=== PATIENT | female | born 1990 | race Caucasian/White ===

== ENCOUNTER 2017-06-08 18:15 | Emergency (ER) | payer MEDICAID ==
[~2017-06-08] VITALS: Ht 152.4 cm; Wt 106.3 kg
[~2017-06-08 18:15] MED LIST: AMOXICILLIN500 M2 PO; BACTRIM DS 8001 TA1 PO; HYDROCODONE-APA1 TA1 PO; KEFLEX 500MG.500 MG PO; LORTAB 10/3251 TAB PO; MOTRIN 400MG.400 MG PO; PERCOCET 5/3251 EACH PO; PRENATAL PLUS1 TA1 PO; TAMIFLU 75MG CA75 MG PO; ZOLOFT100 M1; ZYRTEC10 M2 PO
--- NOTE | 2017-06-08 18:31 | Emergency Room Report ---
History of Present Illness Time Seen by [id number] Presenting Problem in Triage Pt arrived:Walked Presenting Problem:PT C/O 4 INFECTED AREAS ON HER BODY FOR 3 DAYS ALONG WITH VOMITING FOR 3 DAYS. 4 AREAS INCLUDE RECTUM,RIGHT ARM PIT, RIGHT GROIN, MID STERNAL AREA. PT HAS HX OF THESE SORES R/T AUTOIMMUNE DISORDER SINCE SHE WAS 11. 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 N Clinical Suspician of Infection? N Mental Status: 1 - Regular (Normal Baseline) Sepsis Risk:Possible Sepsis Risk Have you (or family members/close friends) recently traveled outside the [place]? N If Yes, where/when: Have you had exposure to infectious disease within the past month? N TB? Other? Specify: Source patient, RN notes reviewed, RN/MD Exam Limitations no limitations Comment This is a 27-year-old feel patient presented emergency room with multiple sores on her skin for the past 3-4 days. Patient advised that she has been nauseated, running a fever, unable to hold anything down, recently. This appears to be in contrast with her composure and examination today. ALLERGIES Coded Allergies: propranolol (From INDERAL LA) (Mild, 04/07/16) latex (04/09/16) nickel (04/09/16) topiramate (I-HIVES 04/07/16) tramadol (04/07/16) Home Medications Reported Medications Gabapentin (Neurontin) 600 MG PO BID METFORMIN HCL (Metformin 500MG) 500 MG PO BID SERTRALINE HCL (Zoloft) History Medical History General CAD? No Angina: No [place]: No Hypertension? No Hyperlipidemia? No CHF? No DVT? No PE? No COPD? No Asthma? No Anemia? No GERD? No Gastric ulcers? No GI Bleed? No Hernia? No Thyroid Problems? No Hypothyroidism? No CVA? No Seizures? No Diabetes? No Insulin Dependent: No Insulin Pump: No Home FSBS? No Renal Insuffiency? No End Stage Renal Disease? No UTI? Yes Stones? No BPH? No GB Disease: No Nephritic Syndrome? No Asplenia? No Hepatitis? No Sickle Cell Disease? No Arthritis? No Migraines? No Cataracts? No Glaucoma? No MRSA? No HIV? No TB? No Anxiety? No Depression? No Cancer? No More? 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 Family History Family Hx Diabetes Yes CAD Yes Hypertension Yes Hyperlipidemia Yes Cancer Yes TB Yes Social History Smoking Hx Smoker: Current Every Day Smoker Tobacco: Yes Type Cigarettes Packs/day < 1 Pack Alcohol Alcohol: No Review of Systems All Other Systems Reviewed and Negative Skin rash Physical Exam Vital Signs Vital Signs Date Time Temp Pulse Resp B/P Pulse O2 O2 Flow FiO2 Ox Delivery Rate 06/08 2223 99.0 95 20 117/78 98 06/08 2106 20 06/08 210 99.8 95 16 117/78 98 06/08 1823 99.3 104 20 105/63 98 General Appearance normal appearance, WD/WN, no apparent distress Respiratory Status Yes: trachea midline, chest symmetrical, non tender chest. No: respiratory distress. Lung Sounds bilateral: normal breath sounds, lungs clear. 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 I do not evaluate any fluctuant area, requiring incision and drainage. Medical Decision Making LABS/Meds/Orders Pt receiving controlled substance in ED? No Comment [id number]-nurse advised the patient is refusing to complete her IV antibiotic ( vancomycin) course, and she decided to leave AGAINST MEDICAL ADVICE. Patient encouraged to return for reevaluation within 24 hours, and another course of IV antibiotics. Advised patient to follow up PCP if no better. Patient advised that she is aware of risks and complications associated with her premature departure, without completing her IV antibiotics. While in the emergency room the patient did not have a single episode of nausea or vomiting, also remained afebrile. Additionally the patient has made couple of attempts to obtain IV narcotics which were declined. Results/Orders Laboratory Tests 06/08/171915: Lactic Acid 0.8 06/08/171915: Sodium 139, Potassium 3.2 L, Chloride 101, Carbon Dioxide 27, BUN 11, Creatinine 0.9, Estimated Creat Clear 160, Estimated GFR (MDRD) 76, Glucose 85, Calcium 8.8, Total Bilirubin 0.6, AST 12 L, ALT 18, Alkaline Phosphatase 103, Total Protein 8.2, Albumin 3.5, Globulin 4.7 H, Albumin/Globulin Ratio 0.7 L, WBC 9.6, RBC 4.90, Hgb 14.7, Hct 44.4, MCV 90.5, RDW 14.2, Plt Count 319, MPV 8.2, Gran % 72.8, Gran # 7.0, Lymphocytes % 19.0, Monocytes % 6.6, Eosinophils % 1.1, Basophils % 0.4, Lymphocytes # 1.8, Monocytes # 0.6, Eosinophils # 0.1, Basophils # 0.0, PUBS MCHC 32.9, MCH 29.8 Current Medication Orders Sig/Rena Start time Last Medication Dose Route Stop Time Status Admin Sodium Chloride 1,000 ML .STK-MED ONE 06/08 2043 DC IV Sodium Chloride 250 ML .STK-MED ONE 06/08 2042 DC IV Vancomycin HCl 0 .STK-MED ONE 06/08 2042 DC .ROUTE Ketorolac 0 .STK-MED ONE 06/08 2041 DC Tromethamine .ROUTE Ondansetron HCl 0 .STK-MED ONE 06/08 2041 DC .ROUTE Potassium Chloride 0 .STK-MED ONE 06/08 2041 DC PO Vancomycin HCl 0 .STK-MED ONE 06/08 2040 DC .ROUTE Ketorolac 30 MG ONCE ONE 06/08 2030 DC 06/08 Tromethamine IV 06/08 Ondansetron HCl 4 MG ONCE ONE 06/08 2030 CAN IV 06/08 2031 Potassium Chloride 40 MEQ ONCE ONE 06/08 2015 DC 06/08 PO 06/08 Vancomycin HCl 2,000 MG ONCE ONE 06/08 2000 DCr 06/08 Sodium Chloride 250 ML IV 06/08 Hydromorphone HCl 1 MG ONCE ONE 06/08 1945 CANr IV 06/08 1946 Ondansetron HCl 4 MG ONCE ONE 06/08 1945 CAN IV 06/08 1946 Miscellaneous 1 EACH CONSULT PHARMACY 06/08 1915 DCD 06/08 Information * 06/09 0701 2106 Ondansetron HCl 4 MG ONCE ONE 06/08 1915 DC 06/08 IV 06/08 1916 210 Sodium Chloride 10 ML PRN PRN 06/08 1915 DCD IV 06/09 190 Sodium Chloride 1,000 ML .Q1H1M 06/08 1915 DC 06/08 IV 06/08 Sodium Chloride 10 ML PRN PRN 06/08 1915 DCD IV 06/09 1902 Orders Procedure Date/time Status CULTURE, BLOOD 06/08 1903 Active LACTIC ACID 06/08 1903 Complete IV SALINE LOCK 06/08 1901 Active CBC WITH AUTO DIFF 06/08 1901 Complete CHEM 12 PROFILE 06/08 1901 Complete Departure Departure Time of Disposition 2214 Disposition Against Medical Advice Clinical Impression Primary Impression: Cellulitis Qualifiers: Site of cellulitis: unspecified site Qualified Code: L03.90 - Cellulitis, unspecified Condition STABLE Referrals Vasquez ELLSWORTH,Conor: Tomorrow-Call Office Patient Instructions DI for Cellulitis -- Adult Additional Instructions Please take the medications prescribed per instructions, follow-up with the general surgeon (Dr Sevilla) as instructed. Discharge Counseling Counseled pt/family regarding diagnosis, test results, medications/RX, home care, follow up needs Comment Please take the medications prescribed per instructions, follow-up with the general surgeon as instructed. Prescriptions Current Visit Scripts SULFAMETHOXAZOLE W/TRIMETHOPRI (Bactrim Ds Tab) 1 TABLET PO BID #20 TAB Etodolac 200 MG PO QIDP PRN apin #28 [facility] Critical Care Critical Care No at [id number]
--- NOTE | 2017-06-08 18:31 | Emergency Room Report ---
History of Present Illness Time Seen by [id number] Presenting Problem in Triage Pt arrived:Walked Presenting Problem:PT C/O 4 INFECTED AREAS ON HER BODY FOR 3 DAYS ALONG WITH VOMITING FOR 3 DAYS. 4 AREAS INCLUDE RECTUM,RIGHT ARM PIT, RIGHT GROIN, MID STERNAL AREA. PT HAS HX OF THESE SORES R/T AUTOIMMUNE DISORDER SINCE SHE WAS 11. 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 N Clinical Suspician of Infection? N Mental Status: 1 - Regular (Normal Baseline) Sepsis Risk:Possible Sepsis Risk Have you (or family members/close friends) recently traveled outside the [place]? N If Yes, where/when: Have you had exposure to infectious disease within the past month? N TB? Other? Specify: Source patient, RN notes reviewed, RN/MD Exam Limitations no limitations Comment This is a 27-year-old feel patient presented emergency room with multiple sores on her skin for the past 3-4 days. Patient advised that she has been nauseated, running a fever, unable to hold anything down, recently. This appears to be in contrast with her composure and examination today. ALLERGIES Coded Allergies: propranolol (From INDERAL LA) (Mild, 04/07/16) latex (04/09/16) nickel (04/09/16) topiramate (I-HIVES 04/07/16) tramadol (04/07/16) Home Medications Reported Medications Gabapentin (Neurontin) 600 MG PO BID METFORMIN HCL (Metformin 500MG) 500 MG PO BID SERTRALINE HCL (Zoloft) History Medical History General CAD? No Angina: No [place]: No Hypertension? No Hyperlipidemia? No CHF? No DVT? No PE? No COPD? No Asthma? No Anemia? No GERD? No Gastric ulcers? No GI Bleed? No Hernia? No Thyroid Problems? No Hypothyroidism? No CVA? No Seizures? No Diabetes? No Insulin Dependent: No Insulin Pump: No Home FSBS? No Renal Insuffiency? No End Stage Renal Disease? No UTI? Yes Stones? No BPH? No GB Disease: No Nephritic Syndrome? No Asplenia? No Hepatitis? No Sickle Cell Disease? No Arthritis? No Migraines? No Cataracts? No Glaucoma? No MRSA? No HIV? No TB? No Anxiety? No Depression? No Cancer? No More? 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 Family History Family Hx Diabetes Yes CAD Yes Hypertension Yes Hyperlipidemia Yes Cancer Yes TB Yes Social History Smoking Hx Smoker: Current Every Day Smoker Tobacco: Yes Type Cigarettes Packs/day < 1 Pack Alcohol Alcohol: No Review of Systems All Other Systems Reviewed and Negative Skin rash Physical Exam Vital Signs Vital Signs Date Time Temp Pulse Resp B/P Pulse O2 O2 Flow FiO2 Ox Delivery Rate 06/08 2223 99.0 95 20 117/78 98 06/08 2106 20 06/08 210 99.8 95 16 117/78 98 06/08 1823 99.3 104 20 105/63 98 General Appearance normal appearance, WD/WN, no apparent distress Respiratory Status Yes: trachea midline, chest symmetrical, non tender chest. No: respiratory distress. Lung Sounds bilateral: normal breath sounds, lungs clear. 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 I do not evaluate any fluctuant area, requiring incision and drainage. Medical Decision Making LABS/Meds/Orders Pt receiving controlled substance in ED? No Comment [id number]-nurse advised the patient is refusing to complete her IV antibiotic ( vancomycin) course, and she decided to leave AGAINST MEDICAL ADVICE. Patient encouraged to return for reevaluation within 24 hours, and another course of IV antibiotics. Advised patient to follow up PCP if no better. Patient advised that she is aware of risks and complications associated with her premature departure, without completing her IV antibiotics. While in the emergency room the patient did not have a single episode of nausea or vomiting, also remained afebrile. Additionally the patient has made couple of attempts to obtain IV narcotics which were declined. Results/Orders Laboratory Tests 06/08/171915: Lactic Acid 0.8 06/08/171915: Sodium 139, Potassium 3.2 L, Chloride 101, Carbon Dioxide 27, BUN 11, Creatinine 0.9, Estimated Creat Clear 160, Estimated GFR (MDRD) 76, Glucose 85, Calcium 8.8, Total Bilirubin 0.6, AST 12 L, ALT 18, Alkaline Phosphatase 103, Total Protein 8.2, Albumin 3.5, Globulin 4.7 H, Albumin/Globulin Ratio 0.7 L, WBC 9.6, RBC 4.90, Hgb 14.7, Hct 44.4, MCV 90.5, RDW 14.2, Plt Count 319, MPV 8.2, Gran % 72.8, Gran # 7.0, Lymphocytes % 19.0, Monocytes % 6.6, Eosinophils % 1.1, Basophils % 0.4, Lymphocytes # 1.8, Monocytes # 0.6, Eosinophils # 0.1, Basophils # 0.0, PUBS MCHC 32.9, MCH 29.8 Current Medication Orders Sig/Rena Start time Last Medication Dose Route Stop Time Status Admin Sodium Chloride 1,000 ML .STK-MED ONE 06/08 2043 DC IV Sodium Chloride 250 ML .STK-MED ONE 06/08 2042 DC IV Vancomycin HCl 0 .STK-MED ONE 06/08 2042 DC .ROUTE Ketorolac 0 .STK-MED ONE 06/08 2041 DC Tromethamine .ROUTE Ondansetron HCl 0 .STK-MED ONE 06/08 2041 DC .ROUTE Potassium Chloride 0 .STK-MED ONE 06/08 2041 DC PO Vancomycin HCl 0 .STK-MED ONE 06/08 2040 DC .ROUTE Ketorolac 30 MG ONCE ONE 06/08 2030 DC 06/08 Tromethamine IV 06/08 Ondansetron HCl 4 MG ONCE ONE 06/08 2030 CAN IV 06/08 2031 Potassium Chloride 40 MEQ ONCE ONE 06/08 2015 DC 06/08 PO 06/08 Vancomycin HCl 2,000 MG ONCE ONE 06/08 2000 DCr 06/08 Sodium Chloride 250 ML IV 06/08 Hydromorphone HCl 1 MG ONCE ONE 06/08 1945 CANr IV 06/08 1946 Ondansetron HCl 4 MG ONCE ONE 06/08 1945 CAN IV 06/08 1946 Miscellaneous 1 EACH CONSULT PHARMACY 06/08 1915 DCD 06/08 Information * 06/09 0701 2106 Ondansetron HCl 4 MG ONCE ONE 06/08 1915 DC 06/08 IV 06/08 1916 210 Sodium Chloride 10 ML PRN PRN 06/08 1915 DCD IV 06/09 190 Sodium Chloride 1,000 ML .Q1H1M 06/08 1915 DC 06/08 IV 06/08 Sodium Chloride 10 ML PRN PRN 06/08 1915 DCD IV 06/09 1902 Orders Procedure Date/time Status CULTURE, BLOOD 06/08 1903 Active LACTIC ACID 06/08 1903 Complete IV SALINE LOCK 06/08 1901 Active CBC WITH AUTO DIFF 06/08 1901 Complete CHEM 12 PROFILE 06/08 1901 Complete Departure Departure Time of Disposition 2214 Disposition Against Medical Advice Clinical Impression Primary Impression: Cellulitis Qualifiers: Site of cellulitis: unspecified site Qualified Code: L03.90 - Cellulitis, unspecified Condition STABLE Referrals Vasquez ELLSWORTH,Conor: Tomorrow-Call Office Patient Instructions DI for Cellulitis -- Adult Additional Instructions Please take the medications prescribed per instructions, follow-up with the general surgeon (Dr Sevilla) as instructed. Discharge Counseling Counseled pt/family regarding diagnosis, test results, medications/RX, home care, follow up needs Comment Please take the medications prescribed per instructions, follow-up with the general surgeon as instructed. Prescriptions Current Visit Scripts SULFAMETHOXAZOLE W/TRIMETHOPRI (Bactrim Ds Tab) 1 TABLET PO BID #20 TAB Etodolac 200 MG PO QIDP PRN apin #28 [facility] ED Critical Care Critical Care No at 0053
[2017-06-08] MEDS ORDERED: METFORMIN 500M500 MG PO (18:33)
[2017-06-08] MEDS ORDERED: NEURONTIN600 MG PO (18:33)
--- OUTSIDE RECORDS SUMMARY | 2017-06-08 18:51 | External Medical Summary Rpt | CCD ---
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 04 04 2 56 28 SO 36 TA Ac IL 00 -0 -2 .0 PE 99 MA ti OS 00 1- 9- 00 RS 03 RE ve EC 45 20 20 N 50 11 11 FA JA OT 4 MN NE C LY T [address] UG MG TA BL ET UT 00 04 04 2 6. [address] Ac OV 08 -0 -2 70 PE 99 ON ti EN 51 1- 9- 0 RS 00 E ve TI 13 20 20 DI L 20 11 11 FA XI HF 1 MN E A LY D 90 DR VILLALOBOS UG G IN CLARK LE R UT 00 04 04 2 [address] Ac OP 24 -0 -2 .0 PE 99 ON ti RA 50 1- 9- 00 RS 01 E ve NO 08 20 20 DI LO 41 11 11 FA XI L 1 MN E ER LY D 60 DR UG MG CA PS UL E BUNN 00 04 04 2 [address] Ac CR 59 -0 -2 0. PE 99 ON ti AL 10 RS 04 E ve FA 78 20 20 0 DI TE 00 11 11 FA XI 1 5 MN E LY D GM DR AMAYA UG BL ET NA 68 03 04 1 60 30 SO 36 CL Ac UT 46 -0 -2 .0 PE 75 AR ti OX 20 8 6 RS 13 KE ve EN 19 20 20 00 11 11 FA DE 50 5 MN RE 0 LY K MG J DR TA UG BL ET 00 06 04 2 60 30 SO 34 TA Ac 17 -1 -0 .0 PE 48 MA ti 25 1- 1- 00 RS 85 RE ve 66 20 20 N 56 10 11 FA JA 0 MN NE LY T DR UG MA 00 04 04 2 9. 30 SO 36 TA Ac XA 00 -0 -0 00 PE 99 MA ti LT 60 1- 1- 0 RS 02 RE ve 26 20 20 N 10 71 11 11 FA JA 8 MN NE MG LY T TA DR BL UG ET UT 37 04 04 2 56 28 SO 36 TA Ac IL 00 -0 -0 .0 PE 99 MA ti OS 00 RS 03 RE ve EC 45 20 20 N 50 11 11 FA JA OT 4 MN NE C LY T [address] UG MG TA BL ET UT 00 04 04 2 [address] Ac OP 24 -0 -0 .0 PE 99 ON ti RA 50 RS 01 E ve NO 08 20 20 DI LO 41 11 11 FA XI L 1 MN E ER LY D 60 DR BRIGIDO MG CA PS UL E BUNN 00 04 04 2 [address] Ac CR 59 -0 -0 0. PE 99 ON ti AL 10 RS 04 E ve FA 78 20 20 0 DI TE 00 11 11 FA XI 1 5 MN E LY D GM DR TA UG BL ET VE 68 04 04 0 [address] Ac NL 38 -0 -0 0. PE 99 ON ti AF 20 RS 05 E ve AX 02 20 20 0 DI IN 10 11 11 FA XI E 1 MN E HC LY D L 75 DR UG MG TA BL ET UT 00 04 04 2 6. [address] Ac OV 08 -0 -0 70 PE 99 ON ti EN 51 1- 1- 0 RS 00 E ve TI 13 20 20 DI L 20 11 11 FA XI HF 1 MN E A LY D 90 DR VILLALOBOS UG G IN CLARK LE R NA 68 03 03 1 60 30 SO 36 CL Ac UT 46 -0 -0 .0 PE 75 AR ti OX 20 8- 8- 00 RS 13 KE ve EN 19 20 20 00 11 11 FA DE 50 5 MN RE 0 LY K MG J DR TA UG BL ET VE 68 01 02 2 60 30 SO 36 TA Ac NL 38 -0 -2 .0 PE 16 MA ti AF 20 4- 1- 00 RS 96 RE ve AX 02 20 20 N IN 10 11 11 FA JA E 1 MN NE HC LY T L 75 DR UG MG TA BL ET MA 00 12 02 2 9. 30 SO 35 TA Ac XA 00 -0 -2 00 PE 93 MA ti LT 60 3- 1- 0 RS 98 RE ve 26 20 20 N 10 71 10 11 FA JA 8 MN NE MG LY T TA DR BL UG ET UT 00 12 02 2 6. [address] Ac OV 08 -0 -2 70 PE 93 ON ti EN 51 3- 1- 0 RS 93 E ve TI 13 20 20 DI L 20 10 11 FA XI HF 1 MN E A LY D 90 DR MC UG G IN CLARK LE R TA 00 02 02 0 [address] Ac MN 00 -0 -0 .0 PE 46 ON ti FL 40 7- 7- 00 RS 24 E ve U 80 20 20 DI 75 08 11 11 FA XI 5 MN E MG LY D CA DR PS UG UL E ME 00 02 02 0 [address] Ac TH 60 -0 -0 .0 PE 46 ON ti YL 34 7- 7- 00 RS 25 E ve UT 59 20 20 DI ED 31 11 11 FA XI NI 5 MN E SO LY D LO NE DR 4 UG MG DO SE PK 54 02 02 0 [address] Ac 83 -0 -0 0. PE 46 ON ti 80 7- 7- 00 RS 26 E ve 54 20 20 0 DI 48 11 11 FA XI 0 MN E LY D DR UG AZ 00 02 02 0 6. [address] Ac IT 78 -0 -0 00 PE 46 ON ti HR 11 7- 7- 0 RS 27 E ve OM 49 20 20 DI YC 66 11 11 FA XI IN 8 MN E LY D [address] MG UG TA BL ET UT 00 12 01 2 6. [address] Ac OV 08 -0 -2 70 PE 93 ON ti EN 51 3- 4- 0 RS 93 E ve TI 13 20 20 DI L 20 10 11 FA XI HF 1 MN E A LY D 90 DR UG G IN CLARK LE R 49 10 01 2 30 30 SO 35 TA Ac 88 -2 -2 .0 PE 57 MA ti 40 7- 4- 00 RS 77 RE ve 28 20 20 N 20 10 11 FA JA 1 MN NE LY T DR UG 00 10 01 2 60 5 SO 35 TA Ac 09 -2 -2 .0 PE 51 MA ti 50 0- 4- 00 RS 66 RE ve 24 20 20 N 00 10 11 FA JA 1 MN NE LY T DR UG UT 37 10 01 2 28 28 SO 35 TA Ac IL 00 -2 -2 .0 PE 51 MA ti OS 00 0- 4- 00 RS 68 RE ve EC 45 20 20 N 50 10 11 FA JA OT 4 MN NE C LY T [address] UG MG TA BL ET 00 12 01 2 9. 30 SO 35 TA Ac 00 -0 -2 00 PE 93 MA ti 60 3- 4- 0 RS 98 RE ve 26 20 20 N 71 10 11 FA JA 2 MN NE LY T DR UG 59 07 01 5 1. 90 SO 34 TA Ac 76 -2 -1 00 PE 80 MA ti 24 8- 9- 0 RS 67 RE ve 53 20 20 N 80 10 11 FA JA 1 MN NE LY T DR UG FL 00 01 01 0 3. 3 SO 36 TA Ac UC 17 -0 -0 00 PE 16 MA ti ON 25 4- 4- 0 RS 95 RE ve AZ 41 20 20 N OL 21 11 11 FA JA E 1 MN NE 15 LY T [address] UG TA BL ET VE 68 01 01 2 60 30 SO 36 TA Ac NL 38 -0 -0 .0 PE 16 MA ti AF 20 4- 4- 00 RS 96 RE ve AX 02 20 20 N IN 10 11 11 FA JA E 1 MN NE HC LY T L 75 DR UG MG TA BL ET PA 68 10 12 2 30 30 SO 35 TA Ac RO 38 -2 -0 .0 PE 51 MA ti XE 20 0- 3- 00 RS 67 RE ve TI 09 20 20 N NE 80 10 10 FA JA 6 MN NE HC LY T L 20 DR UG MG TA BL ET UT 37 10 12 2 28 28 SO 35 TA Ac IL 00 -2 -0 .0 PE 51 MA ti OS 00 0- 3- 00 RS 68 RE ve EC 45 20 20 N 50 10 10 FA JA OT 4 MN NE C LY T [address] UG MG TA BL ET 49 10 12 2 30 30 SO 35 TA Ac 88 -2 -0 .0 PE 57 MA ti 40 7- 3- 00 RS 77 RE ve 28 20 20 N 20 10 10 FA JA 1 MN NE LY T DR UG 00 12 12 2 9. 30 SO 35 TA Ac 00 -0 -0 00 PE 93 MA ti 60 3- 3- 0 RS 98 RE ve 26 20 20 N 71 10 10 FA JA 2 MN NE LY T DR UG 00 01 12 5 30 30 SO 33 TA Ac 00 -2 -0 .0 PE 35 MA ti 60 0- 3- 00 RS 44 RE ve 11 20 20 N 73 10 10 FA JA 1 MN NE LY T DR UG 00 10 12 2 60 5 SO 35 TA Ac 09 -2 -0 .0 PE 51 MA ti 50 0- 3- 00 RS 66 RE ve 24 20 20 N 00 10 10 FA JA 1 MN NE LY T DR UG UT 00 12 12 2 6. [address] Ac OV 08 -0 -0 70 PE 93 ON ti EN 51 3- 3- 0 RS 93 E ve TI 13 20 20 DI L 20 10 10 FA XI HF 1 MN E A LY D 90 DR MC UG G IN CLARK LE R BUNN 00 12 12 2 [address] Ac CR 59 -0 -0 0. PE 94 ON ti AL 10 3- 3- 00 RS 00 E ve FA 78 20 20 0 DI TE 00 10 10 FA XI 1 5 MN E LY D GM DR TA UG BL ET UT 00 10 11 0 6. 15 SO 35 TA Ac OV 08 -2 -1 70 PE 57 MA ti EN 51 7- 0- 0 RS 79 RE ve TI 13 20 20 N L 20 10 10 FA JA HF 1 MN NE A LY T 90 DR MC UG G IN CLARK LE R UT 00 10 10 0 20 8 SO 35 TA Ac ED 59 -2 -2 .0 PE 57 MA ti NI 15 7- 7- 00 RS 76 RE ve SO 44 20 20 N NE 20 10 10 FA JA 5 MN NE [address] UG TA BL ET 49 10 10 2 30 30 SO 35 TA Ac 88 -2 -2 .0 PE 57 MA ti 40 7- 7- 00 RS 77 RE ve 28 20 20 N 20 10 10 FA JA 1 MN NE LY T DR UG 00 10 10 0 12 30 SO 35 TA Ac 00 -2 -2 .0 PE 57 MA ti 60 7- 7- 00 RS 78 RE ve 26 20 20 N 71 10 10 FA JA 2 MN NE LY T DR UG CL 00 10 10 0 20 10 SO 35 TA Ac AR 78 -2 -2 .0 PE 57 MA ti IT 11 7- 7- 00 RS 75 RE ve HR 96 20 20 N OM 26 10 10 FA JA YC 0 MN NE IN LY T 50 DR 0 UG MG TA BL ET AM 00 10 10 0 30 10 SO 35 TA Ac OX 78 -2 -2 .0 PE 55 MA ti IC 12 5- 5- 00 RS 57 RE ve IL 61 20 20 N LI 30 10 10 FA JA N 5 MN NE [address] L[address] UG CA PS UL E 60 10 10 0 24 6 SO 35 TA Ac 25 -2 -2 0. PE 55 MA ti 80 5- 5- 00 RS 58 RE ve 23 20 20 0 N 91 10 10 FA JA 6 MN NE LY T DR UG 00 10 10 2 60 5 SO 35 TA Ac 09 -2 -2 .0 PE 51 MA ti 50 0- 0- 00 RS 66 RE ve 24 20 20 N 00 10 10 FA JA 1 MN NE LY T DR UG PA 68 10 10 2 30 30 SO 35 TA Ac RO 38 -2 -2 .0 PE 51 MA ti XE 20 0- 0- 00 RS 67 RE ve TI 09 20 20 N NE 80 10 10 FA JA 6 MN NE HC LY T L 20 DR UG MG TA BL ET UT 37 10 10 2 28 28 SO 35 TA Ac IL 00 -2 -2 .0 PE 51 MA ti OS 00 0- 0- 00 RS 68 RE ve EC 45 20 20 N 50 10 10 FA JA OT 4 MN NE C LY T [address] UG MG TA BL ET 59 07 10 5 1. 90 SO 34 TA Ac 76 -2 -1 00 PE 80 MA ti 24 8- 9- 0 RS 67 RE ve 53 20 20 N 80 10 10 FA JA 1 MN NE LY T DR UG VE 00 01 10 5 18 30 SO 33 TA Ac NT 17 -2 -1 .0 PE 35 MA ti OL 30 0- 1- 00 RS 42 RE ve IN 68 20 20 N 22 10 10 FA JA HF 0 MN NE A LY T 90 DR MC UG G IN CLARK LE R 00 09 09 0 24 4 SO 35 WO Ac 59 -2 -2 .0 PE 25 NG ti 10 1- 1- 00 RS 65 , ve 34 20 20 MD 90 10 10 FA 5 MN LE LY SL EY DR BRIGIDO VE 00 01 09 5 18 30 SO 33 TA Ac NT 17 -2 -1 .0 PE 35 MA ti OL 30 0- 0- 00 RS 42 RE ve IN 68 20 20 N 22 10 10 FA JA HF 0 MN NE A LY T 90 DR SMILEY G IN CLARK LE R OX 00 09 09 0 20 3 SO 35 WO Ac YC 40 -0 -0 .0 PE 15 NG ti OD 60 9- 9- 00 RS 33 , ve ON 51 20 20 MD E- 20 10 10 FA AC 5 MN LE ET LY SL AM EY IN DR OP UG HE N 5- 32 5 CE 68 09 09 0 20 10 SO 35 WO Ac FA 18 -0 -0 .0 PE [address] 00 00 RS 34 , ve OX 18 20 20 MD IL 00 10 10 FA 1 MN LE 50 LY SL [address] UG CA PS UL E OX 00 08 08 0 21 5 WA 22 BU Ac YC 40 -2 -2 .0 L- 18 SE ti OD 60 5- 5- 00 MA 21 MA ve ON 51 20 20 RT 9 N E- 20 10 10 JA AC 1 PH SO ET AR N AM MA L IN CY OP # HE N 10 5- 04 32 93 5 CE 68 08 08 0 28 7 WA 70 BU Ac PH 18 -2 -2 .0 L- 44 SE ti AL 00 5- 5- 00 MA 93 MA ve EX 12 20 20 RT 3 N IN 20 10 10 JA 1 PH SO 50 AR N 0 MA L MG CY # CA PS 10 UL 04 E 93 BUNN 62 04 08 2 9. 30 SO 34 TA Ac MA 75 -2 -0 00 PE 12 MA ti TR 60 6- 6- 0 RS 27 RE ve IP 52 20 20 N TA 26 10 10 FA JA N 9 MN NE BUNN LY T CC DR 10 UG 0 MG TA BL ET 00 06 08 2 60 30 SO 34 TA Ac 17 -1 -0 .0 PE 48 MA ti 25 1- 6- 00 RS 85 RE ve 66 20 20 N 56 10 10 FA JA 0 MN NE LY T DR BRIGIDO VE 00 01 08 5 18 30 SO 33 TA Ac NT 17 -2 -0 .0 PE 35 MA ti OL 30 0- 4- 00 RS 42 RE ve IN 68 20 20 N 22 10 10 FA JA HF 0 MN NE A LY T 90 DR SMILEY G IN CLARK LE R 59 07 07 5 1. 90 SO 34 TA Ac 76 -2 -2 00 PE 80 MA ti 24 8- 8- 0 RS 67 RE ve 53 20 20 N 80 10 10 FA JA 1 MN NE LY T DR UG VE 00 01 07 5 18 30 SO 33 TA Ac NT 17 -2 -0 .0 PE 35 MA ti OL 30 0- 7- 00 RS 42 RE ve IN 68 20 20 N 22 10 10 FA JA HF 0 MN NE A LY T 90 DR SMILEY G IN CLARK LE R CL 00 01 07 5 60 30 SO 33 TA Ac ON 37 -2 -0 .0 PE 35 MA ti ID 80 0- 6- 00 RS 40 RE ve IN 15 20 20 N E 21 10 10 FA JA HC 0 MN NE L LY T 0. 1 DR MG UG TA BL ET 00 06 06 2 60 30 SO 34 TA Ac 17 -1 -1 .0 PE 48 MA ti 25 1- 1- 00 RS 85 RE ve 66 20 20 N 56 10 10 FA JA 0 MN NE LY T DR UG VE 00 01 06 5 18 30 SO 33 TA Ac NT 17 -2 -0 .0 PE 35 MA ti OL 30 0- 8- 00 RS 42 RE ve IN 68 20 20 N 22 10 10 FA JA HF 0 MN NE A LY T 90 DR SMILEY G IN CLARK LE R 00 01 06 5 30 30 SO 33 TA Ac 00 -2 -0 .0 PE 35 MA ti 60 0- 8- 00 RS 44 RE ve 11 20 20 N 73 10 10 FA JA 1 MN NE LY T DR UG TO 68 03 06 2 90 30 SO 33 TA Ac PI 46 -2 -0 .0 PE 90 MA ti RA 20 9- 8- 00 RS 64 RE ve MA 15 20 20 N TE 36 10 10 FA JA 0 MN NE [address] UG TA BL ET 00 04 06 2 60 30 SO 34 TA Ac 11 -2 -0 .0 PE 08 MA ti 57 0- 8- 00 RS 13 RE ve 01 20 20 N 81 10 10 FA JA 3 MN NE LY T DR UG CL 00 01 05 5 60 30 SO 33 TA Ac ON 37 -2 -2 .0 PE 35 MA ti ID 80 0- 6- 00 RS 40 RE ve IN 15 20 20 N E 21 10 10 FA JA HC 0 MN NE L LY T 0. 1 DR MG UG TA BL ET CL 00 05 05 0 60 30 SO 34 TA Ac AR 55 -2 -2 .0 PE 33 MA ti AV 51 0- 0- 00 RS 40 RE ve IS 05 20 20 N 78 10 10 FA JA 40 6 MN NE LY T MG DR CA UG PS UL E CL 00 05 05 0 45 30 SO 34 TA Ac ON 18 -1 -1 .0 PE 32 MA ti AZ 50 9- 9- 00 RS 33 RE ve EP 06 20 20 N AM 31 10 10 FA JA 0 MN NE 0. LY T [address] UG TA BL ET 59 05 05 0 1. 90 SO 34 TA Ac 76 -1 -1 00 PE 25 MA ti 24 1- 1- 0 RS 11 RE ve 53 20 20 N 80 10 10 FA JA 1 MN NE LY T DR UG AL 24 05 05 0 24 8 SO 34 Ac LE 38 -0 -0 .0 PE 22 LL ti RG 50 7- 7- 00 RS 85 AF ve Y 46 20 20 LO 25 26 10 10 FA R 2 MN OS MG LY IA S CA DR M PS UG UL E TO 68 03 05 2 90 30 SO 33 TA Ac PI 46 -2 -0 .0 PE 90 MA ti RA 20 9- 6- 00 RS 64 RE ve MA 15 20 20 N TE 36 10 10 FA JA 0 MN NE [address] UG TA BL ET TR 60 05 05 0 60 5 SO 34 TA Ac IA 43 -0 -0 .0 PE 21 MA ti MC 20 6- 6- 00 RS 44 RE ve IN 56 20 20 N OL 16 10 10 FA JA ON 0 MN NE E LY T 0. 1% DR UG LO TI ON 50 05 05 0 30 10 SO 34 TA Ac 11 -0 -0 .0 PE 20 MA ti 10 5- 5- 00 RS 65 RE ve 30 20 20 N 80 10 10 FA JA 2 MN NE LY T DR UG UT 00 05 05 0 12 6 SO 34 TA Ac ED 59 -0 -0 .0 PE 20 MA ti NI 15 5- 5- 00 RS 66 RE ve SO 44 20 20 N NE 20 10 10 FA JA 5 MN NE [address] UG TA BL ET VE 00 01 04 5 18 30 SO 33 TA Ac NT 17 -2 -2 .0 PE 35 MA ti OL 30 0- 8- 00 RS 42 RE ve IN 68 20 20 N 22 10 10 FA JA HF 0 MN NE A LY T 90 DR MC UG G IN CLARK LE R BUNN 62 04 04 2 9. 30 SO 34 TA Ac MA 75 -2 -2 00 PE 12 MA ti TR 60 6- 6- 0 RS 27 RE ve IP 52 20 20 N TA 26 10 10 FA JA N 9 MN NE BUNN LY T CC DR 10 UG 0 MG TA BL ET 00 04 04 2 60 30 SO 34 TA Ac 11 -2 -2 .0 PE 08 MA ti 57 0- 0- 00 RS 13 RE ve 01 20 20 N 81 10 10 FA JA 3 MN NE LY T DR UG IB 55 04 04 0 60 15 SO 34 TA Ac UP 11 -2 -2 .0 PE 08 MA ti RO 10 0- 0- 00 RS 14 RE ve FE 68 20 20 N N 40 10 10 FA JA 80 5 MN NE [address] TA UG BL ET CL 00 04 04 0 60 30 SO 34 TA Ac AR 55 -2 -2 .0 PE 08 MA ti AV 51 0- 0- 00 RS 16 RE ve IS 05 20 20 N 78 10 10 FA JA 40 6 MN NE LY T MG DR CA UG PS UL E TO 68 03 03 2 90 30 SO 33 TA Ac PI 46 -2 -2 .0 PE 90 MA ti RA 20 9 9- 00 RS 64 RE ve MA 15 20 20 N TE 36 10 10 FA JA 0 MN NE [address] UG TA BL ET DO 00 03 03 0 28 14 SO 33 TA Ac XY 14 -2 -2 .0 PE 90 MA ti CY 33 9- 9- 00 RS 65 RE ve CL 14 20 20 N IN 20 10 10 FA JA E 5 MN NE HY LY T CL AT DR E UG 10 0 MG CA P UT 10 03 03 0 40 7 SO 33 TA Ac OM 70 -2 -2 .0 PE 90 MA ti ET 20 9 9 00 RS 66 RE ve CLARK 00 20 20 N ZI 31 10 10 FA JA NE 0 MN NE LY T 25 DR MG UG TA BL ET RA 53 01 03 5 60 30 SO 33 TA Ac NI 74 -2 -0 .0 PE 35 MA ti TI 60 0- 4- 00 RS 43 RE ve DI 25 20 20 N NE 30 10 10 FA JA 5 MN NE 15 LY T [address] UG TA BL ET 00 01 03 5 30 30 SO 33 TA Ac 00 -2 -0 .0 PE 35 MA ti 60 0- 4- 00 RS 44 RE ve 11 20 20 N 73 10 10 FA JA 1 MN NE LY T DR UG CL 00 01 03 5 60 30 SO 33 TA Ac ON 37 -2 -0 .0 PE 35 MA ti ID 80 0- 4- 00 RS 40 RE ve IN 15 20 20 N E 21 10 10 FA JA HC 0 MN NE L LY T 0. 1 DR MG UG TA BL ET VE 00 01 03 5 18 30 SO 33 TA Ac NT 17 -2 -0 .0 PE 35 MA ti OL 30 0- 4- 00 RS 42 RE ve IN 68 20 20 N 22 10 10 FA JA HF 0 MN NE A LY T 90 DR MC UG G IN CLARK LE R DE 60 01 02 00 [address] Ac XA 43 -2 -1 .0 PE 43 ON ti ME 20 9- 1- 00 RS 17 E ve TH 46 20 20 DI 60 10 10 FA XI ON 8 MN E E LY D 0. 5 DR MG UG /5 ML EL X BA 00 02 00 [address] Ac NO 90 -2 -1 0. PE 43 ON ti PH 45 9- 1- 00 RS 17 E ve EN 17 20 20 0 DI 41 10 10 FA XI 12 6 MN E .[address] /5 UG ML SO CHAVEZ TI ON NY 00 02 00 [address] 60 -2 -1 .0 PE 43 ON ti AT 31 9- 1- 00 RS 17 E ve IN 48 20 20 DI 15 10 10 FA XI 10 8 MN E 0, LY D [address] UN UG IT /M L BUNN SP CH 00 02 00 [address] Ac ER 60 -2 -1 8. PE 43 ON ti AT 31 9- 1- 00 RS 16 E ve US 07 20 20 0 DI SI 55 10 10 FA XI N 4 MN E AC LY D SY DR RU UG P AZ 64 01 02 00 6. [address] Ac IT 67 -2 -1 00 PE 43 ON ti HR 90 9- 1- 0 RS 15 E ve OM 96 20 20 DI YC 10 10 10 FA XI IN 5 MN E LY D [address] MG UG TA BL ET TI 00 07 24 00 40 14 SO 33 TA Ac ZA 18 -1 -2 .0 PE 30 MA ti NI 50 4- 8- 00 RS 99 RE ve DI 03 20 20 N NE 45 10 10 FA JA 1 MN NE HC LY T L 2 DR MG UG TA BL ET NA 68 01 01 00 60 30 SO 33 TA Ac UT 46 -1 -2 .0 PE 30 MA ti OX 20 4- 8- 00 RS 98 RE ve EN 19 20 20 N 00 10 10 FA JA 50 5 MN NE [address] TA UG BL ET CL 00 01 00 60 30 SO 33 TA Ac ON 37 -2 -2 .0 PE 35 MA ti ID 80 0- 8- 00 RS 40 RE ve IN 15 20 20 N E 21 10 10 FA JA HC 0 MN NE L LY T 0. 1 DR MG UG TA BL ET RA 53 01 00 60 30 SO 33 TA Ac NI 74 -2 -2 .0 PE 35 MA ti TI 60 0- 8- 00 RS 43 RE ve DI 25 20 20 N NE 30 10 10 FA JA 5 MN NE 15 LY [address] UG TA BL ET CO 50 01 00 30 30 SO 33 TA Ac NC 45 -2 -2 .0 PE 35 MA ti ER 80 0- 8- 00 RS 41 RE ve TA 58 20 20 N 60 10 10 FA JA ER 1 MN NE LY T 36 DR MG UG TA BL ET TO 68 01 00 70 28 SO 33 TA Ac PI 46 -1 -2 .0 PE 30 MA ti RA 20 4- 8- 00 RS 97 RE ve MA 10 20 20 N TE 86 10 10 FA JA 0 MN NE [address] UG TA BL ET VE 00 07 24 00 8. 15 SO 33 TA Ac NT 17 -2 -2 00 PE 35 MA ti OL 30 0- 8- 0 RS 42 RE ve IN 68 20 20 N 22 10 10 FA JA HF 4 MN NE A LY T 90 DR MC UG G IN CLARK LE R 00 01 01 00 30 30 SO 33 TA Ac 00 -2 -2 .0 PE 35 MA ti 60 0- 8- 00 RS 44 RE ve 11 20 20 N 73 10 10 FA JA 1 MN NE LY T DR UG UT 00 10 01 00 6. 15 SO 32 TA Ac OV 08 -0 -1 70 PE 44 MA ti EN 51 5- 4- 0 RS 26 RE ve TI 13 20 20 N L 20 09 10 FA JA HF 1 MN NE A LY T 90 DR MC UG G IN CLARK LE R ME 00 08 12 01 1. 90 SO [address] 70 -2 -1 00 PE 06 MA ti OX 36 4- 7- 0 RS 97 RE ve YP 80 20 20 N RO 10 09 09 FA JA GE [address] LY T ER ON DR E UG 15 0 MG /M L BU 00 11 12 00 12 10 SO 32 TA Ac TA 14 -3 -1 0. PE 93 MA ti LB 31 0- 7- 00 RS 35 RE ve -A 78 20 20 0 N CE 70 09 09 FA JA TA 1 MN NE MN LY T N- CA DR FF UG 50 -3 25 -4 0 00 11 12 00 56 7 SO 32 TA Ac 07 -3 -1 .0 PE 93 MA ti 46 0- 7- 00 RS 36 RE ve 30 20 20 N 41 09 09 FA JA 3 MN NE LY T DR UG UT 00 11 12 00 12 6 SO 32 TA Ac ED 59 -3 -1 .0 PE 93 MA ti NI 15 0- 7- 00 RS 37 RE ve SO 44 20 20 N NE 20 09 09 FA JA 5 MN NE [address] UG TA BL ET AM 00 11 11 00 20 10 SO 32 TA Ac OX 14 -0 -1 .0 PE 73 MA ti IC 39 5- 9- 00 RS 25 RE ve IL 95 20 20 N LI 10 09 09 FA JA N 1 MN NE 87 LY T [address] UG TA BL ET UT 00 11 11 00 12 6 SO 32 TA Ac OM 60 -0 -1 0. PE 68 MA ti ET 31 2- 9- 00 RS 67 RE ve CLARK 58 20 20 0 N ZI 55 09 09 FA JA NE 8 MN NE -C LY T OD EI DR NE UG SY RU P CL 00 10 11 00 20 10 SO 32 TA Ac AR 78 -2 -0 .0 PE 67 MA ti IT 11 9- 5- 00 RS 04 RE ve HR 96 20 20 N OM 26 09 09 FA JA YC 0 MN NE IN LY T 50 DR 0 UG MG TA BL ET 66 10 11 00 11 12 SO 32 TA Ac 99 -2 -0 8. PE 67 MA ti 20 9- 5- 00 RS 05 RE ve 22 20 20 0 N 00 09 09 FA JA 4 MN NE LY T DR UG PO 51 10 10 00 52 30 SO 32 TA Ac LY 99 -0 -2 7. PE 44 MA ti ET 10 5- 2- 00 RS 29 RE ve HY 45 20 20 0 N LE 75 09 09 FA JA NE 7 MN NE LY T GL YC DR OL UG 33 50 PO WD CL 00 09 10 00 60 30 SO 32 TA Ac ON 37 -0 -2 .0 PE 21 MA ti ID 80 9- 2- 00 RS 90 RE ve IN 15 20 20 N E 21 09 09 FA JA HC 0 MN NE L LY T 0. 1 DR MG UG TA BL ET UT 00 09 10 01 6. 15 SO 32 TA Ac OV 08 -0 -2 70 PE 21 MA ti EN 51 9- 2- 0 RS 86 RE ve TI 13 20 20 N L 20 09 09 FA JA HF 1 MN NE A LY T 90 DR SMILEY G IN CLARK LE R AZ 64 10 10 00 6. 5 SO 32 TA Ac IT 67 -0 -2 00 PE 44 MA ti HR 90 5- 2- 0 RS 25 RE ve OM 96 20 20 N YC 10 09 09 FA JA IN 5 MN NE LY T [address] MG UG TA BL ET CO 50 10 10 00 30 30 SO 32 TA Ac NC 45 -0 -2 .0 PE 44 MA ti ER 80 5- 2- 00 RS 30 RE ve TA 58 20 20 N 60 09 09 FA JA ER 1 MN NE LY T 36 DR MG UG TA BL ET 49 10 10 00 30 10 SO 32 TA Ac 88 -0 -2 .0 PE 44 MA ti 40 5- 2- 00 RS 31 RE ve 77 20 20 N 90 09 09 FA JA 5 MN NE LY T DR UG 00 09 10 00 30 4 SO 32 SC Ac 59 -2 -0 .0 PE 31 HU ti 10 1- 8- 00 RS 61 LS ve 34 20 20 TA 90 09 09 FA D 5 MN CA LY MP BE DR LL UG K 00 09 09 00 20 20 SO 32 TA Ac 09 -0 -2 .0 PE 21 MA ti 51 9- 4- 00 RS 84 RE ve 29 20 20 N 00 09 09 FA JA 6 MN NE LY T DR UG UT 00 09 09 00 6. 15 SO 32 TA Ac OV 08 -0 -2 70 PE 21 MA ti EN 51 9- 4- 0 RS 86 RE ve TI 13 20 20 N L 20 09 09 FA JA HF 1 MN NE A LY T 90 DR VILLALOBOS UG G IN CLARK LE R AD 00 09 09 00 60 30 SO 32 TA Ac VA 17 -0 -2 .0 PE 21 MA ti IR 30 9- 4- 00 RS 85 RE ve 69 20 20 N 25 60 09 09 FA JA 0- 0 MN NE 50 LY T DI SK UG US SP 00 09 09 00 30 30 SO 32 TA Ac IR 60 -0 -2 .0 PE 21 MA ti ON 35 9- 4- 00 RS 87 RE ve OL 76 20 20 N AC 42 09 09 FA JA TO 1 MN NE NE LY T 50 DR UG MG TA BL ET AM 00 09 09 00 20 10 SO 32 TA Ac OX 14 -0 -2 .0 PE 21 MA ti IC 39 9- 4- 00 RS 82 RE ve IL 95 20 20 N LI 10 09 09 FA JA N 1 MN NE 87 LY T [address] UG TA BL ET KE 00 09 09 00 20 5 SO 32 TA Ac TO 37 -1 -2 .0 PE 25 MA ti RO 81 4- 4- 00 RS 93 RE ve LA 13 20 20 N C 40 09 09 FA JA 10 1 MN NE LY T MG DR TA UG BL ET 60 09 09 00 60 30 SO 32 TA Ac 50 -0 -2 .0 PE 21 MA ti 50 9- 4- 00 RS 89 RE ve 02 20 20 N 50 09 09 FA JA 8 MN NE LY T DR UG AC 00 09 09 00 20 2 SO 32 TA Ac ET 40 -1 -2 .0 PE 25 MA ti AM 60 3- 4- 00 RS 75 RE ve IN 48 20 20 N OP 41 09 09 FA JA HE 0 MN NE N- LY T CO D DR #3 UG TA BL ET AM 66 09 09 00 20 10 SO 32 TA Ac OX 68 -1 -2 .0 PE 27 MA ti -C 51 5- 4- 00 RS 14 RE ve LA 00 20 20 N V 10 09 09 FA JA 87 1 MN NE 5- LY T [address] MG UG TA BL ET ON 55 09 09 00 12 30 SO 32 TA Ac DA 11 -1 -2 .0 PE 25 MA ti NS 10 3- 4- 00 RS 92 RE ve ET 15 20 20 N RO 33 09 09 FA JA N 0 MN NE HC LY T L 4 DR MG UG TA BL ET 00 09 09 00 10 3 SO 32 TA Ac 11 -0 -2 .0 PE 21 MA ti 51 9- 4- 00 RS 83 RE ve 04 20 20 N 10 09 09 FA JA 3 MN NE LY T DR UG FL 60 09 09 00 16 30 SO 32 TA Ac UT 50 -0 -2 .0 PE 21 MA ti IC 50 9- 4- 00 RS 88 RE ve 82 20 20 N ON 90 09 09 FA JA E 1 MN NE UT LY T OP DR 50 UG MC G SP RA Y ME 00 08 09 00 5. 90 SO [address] 70 -2 -1 00 PE 06 MA ti OX 36 4- 0- 0 RS 97 RE ve YP 80 20 20 N RO 10 09 09 FA JA GE [address] LY T ER ON DR E UG 15 0 MG /M L CL 00 08 08 00 60 30 SO 32 TA Ac ON 37 -1 -2 .0 PE 01 MA ti ID 80 7- 7- 00 RS 17 RE ve IN 15 20 20 N E 21 09 09 FA JA HC 0 MN NE L LY T 0. 1 DR MG UG TA BL ET CO 50 08 08 00 30 30 SO 32 TA Ac NC 45 -1 -2 .0 PE 01 MA ti ER 80 7- 7- 00 RS 15 RE ve TA 58 20 20 N 60 09 09 FA JA ER 1 MN NE LY T 36 DR MG UG TA BL ET 63 08 08 00 20 10 SO 32 TA Ac 82 -1 -2 .0 PE 02 MA ti 40 8- 7- 00 RS 36 RE ve 05 20 20 N 64 09 09 FA JA 0 MN NE LY T DR UG 64 08 08 00 20 10 SO 32 TA Ac 37 -1 -2 .0 PE 01 MA ti 60 7- 7- 00 RS 20 RE ve 54 20 20 N 40 09 09 FA JA 1 MN NE LY T DR UG AM 00 08 08 00 20 10 SO 32 TA Ac OX 14 -1 -2 .0 PE 01 MA ti IC 39 7- 7- 00 RS 18 RE ve IL 95 20 20 N LI 10 09 09 FA JA N 1 MN NE 87 LY T [address] UG TA BL ET SP 00 08 08 00 [address] Ac IR 60 -1 -2 .0 PE 00 ON ti ON 35 4- 7- 00 RS 30 E ve OL 76 20 20 DI AC 42 09 09 FA XI TO 1 MN E NE LY D 50 DR UG MG TA BL ET 00 08 08 00 [address] Ac 17 -1 -2 .0 PE 00 ON ti 22 4- 7- 00 RS 29 E ve 98 20 20 DI 57 09 09 FA XI 0 MN E LY D DR UG 00 07 07 00 30 3 SO 31 SC Ac 59 -1 -3 .0 PE 79 HU ti 10 5- 0- 00 RS 39 LS ve 34 20 20 TA 90 09 09 FA D 5 MN CA LY MP BE DR LL UG K 00 07 00 20 5 SO 31 TA Ac 59 -0 -1 .0 PE 70 MA ti 10 1- 6- 00 RS 07 RE ve 34 20 20 N 90 09 09 FA JA 5 MN NE LY T DR UG UT 00 06 07 01 12 4 SO 31 TA Ac ED 59 -1 -1 .0 PE 60 MA ti NI 15 7- 6- 00 RS 18 RE ve SO 44 20 20 N NE 20 09 09 FA JA 5 MN NE [address] UG TA BL ET NU 00 06 07 00 1. 28 SO 31 TA Ac VA 05 -1 -1 00 PE 60 MA ti RI 20 7- 6- 0 RS 21 RE ve NG 27 20 20 N 30 09 09 FA JA VA 3 MN NE GI LY T NA L DR INO UG NG BUNN 00 07 07 00 [address] Ac LF 60 -0 -1 .0 PE 70 ON ti AM 35 1- 6- 00 RS 06 E ve ET 78 20 20 DI HO 12 09 09 FA XI XA 8 MN E ZO LY D LE -T DR MP UG DS TA BL ET 00 07 00 30 3 SO 31 SC Ac 59 -0 -1 .0 PE 72 HU ti 10 3- 6- 00 RS 29 LS ve 34 20 20 TA 90 09 09 FA D 5 MN CA LY MP BE DR UG K UT 00 06 07 00 12 4 SO 31 TA Ac ED 59 -1 -0 .0 PE 60 MA ti NI 15 7- 2- 00 RS 18 RE ve SO 44 20 20 N NE 20 09 09 FA JA 5 MN NE [address] UG TA BL ET ME 57 06 07 00 12 30 SO 31 TA Ac TF 66 -1 -0 0. PE 60 MA ti OR 40 7- 2- 00 RS 23 RE ve MN 39 20 20 0 N N 75 09 09 FA JA HC 8 MN NE L LY T [address] MG UG TA BL ET RA 53 06 07 00 60 30 SO 31 TA Ac NI 74 -1 -0 .0 PE 60 MA ti TI 60 7- 2- 00 RS 22 RE ve DI 25 20 20 N NE 30 09 09 FA JA 5 MN NE 15 LY T [address] UG TA BL ET UT 00 06 07 00 6. 15 SO 31 TA Ac OV 08 -1 -0 70 PE 60 MA ti EN 51 7- 2- 0 RS 27 RE ve TI 13 20 20 N L 20 09 09 FA JA HF 1 MN NE A LY T 90 DR VILLALOBOS UG G IN [place] LE R 00 06 07 00 80 10 SO 31 TA Ac 78 -1 -0 .0 PE 60 MA ti 12 7- 2- 00 RS 17 RE ve 11 20 20 N 20 09 09 FA JA 1 MN NE LY T DR UG SP 00 06 07 00 30 30 SO 31 TA Ac IR 60 -1 -0 .0 PE 60 MA ti ON 35 7- 2- 00 RS 20 RE ve OL 76 20 20 N AC 42 09 09 FA JA TO 1 MN NE NE LY T 50 DR UG MG TA BL ET AD 00 06 07 00 60 30 SO 31 TA Ac VA 17 -1 -0 .0 PE 60 MA ti IR 30 7- 2- 00 RS 25 RE ve 69 20 20 N 25 60 09 09 FA JA 0- 0 MN NE [address] SK UG US NA 68 06 07 00 60 30 SO 31 TA Ac UT 46 -1 -0 .0 PE 60 MA ti OX 20 7- 2- 00 RS 19 RE ve EN 19 20 20 N 00 09 09 FA JA 50 5 MN NE [address] TA UG BL ET 00 06 07 00 30 30 SO 31 TA Ac 00 -1 -0 .0 PE 60 MA ti 60 7- 2- 00 RS 26 RE ve 11 20 20 N 73 09 09 FA JA 1 MN NE LY T DR UG FL 60 06 07 00 16 30 SO 31 TA Ac UT 50 -1 -0 .0 PE 60 MA ti IC 50 7- 2- 00 RS 24 RE ve 82 20 20 N ON 90 09 09 FA JA E 1 MN NE UT LY T OP DR 50 UG MC G SP RA Y NU 00 05 06 00 1. 28 SO 31 ME Ac VA 05 -3 -1 00 PE 47 ES ti RI 20 0- 8- 0 RS 08 E ve NG [address] 30 09 09 FA EP VA 1 MN HE GI LY N NA P L DR RI UG NG CE 00 05 06 00 56 14 SO 31 ME Ac PH 14 -3 -1 .0 PE 47 ES ti AL 39 0- 8- 00 RS 09 E ve EX [address] IN 70 09 09 FA EP 5 MN HE 50 LY N [address] UG CA PS UL E 00 05 05 00 3. 28 SO 31 TA Ac 06 -0 -2 00 PE 27 MA ti 21 4- 1- 0 RS 72 RE ve 92 20 20 N 01 09 09 FA JA 5 MN NE LY T DR UG AM 66 05 05 00 20 10 SO 31 TA Ac OX 68 -0 -2 .0 PE 27 MA ti -C 51 4- 1- 00 RS 70 RE ve LA 00 20 20 N V 10 09 09 FA JA 87 1 MN NE 5- LY T [address] MG UG TA BL ET MU 45 05 05 00 22 10 SO 31 TA Ac PI 80 -0 -2 .0 PE 27 MA ti RO 20 4- 1- 00 RS 71 RE ve CI 11 20 20 N N 22 09 09 FA JA 2% 2 MN NE LY T OI NT DR ME UG NT HY 00 05 05 00 30 10 SO [address] 16 -0 -2 .0 PE 27 MA ti OC 80 4- 1- 00 RS 71 RE ve OR 14 20 20 N TI 63 09 09 FA JA SO 0 MN NE NE LY T 2. DR 5% UG OI NT ME NT ZI 00 05 05 00 30 10 SO 31 TA Ac NC 16 -0 -2 .0 PE 27 MA ti 80 4- 1- 00 RS 71 RE ve OX 06 20 20 N ID 23 09 09 FA JA E 1 MN NE 20 LY T % OI DR NT UG ME NT NY 45 05 05 00 30 10 SO [address] 80 -0 -2 .0 PE 27 MA ti AT 20 4- 1- 00 RS 71 RE ve IN 04 20 20 N 81 09 09 FA JA 10 1 MN NE 0, LY T [address] UN UG IT S/ GM OI NT ME 57 05 05 00 12 30 SO 31 TA Ac TF 66 -0 -2 0. PE 27 MA ti OR 40 4- 1- 00 RS 73 RE ve MN 39 20 20 0 N N 75 09 09 FA JA HC 8 MN NE L LY T [address] MG UG TA BL ET UT 00 11 02 00 6. 15 SO 29 TA Ac OV 08 -1 -2 70 PE 80 MA ti EN 51 1- 6- 0 RS 32 RE ve TI 13 20 20 N L 20 08 09 FA JA HF 1 MN NE A LY T 90 DR MC UG G IN [place]ARK LE R 00 12 02 01 3. 28 SO 30 TA Ac 06 -3 -2 00 PE 22 MA ti 21 0- 6- 0 RS 50 RE ve 92 20 20 N 01 08 09 FA JA 5 MN NE LY T DR UG 00 12 01 00 3. 28 SO 30 TA Ac 06 -3 -1 00 PE 22 MA ti 21 0- 5- 0 RS 50 RE ve 92 20 20 N 01 08 09 FA JA 5 MN NE LY T DR UG FL 60 12 01 00 16 30 SO 30 TA Ac UT 50 -3 -1 .0 PE 22 MA ti IC 50 0- 5- 00 RS 48 RE ve 82 20 20 N ON 90 08 09 FA JA E 1 MN NE UT LY T OP DR 50 UG MC G SP RA Y 00 12 01 00 30 30 SO 30 TA Ac 17 -3 -1 .0 PE 22 MA ti 22 0- 5- 00 RS 49 RE ve 98 20 20 N 57 08 09 FA JA 0 MN NE LY T DR UG 66 01 01 00 30 15 SO 30 TA Ac 99 -0 -1 .0 PE 27 MA ti 20 6- 5- 00 RS 41 RE ve 23 20 20 N 56 09 09 FA JA 0 MN NE LY T DR UG AM 00 01 01 00 30 10 CA 65 Ac OX 78 -0 -1 .0 RL 16 LL ti IC 12 3- 5- 00 IS 25 AF ve IL 61 20 20 LE LO LI 30 [address] OS 50 UG IA 0 S MG IN M C CA PS UL E NE 24 01 01 00 10 7 CA 65 Ac OM 20 -0 -1 .0 RL 16 LL ti YC 80 3- 5- 00 IS 26 AF ve IN 63 20 20 LE LO -P 11 [address] OS YM UG IA YX S IN IN M -H C C EA R SO LN 00 11 11 00 12 30 SO 29 TA Ac 40 -1 -2 0. PE 80 MA ti 62 1- 0- 00 RS 41 RE ve 02 20 20 0 N 81 08 08 FA JA 0 MN NE LY T UG 00 08 11 01 3. 30 SO 29 TA Ac 06 -0 -2 00 PE 02 MA ti 21 7- 0- 0 RS 75 RE ve 92 20 20 N 01 08 08 FA JA 5 MN NE LY T DR UG 00 11 11 00 21 6 SO 29 TA Ac 55 -1 -2 .0 PE 80 MA ti 50 1- 0- 00 RS 37 RE ve 30 20 20 N 13 08 08 FA JA 8 MN NE LY T UG 64 08 11 01 60 30 SO 29 TA Ac 67 -0 -2 .0 PE 02 MA ti 90 7- 0- 00 RS 73 RE ve 90 20 20 N 60 08 08 FA JA 3 MN NE LY T DR UG CL 00 11 11 00 14 7 SO 29 TA Ac AR 78 -1 -2 .0 PE 80 MA ti IT 11 1- 0- 00 RS 39 RE ve HR 96 20 20 N OM 26 08 08 FA JA YC 0 MN NE IN LY T 50 DR 0 UG MG TA BL ET BE 68 11 11 00 40 13 SO 29 TA Ac NZ 38 -1 -2 .0 PE 80 MA ti ON 20 1- 0- 00 RS 35 RE ve AT 24 20 20 N AT 80 08 08 FA JA E 1 MN NE 20 LY T [address] UG CA PS UL E 00 08 11 01 30 30 SO 29 TA Ac 00 -0 -2 .0 PE 02 MA ti 60 7- 0- 00 RS 71 RE ve 11 20 20 N 73 08 08 FA JA 1 MN NE LY T DR UG UT 00 08 11 01 6. 30 SO 29 TA Ac OV 08 -0 -2 70 PE 02 MA ti EN 51 7- 0- 0 RS 74 RE ve TI 13 20 20 N L 20 08 08 FA JA HF 1 MN NE A LY T 90 DR MC UG G IN [place]ARK LE R AD 00 08 11 01 60 30 SO 29 TA Ac VA 17 -0 -2 .0 PE 02 MA ti IR 30 7- 0- 00 RS 72 RE ve 69 20 20 N 25 60 08 08 FA JA 0- 0 MN NE [address] SK UG US ET 60 11 11 00 16 4 SO 29 AL Ac OD 50 -0 -2 .0 PE 74 LE ti OL 50 5- 0- 00 RS 41 N ve AC 04 20 20 BR 10 08 08 FA AN 40 1 MN DO 0 LY N MG I DR TA UG BL ET PE 00 11 11 00 28 7 SO 29 AL Ac NI 78 -0 -2 .0 PE 74 LE ti CI 11 5- 0- 00 RS 40 N ve LL 65 20 20 BR IN 51 08 08 FA AN 0 MN DO VK LY N I 50 DR 0 UG MG TA BL ET AM 00 09 09 00 24 8 SO 29 No Ac OX 09 -0 -1 .0 PE 25 t ti -C 32 5- 1- 00 RS 87 Av ve LA 27 20 20 ai V 43 08 08 FA la 50 4 MN bl 0- LY e [address] MG UG TA BL ET 00 09 09 00 10 3 SO 29 No Ac 60 -0 -1 .0 PE 25 t ti 35 5- 1- 00 RS 88 Av ve 14 20 20 ai 23 08 08 FA la 2 MN bl LY e DR UG AD 00 08 08 00 60 30 SO 29 No Ac VA 17 -0 -1 .0 PE 02 t ti IR 30 7- 4- 00 RS 72 Av ve 69 20 20 ai 25 60 08 08 FA la 0- 0 MN bl [address] SK UG US 49 08 08 00 60 30 SO 29 No Ac 88 -0 -1 .0 PE 02 t ti 40 7- 4- 00 RS 73 Av ve 54 20 20 ai 40 08 08 FA la 5 MN bl LY e DR UG 63 08 08 00 60 30 SO 29 No Ac 30 -0 -1 .0 PE 02 t ti 40 7- 4- 00 RS 77 Av ve 65 20 20 ai 70 08 08 FA la 5 MN bl LY e DR UG ME 68 08 08 00 60 30 SO 29 No Ac TF 38 -0 -1 .0 PE 02 t ti OR 20 7- 4- 00 RS 76 Av ve MN 02 20 20 ai N 81 08 08 FA la HC 0 MN bl L LY e [address] MG UG TA BL ET 00 08 08 00 3. 30 SO 29 No Ac 06 -0 -1 00 PE 02 t ti 21 7- 4- 0 RS 75 Av ve 92 20 20 ai 01 08 08 FA la 5 MN bl LY e DR UG UT 00 08 08 00 6. 30 SO 29 No Ac OV 08 -0 -1 70 PE 02 t ti EN 51 7- 4- 0 RS 74 Av ve TI 13 20 20 ai L 20 08 08 FA la HF 1 MN bl A LY e 90 DR SMILEY G IN [place] LE R 00 08 08 00 30 30 SO 29 No Ac 00 -0 -1 .0 PE 02 t ti 60 7- 4- 00 RS 71 Av ve 11 20 20 ai 73 08 08 FA la 1 MN bl LY e DR BRIGIDO LO 00 06 07 00 20 6 SO 28 No Ac PE 37 -1 -0 .0 PE 65 t ti RA 82 7- 3- 00 RS 97 Av ve MN 10 20 20 ai DE 00 08 08 FA la 2 1 MN bl LY e MG DR CA UG PS UL E BA 00 06 07 00 30 15 SO [address] 02 -1 -0 .0 PE 61 t ti RO 91 0- 3- 00 RS 58 Av ve BA 52 20 20 ai N 72 08 08 FA la 2% 5 MN bl LY e CR EA DR [place] UG UT 00 06 07 00 15 5 SO 28 No Ac ED 59 -1 -0 .0 PE 61 t ti NI 15 0- 3- 00 RS 59 Av ve SO 44 20 20 ai NE 20 08 08 FA la 5 MN bl [address] UG TA BL ET UT 68 06 07 00 20 5 SO 28 No Ac OM 38 -1 -0 .0 PE 65 t ti ET 20 7- 3- 00 RS 96 Av ve CLARK 04 20 20 ai ZI 11 08 08 FA la NE 0 MN bl LY e 25 DR MG UG TA BL ET AM 00 05 06 00 30 10 SO 28 No Ac OX 09 -1 -0 .0 PE 44 t ti -C 32 9- 5- 00 RS 92 Av ve LA 27 20 20 ai V 43 08 08 FA la 50 4 MN bl 0- LY e [address] MG UG TA BL ET AC 00 05 06 00 12 3 SO 28 No Ac ET 40 -3 -0 .0 PE 53 t ti AM 60 0- 5- 00 RS 61 Av ve IN 48 20 20 ai OP 41 08 08 FA la HE 0 MN bl N- LY e CO D DR #3 UG TA BL ET 60 05 06 00 24 6 SO 28 No Ac 25 -1 -0 0. PE 44 t ti 80 9- 5- 00 RS 93 Av ve 23 20 20 0 ai 91 08 08 FA la 6 MN bl LY e DR UG ME 68 04 04 00 30 30 SO 28 No Ac TF 38 -1 -2 .0 PE 18 t ti OR 20 7- 4- 00 RS 97 Av ve MN 02 20 20 ai N 81 08 08 FA la HC 0 MN bl L LY e [address] MG UG TA BL ET UT 00 02 04 02 13 30 SO 27 No Ac OV 08 -0 -2 .4 PE 49 t ti EN 51 5- 4- 00 RS 85 Av ve TI 13 20 20 ai L 20 08 08 FA la HF 1 MN bl A LY e 90 DR MC UG G IN [place]ARK LE R CY 59 04 04 00 30 10 SO 28 No Ac CL 74 -1 -2 .0 PE 18 t ti OB 60 7- 4- 00 RS 98 Av ve EN 17 20 20 ai ZA 71 08 08 FA la UT 0 MN bl IN LY e E 10 DR UG MG TA BL ET 49 04 04 00 30 10 SO 28 No Ac 88 -1 -2 .0 PE 18 t ti 40 7- 4- 00 RS 99 Av ve 77 20 20 ai 90 08 08 FA la 5 MN bl LY e DR UG 53 03 04 00 80 8 SO 27 No Ac 01 -1 -1 .0 PE 84 t ti 40 0- 7- 00 RS 45 Av ve 54 20 20 ai 86 08 08 FA la 7 MN bl LY e DR FOFANA 00 03 04 00 21 6 SO 27 No Ac 55 -1 -1 .0 PE 84 t ti 50 0- 7- 00 RS 46 Av ve 30 20 20 ai 13 08 08 FA la 8 MN bl LY e DR FOFANA AD 00 02 04 01 60 30 SO 27 No Ac VA 17 -0 -1 .0 PE 49 t ti IR 30 5- 7- 00 RS 87 Av ve 69 20 20 ai 25 60 08 08 FA la 0- 0 MN bl [address] MCKENZIE FOFANA US 00 03 04 00 1. 1 SO 27 No Ac 59 -1 -1 00 PE 88 t ti 10 3- 7- 0 RS 49 Av ve 36 20 20 ai 50 08 08 FA la 1 MN bl LY e DR FOFANA 49 03 04 00 30 7 SO 27 No Ac 88 -1 -1 .0 PE 89 t ti 40 4- 7- 00 RS 55 Av ve 77 20 20 ai 90 08 08 FA la 5 MN bl LY e DR FOFANA 00 02 04 01 30 30 SO 27 No Ac 00 -0 -1 .0 PE 49 t ti 60 5- 7- 00 RS 86 Av ve 11 20 20 ai 73 08 08 FA la 1 MN bl LY e DR FOFANA UT 00 02 04 01 13 30 SO 27 No Ac OV 08 -0 -1 .4 PE 49 t ti EN 51 5- 7- 00 RS 85 Av ve TI 13 20 20 ai L 20 08 08 FA la HF 1 MN bl A LY e 90 DR SMILEY G IN [place] LE R 00 03 04 00 24 6 SO 27 No Ac 59 -1 -1 .0 PE 89 t ti 10 4- 7- 00 RS 54 Av ve 54 20 20 ai 00 08 08 FA la 5 MN bl LY e DR FOFANA 63 03 04 00 21 7 SO 27 No Ac 30 -1 -1 .0 PE 89 t ti 40 4- 7- 00 RS 56 Av ve 65 20 20 ai 50 08 08 FA la 5 MN bl LY e DR FOFANA 00 01 04 01 3. 28 SO 27 No Ac 06 -2 -1 00 PE 41 t ti 21 8- 7- 0 RS 25 Av ve 92 20 20 ai 01 08 08 FA la 5 MN bl LY e DR FOFANA 63 03 04 00 40 10 SO 27 No Ac 30 -1 -1 .0 PE 84 t ti 40 0- 7- 00 RS 47 Av ve 72 20 20 ai 56 08 08 FA la 0 MN bl LY e DR FOFANA 53 02 03 00 12 12 SO 27 No Ac 01 -0 -2 0. PE 49 t ti 40 5- 6- 00 RS 84 Av ve 54 20 20 0 ai 86 08 08 FA la 7 MN bl LY e DR FOFANA UT 00 02 03 00 13 30 SO 27 No Ac OV 08 -0 -2 .4 PE 49 t ti EN 51 5- 6- 00 RS 85 Av ve TI 13 20 20 ai L 20 08 08 FA la HF 1 MN bl A LY e 90 DR SMILEY G IN [place] LE R 00 01 03 00 3. 28 SO 27 No Ac 06 -2 -2 00 PE 41 t ti 21 8- 6- 0 RS 25 Av ve 92 20 20 ai 01 08 08 FA la 5 MN bl LY e DR FOFANA AD 00 02 03 00 60 30 SO 27 No Ac VA 17 -0 -2 .0 PE 49 t ti IR 30 5- 6- 00 RS 87 Av ve 69 20 20 ai 25 60 08 08 FA la 0- 0 MN bl [address] MCKENZIE FOFANA US 00 02 03 00 30 30 SO 27 No Ac 00 -0 -2 .0 PE 49 t ti 60 5- 6- 00 RS 86 Av ve 11 20 20 ai 73 08 08 FA la 1 MN bl LY e DR FOFANA Results Labs Lab Lab Date Result Refere Interp Status Commen Order Detail nces retati t Range on CHLAMYDIA AND GONORRHEA TESTING (12-23-2014 13:45) Chlamyd NEGATIV complet ia 015 E ed trachom 13:45 atis rRNA [Presen ce] in Unspeci fied specime n by Probe & target amplifi cation method Neisser NEGATIV complet ia 015 E ed gonorrh 13:45 oeae rRNA [Presen ce] in Unspeci fied specime n by Probe & target amplifi cation method CHLAMYDIA AND GONORRHEA TESTING (12-23-2014 13:45) COLLECT PT/M F complet OR 015 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 WHITE, complet TY 015 NON-HIS ed 13:45 PANIC KIT complet EXPIRAT 015 5 ed ION 13:45 DATE SYMPTOM NO complet S 015 ed 13:45 REASON REVISIT complet FOR 015 /ANNUAL ed REQUEST 13:45 FAMILY PLANNIN G VISIT SPECIME URINE complet N 015 ed SOURCE 13:45 PREGNAN NO complet T 015 ed 13:45 CHART NA complet NUMBER 015 ed 13:45 Chlamyd Pending complet ia 015 ed trachom 13:45 atis rRNA [Presen ce] in Unspeci fied specime n by Probe & target amplifi cation method Neisser Pending complet ia 015 ed gonorrh 13:45 oeae rRNA [Presen ce] in Unspeci fied specime n by Probe & target amplifi cation method CHLAMYDIA AND GONORRHEA TESTING (11-27-2012 10:00) [place] NEGATIV complet ia 013 E ed trachom 10:00 atis rRNA [Presen ce] in Unspeci fied specime n by Probe & target amplifi cation method Neisser NEGATIV complet ia 013 E ed gonorrh 10:00 oeae rRNA [Presen ce] in Unspeci fied specime n by Probe & target amplifi cation method CHLAMYDIA AND GONORRHEA TESTING (11-27-2012 10:00) COLLECT RN complet OR 013 ed 10:00 ETHNICI WHITE, complet TY 013 NON-HIS ed 10:00 PANIC KIT 2012-11 complet EXPIRAT 013 -31 ed ION 10:00 DATE SYMPTOM NO complet S 013 ed 10:00 REASON REVISIT complet FOR 013 /ANNUAL ed REQUEST 10:00 FAMILY PLANNIN G VISIT SPECIME URINE complet N 013 ed SOURCE 10:00 PREGNAN NO complet T 013 ed 10:00 CHART 400-45- complet NUMBER 013 1411 ed 10:00 Chlamyd Pending complet ia 013 ed trachom 10:00 atis rRNA [Presen ce] in Unspeci fied specime n by Probe & target amplifi cation method Neisser Pending complet ia 013 ed gonorrh 10:00 oeae rRNA [Presen ce] in Unspeci fied specime n by Probe & target amplifi cation method CHLAMYDIA AND GONORRHEA TESTING (08-15-2012 11:30) [place] NEGATIV complet ia 013 E ed trachom 11:30 atis rRNA [Presen ce] in Unspeci fied specime n by Probe & target amplifi cation method Neisser NEGATIV complet ia 013 E ed gonorrh 11:30 oeae rRNA [Presen ce] in Unspeci fied specime n by Probe & target amplifi cation method CHLAMYDIA AND GONORRHEA TESTING (08-15-2012 11:30) 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 complet OR 013 ed 11:30 ETHNICI WHITE, complet TY 013 NON-HIS ed 11:30 PANIC KIT 2012-11 complet EXPIRAT ed ION 11:30 DATE SYMPTOM NO complet S 013 ed 11:30 REASON REVISIT complet FOR 013 /ANNUAL ed REQUEST 11:30 FAMILY PLANNIN G VISIT SPECIME FEMALE complet N 013 ENDOCER ed SOURCE 11:30 VICAL PREGNAN NO complet T 013 ed 11:30 CHART 400-45- complet NUMBER 013 1411 ed 11:30 [place]lamyd Pending complet ia 013 ed trachom 11:30 atis rRNA [Presen ce] in Unspeci fied specime n by Probe & target amplifi cation method Neisser Pending complet ia 013 ed gonorrh 11:30 oeae rRNA [Presen ce] in Unspeci fied specime n by Probe & target amplifi cation method CHLAMYDIA AND GONORRHEA TESTING (07-29-2011 15:27) [place]yd NEGATIV complet ia 012 E ed trachom 15:27 atis rRNA [Presen ce] in Unspeci fied specime n by Probe & target amplifi cation method Neisser NEGATIV complet ia 012 E ed gonorrh 15:27 oeae rRNA [Presen ce] in Unspeci fied specime n by Probe & target amplifi cation method CHLAMYDIA AND GONORRHEA TESTING (07-29-2011 15:27) COLLECT GENPROB complet OR 012 E ed 15:27 ETHNICI WHITE, complet TY 012 NON-HIS ed 15:27 PANIC KIT 2012-01 complet EXPIRAT 012 -31 ed ION 15:27 DATE SYMPTOM NO complet S 012 ed 15:27 REASON INITIAL complet FOR 012 FAMILY ed REQUEST 15:27 PLANGALO G VISIT SPECIME FEMALE complet N 012 ENDOCER ed SOURCE 15:27 VICAL PREGNAN NO complet T 012 ed 15:27 CHART [id number] complet NUMBER 012 11 ed 15:27 Chlamyd Pending complet ia 012 ed trachom 15:27 atis rRNA [Presen ce] in Unspeci fied specime n by Probe & target amplifi cation method Neisser Pending complet ia 012 ed gonorrh 15:27 oeae rRNA [Presen ce] in Unspeci fied specime n by Probe & target amplifi cation method Procedures Procedure DOS Code Location Performer Comment LOW 741 MARYANN WOLF CERVICAL 4 [facility] SECTION LAPAROSCO 5123 MARYANN WOLF PIC 9 [facility]LE[facility]ST [facility] ECTOMY EXCISION 8621 MARYANN WOLF OF 9 [facility] PILONIDAL [facility] CYST OR SINUS Encounters Encounter Start End Date Code Location Performer Type [facility] KATERINE - 7 7 [facility] MARYANN - 6 6 [facility] JONNY - 6 6 [facility] JONNY - 6 6 [facility] MEAWVIE - 6 6 [facility] MARYANN - 5 5 [facility] KATERINE - 5 5 [facility] KATERINE - 5 5 [facility] KATERINE [facility] 5 5 [facility] MARYANN - 4 4 [facility] CAIT - [address] [facility] CAIT - [address] [facility] MARYANN - 0 0 [facility] MARYANN - 0 0 [facility] UNIVERSIT - [address] [facility] CAIT - [address] [facility] CAIT - 0 0 [facility] UNIVERSIT - 0 0 [facility] CAIT - 0 0 [facility] CAIT - 0 0 [facility] CAIT - 0 0 [facility] CAIT - 0 0 [facility] CAIT [facility] 0 0 [facility] CAIT - 0 0 [facility] MARYANN - 9 9 [facility] MARYANN [facility] 9 9 [facility] [place] - 9 9 [facility] CAIT - [address] [facility] [place] - 9 9 [facility] CAIT [facility] 9 9 [facility] MARYANN - 9 9 [facility] MARYANN - 9 9 [facility] CAIT - 9 9 [facility] CAIT - 8 8 [facility]
--- OUTSIDE RECORDS SUMMARY | 2017-06-08 18:51 | External Medical Summary Rpt | CCD ---
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 TE 00 11 11 FA XI 1 5 ND E LY D GM DR TA UG BL ET VE 68 04 04 0 [address] Ac NL 38 -0 -0 0. PE 99 ON ti AF 20 RS 05 E ve AX 02 20 20 0 DI IN 10 11 11 FA XI E 1 ND E HC LY D L 75 DR UG MG TA BL ET AZ 00 04 04 2 6. [address] Ac OV 08 -0 -0 70 PE 99 ON ti EN 51 1- 1- 0 RS 00 E ve TI 13 20 20 DI L 20 11 11 FA XI HF 1 ND E A LY D 90 DR VILLALOBOS UG G IN CLARK LE R NA 68 03 03 1 60 30 SO 36 CL Ac AZ 46 -0 -0 .0 PE 75 AR ti OX 20 8- 8- 00 RS 13 KE ve EN 19 20 20 00 11 11 FA DE 50 5 ND RE 0 LY K MG J DR TA UG BL ET VE 68 01 02 2 60 30 SO 36 TA Ac NL 38 -0 -2 .0 PE 16 MA ti AF 20 4- 1- 00 RS 96 RE ve AX 02 20 20 N IN 10 11 11 FA JA E 1 ND NE HC LY T L 75 DR UG MG TA BL ET MA 00 12 02 2 9. 30 SO 35 TA Ac XA 00 -0 -2 00 PE 93 MA ti LT 60 3- 1- 0 RS 98 RE ve 26 20 20 N 10 71 10 11 FA JA 8 ND NE MG LY T TA DR BL UG ET AZ 00 12 02 2 6. [address] Ac OV 08 -0 -2 70 PE 93 ON ti EN 51 3- 1- 0 RS 93 E ve TI 13 20 20 DI L 20 10 11 FA XI HF 1 ND E A LY D 90 DR MC UG G IN CLARK LE R TA 00 02 02 0 [address] Ac ND 00 -0 -0 .0 PE 46 ON ti FL 40 7- 7- 00 RS 24 E ve U 80 20 20 DI 75 08 11 11 FA XI 5 ND E MG LY D CA DR PS UG UL E ME 00 02 02 0 [address] Ac TH 60 -0 -0 .0 PE 46 ON ti YL 34 7- 7- 00 RS 25 E ve AZ 59 20 20 DI ED 31 11 11 FA XI NI 5 ND E SO LY D LO NE DR 4 UG MG DO SE PK 54 02 02 0 [address] Ac 83 -0 -0 0. PE 46 ON ti 80 7- 7- 00 RS 26 E ve 54 20 20 0 DI 48 11 11 FA XI 0 ND E LY D DR UG AZ 00 02 02 0 6. [address] Ac IT 78 -0 -0 00 PE 46 ON ti HR 11 7- 7- 0 RS 27 E ve OM 49 20 20 DI YC 66 11 11 FA XI IN 8 ND E LY D [address] MG UG TA BL ET AZ 00 12 01 2 6. [address] Ac OV 08 -0 -2 70 PE 93 ON ti EN 51 3- 4- 0 RS 93 E ve TI 13 20 20 DI L 20 10 11 FA XI HF 1 ND E A LY D 90 DR UG G IN CLARK LE R 49 10 01 2 30 30 SO 35 TA Ac 88 -2 -2 .0 PE 57 MA ti 40 7- 4- 00 RS 77 RE ve 28 20 20 N 20 10 11 FA JA 1 ND NE LY T DR UG 00 10 01 2 60 5 SO 35 TA Ac 09 -2 -2 .0 PE 51 MA ti 50 0- 4- 00 RS 66 RE ve 24 20 20 N 00 10 11 FA JA 1 ND NE LY T DR UG AZ 37 10 01 2 28 28 SO 35 TA Ac IL 00 -2 -2 .0 PE 51 MA ti OS 00 0- 4- 00 RS 68 RE ve EC 45 20 20 N 50 10 11 FA JA OT 4 ND NE C LY T [address] UG MG TA BL ET 00 12 01 2 9. 30 SO 35 TA Ac 00 -0 -2 00 PE 93 MA ti 60 3- 4- 0 RS 98 RE ve 26 20 20 N 71 10 11 FA JA 2 ND NE LY T DR UG 59 07 01 5 1. 90 SO 34 TA Ac 76 -2 -1 00 PE 80 MA ti 24 8- 9- 0 RS 67 RE ve 53 20 20 N 80 10 11 FA JA 1 ND NE LY T DR UG FL 00 01 01 0 3. 3 SO 36 TA Ac UC 17 -0 -0 00 PE 16 MA ti ON 25 4- 4- 0 RS 95 RE ve AZ 41 20 20 N OL 21 11 11 FA JA E 1 ND NE 15 LY [address] UG TA BL ET VE 68 01 01 2 60 30 SO 36 TA Ac NL 38 -0 -0 .0 PE 16 MA ti AF 20 4- 4- 00 RS 96 RE ve AX 02 20 20 N IN 10 11 11 FA JA E 1 ND NE HC LY T L 75 DR UG MG TA BL ET PA 68 10 12 2 30 30 SO 35 TA Ac RO 38 -2 -0 .0 PE 51 MA ti XE 20 0- 3- 00 RS 67 RE ve TI 09 20 20 N NE 80 10 10 FA JA 6 ND NE HC LY T L 20 DR UG MG TA BL ET AZ 37 10 12 2 28 28 SO 35 TA Ac IL 00 -2 -0 .0 PE 51 MA ti OS 00 0- 3- 00 RS 68 RE ve EC 45 20 20 N 50 10 10 FA JA OT 4 ND NE C LY T [address] UG MG TA BL ET 49 10 12 2 30 30 SO 35 TA Ac 88 -2 -0 .0 PE 57 MA ti 40 7- 3- 00 RS 77 RE ve 28 20 20 N 20 10 10 FA JA 1 ND NE LY T DR UG 00 12 12 2 9. 30 SO 35 TA Ac 00 -0 -0 00 PE 93 MA ti 60 3- 3- 0 RS 98 RE ve 26 20 20 N 71 10 10 FA JA 2 ND NE LY T DR UG 00 01 12 5 30 30 SO 33 TA Ac 00 -2 -0 .0 PE 35 MA ti 60 0- 3- 00 RS 44 RE ve 11 20 20 N 73 10 10 FA JA 1 ND NE LY T DR UG 00 10 12 2 60 5 SO 35 TA Ac 09 -2 -0 .0 PE 51 MA ti 50 0- 3- 00 RS 66 RE ve 24 20 20 N 00 10 10 FA JA 1 ND NE LY T DR UG AZ 00 12 12 2 6. [address] Ac OV 08 -0 -0 70 PE 93 ON ti EN 51 3- 3- 0 RS 93 E ve TI 13 20 20 DI L 20 10 10 FA XI HF 1 ND E A LY D 90 DR MC UG G IN CLARK LE R BUNN 00 12 12 2 [address] Ac CR 59 -0 -0 0. PE 94 ON ti AL 10 3- 3- 00 RS 00 E ve FA 78 20 20 0 DI TE 00 10 10 FA XI 1 5 ND E LY D GM DR TA UG BL ET AZ 00 10 11 0 6. 15 SO 35 TA Ac OV 08 -2 -1 70 PE 57 MA ti EN 51 7- 0- 0 RS 79 RE ve TI 13 20 20 N L 20 10 10 FA JA HF 1 ND NE A LY T 90 DR MC UG G IN CLARK LE R AZ 00 10 10 0 20 8 SO 35 TA Ac ED 59 -2 -2 .0 PE 57 MA ti NI 15 7- 7- 00 RS 76 RE ve SO 44 20 20 N NE 20 10 10 FA JA 5 ND NE [address] UG TA BL ET 49 10 10 2 30 30 SO 35 TA Ac 88 -2 -2 .0 PE 57 MA ti 40 7- 7- 00 RS 77 RE ve 28 20 20 N 20 10 10 FA JA 1 ND NE LY T DR UG 00 10 10 0 12 30 SO 35 TA Ac 00 -2 -2 .0 PE 57 MA ti 60 7- 7- 00 RS 78 RE ve 26 20 20 N 71 10 10 FA JA 2 ND NE LY T DR UG CL 00 10 10 0 20 10 SO 35 TA Ac AR 78 -2 -2 .0 PE 57 MA ti IT 11 7- 7- 00 RS 75 RE ve HR 96 20 20 N OM 26 10 10 FA JA YC 0 ND NE IN LY T 50 DR 0 UG MG TA BL ET AM 00 10 10 0 30 10 SO 35 TA Ac OX 78 -2 -2 .0 PE 55 MA ti IC 12 5- 5- 00 RS 57 RE ve IL 61 20 20 N LI 30 10 10 FA JA N 5 ND NE [address] L[address] UG CA PS UL E 60 10 10 0 24 6 SO 35 TA Ac 25 -2 -2 0. PE 55 MA ti 80 5- 5- 00 RS 58 RE ve 23 20 20 0 N 91 10 10 FA JA 6 ND NE LY T DR UG 00 10 10 2 60 5 SO 35 TA Ac 09 -2 -2 .0 PE 51 MA ti 50 0- 0- 00 RS 66 RE ve 24 20 20 N 00 10 10 FA JA 1 ND NE LY T DR UG PA 68 10 10 2 30 30 SO 35 TA Ac RO 38 -2 -2 .0 PE 51 MA ti XE 20 0- 0- 00 RS 67 RE ve TI 09 20 20 N NE 80 10 10 FA JA 6 ND NE HC LY T L 20 DR UG MG TA BL ET AZ 37 10 10 2 28 28 SO 35 TA Ac IL 00 -2 -2 .0 PE 51 MA ti OS 00 0- 0- 00 RS 68 RE ve EC 45 20 20 N 50 10 10 FA JA OT 4 ND NE C LY T [address] UG MG TA BL ET 59 07 10 5 1. 90 SO 34 TA Ac 76 -2 -1 00 PE 80 MA ti 24 8- 9- 0 RS 67 RE ve 53 20 20 N 80 10 10 FA JA 1 ND NE LY T DR UG VE 00 01 10 5 18 30 SO 33 TA Ac NT 17 -2 -1 .0 PE 35 MA ti OL 30 0- 1- 00 RS 42 RE ve IN 68 20 20 N 22 10 10 FA JA HF 0 ND NE A LY T 90 DR MC UG G IN CLARK LE R 00 09 09 0 24 4 SO 35 WO Ac 59 -2 -2 .0 PE 25 NG ti 10 1- 1- 00 RS 65 , ve 34 20 20 MD 90 10 10 FA 5 ND LE LY SL EY DR BRIGIDO VE 00 01 09 5 18 30 SO 33 TA Ac NT 17 -2 -1 .0 PE 35 MA ti OL 30 0- 0- 00 RS 42 RE ve IN 68 20 20 N 22 10 10 FA JA HF 0 ND NE A LY T 90 DR SMILEY G IN CLARK LE R OX 00 09 09 0 20 3 SO 35 WO Ac YC 40 -0 -0 .0 PE 15 NG ti OD 60 9- 9- 00 RS 33 , ve ON 51 20 20 MD E- 20 10 10 FA AC 5 ND LE ET LY SL AM EY IN DR OP UG HE N 5- 32 5 CE 68 09 09 0 20 10 SO 35 WO Ac FA 18 -0 -0 .0 PE [address] 00 00 RS 34 , ve OX 18 20 20 MD IL 00 10 10 FA 1 ND LE 50 LY SL 0 EY MG [...] 26 10 10 FA JA N 9 ND NE BUNN LY T CC DR 10 UG 0 MG TA BL ET 00 06 08 2 60 30 SO 34 TA Ac 17 -1 -0 .0 PE 48 MA ti 25 1- 6- 00 RS 85 RE ve 66 20 20 N 56 10 10 FA JA 0 ND NE LY T DR BRIGIDO VE 00 01 08 5 18 30 SO 33 TA Ac NT 17 -2 -0 .0 PE 35 MA ti OL 30 0- 4- 00 RS 42 RE ve IN 68 20 20 N 22 10 10 FA JA HF 0 ND NE A LY T 90 DR SMILEY G IN CLARK LE R 59 07 07 5 1. 90 SO 34 TA Ac 76 -2 -2 00 PE 80 MA ti 24 8- 8- 0 RS 67 RE ve 53 20 20 N 80 10 10 FA JA 1 ND NE LY T DR UG VE 00 01 07 5 18 30 SO 33 TA Ac NT 17 -2 -0 .0 PE 35 MA ti OL 30 0- 7- 00 RS 42 RE ve IN 68 20 20 N 22 10 10 FA JA HF 0 ND NE A LY T 90 DR SMILEY G IN CLARK LE R CL 00 01 07 5 60 30 SO 33 TA Ac ON 37 -2 -0 .0 PE 35 MA ti ID 80 0- 6- 00 RS 40 RE ve IN 15 20 20 N E 21 10 10 FA JA HC 0 ND NE L LY T 0. 1 DR MG UG TA BL ET 00 06 06 2 60 30 SO 34 TA Ac 17 -1 -1 .0 PE 48 MA ti 25 1- 1- 00 RS 85 RE ve 66 20 20 N 56 10 10 FA JA 0 ND NE LY T DR UG VE 00 01 06 5 18 30 SO 33 TA Ac NT 17 -2 -0 .0 PE 35 MA ti OL 30 0- 8- 00 RS 42 RE ve IN 68 20 20 N 22 10 10 FA JA HF 0 ND NE A LY T 90 DR SMILEY G IN CLARK LE R 00 01 06 5 30 30 SO 33 TA Ac 00 -2 -0 .0 PE 35 MA ti 60 0- 8- 00 RS 44 RE ve 11 20 20 N 73 10 10 FA JA 1 ND NE LY T DR UG TO 68 03 06 2 90 30 SO 33 TA Ac PI 46 -2 -0 .0 PE 90 MA ti RA 20 9- 8- 00 RS 64 RE ve MA 15 20 20 N TE 36 10 10 FA JA 0 ND NE [address] UG TA BL ET 00 04 06 2 60 30 SO 34 TA Ac 11 -2 -0 .0 PE 08 MA ti 57 0- 8- 00 RS 13 RE ve 01 20 20 N 81 10 10 FA JA 3 ND NE LY T DR UG CL 00 01 05 5 60 30 SO 33 TA Ac ON 37 -2 -2 .0 PE 35 MA ti ID 80 0- 6- 00 RS 40 RE ve IN 15 20 20 N E 21 10 10 FA JA HC 0 ND NE L LY T 0. 1 DR MG UG TA BL ET CL 00 05 05 0 60 30 SO 34 TA Ac AR 55 -2 -2 .0 PE 33 MA ti AV 51 0- 0- 00 RS 40 RE ve IS 05 20 20 N 78 10 10 FA JA 40 6 ND NE LY T MG DR CA UG PS UL E CL 00 05 05 0 45 30 SO 34 TA Ac ON 18 -1 -1 .0 PE 32 MA ti AZ 50 9- 9- 00 RS 33 RE ve EP 06 20 20 N AM 31 10 10 FA JA 0 ND NE 0. LY T [address] UG TA BL ET 59 05 05 0 1. 90 SO 34 TA Ac 76 -1 -1 00 PE 25 MA ti 24 1- 1- 0 RS 11 RE ve 53 20 20 N 80 10 10 FA JA 1 ND NE LY T DR UG AL 24 05 05 0 24 8 SO 34 Ac LE 38 -0 -0 .0 PE 22 LL ti RG 50 7- 7- 00 RS 85 AF ve Y 46 20 20 LO 25 26 10 10 FA R 2 ND OS MG LY IA S CA DR M PS UG UL E TO 68 03 05 2 90 30 SO 33 TA Ac PI 46 -2 -0 .0 PE 90 MA ti RA 20 9- 6- 00 RS 64 RE ve MA 15 20 20 N TE 36 10 10 FA JA 0 ND NE [address] UG TA BL ET TR 60 05 05 0 60 5 SO 34 TA Ac IA 43 -0 -0 .0 PE 21 MA ti MC 20 6- 6- 00 RS 44 RE ve IN 56 20 20 N OL 16 10 10 FA JA ON 0 ND NE E LY T 0. 1% DR UG LO TI ON 50 05 05 0 30 10 SO 34 TA Ac 11 -0 -0 .0 PE 20 MA ti 10 5- 5- 00 RS 65 RE ve 30 20 20 N 80 10 10 FA JA 2 ND NE LY T DR UG AZ 00 05 05 0 12 6 SO 34 TA Ac ED 59 -0 -0 .0 PE 20 MA ti NI 15 5- 5- 00 RS 66 RE ve SO 44 20 20 N NE 20 10 10 FA JA 5 ND NE [address] UG TA BL ET VE 00 01 04 5 18 30 SO 33 TA Ac NT 17 -2 -2 .0 PE 35 MA ti OL 30 0- 8- 00 RS 42 RE ve IN 68 20 20 N 22 10 10 FA JA HF 0 ND NE A LY T 90 DR MC UG G IN CLARK LE R BUNN 62 04 04 2 9. 30 SO 34 TA Ac MA 75 -2 -2 00 PE 12 MA ti TR 60 6- 6- 0 RS 27 RE ve IP 52 20 20 N TA 26 10 10 FA JA N 9 ND NE BUNN LY T CC DR 10 UG 0 MG TA BL ET 00 04 04 2 60 30 SO 34 TA Ac 11 -2 -2 .0 PE 08 MA ti 57 0- 0- 00 RS 13 RE ve 01 20 20 N 81 10 10 FA JA 3 ND NE LY T DR UG IB 55 04 04 0 60 15 SO 34 TA Ac UP 11 -2 -2 .0 PE 08 MA ti RO 10 0- 0- 00 RS 14 RE ve FE 68 20 20 N N 40 10 10 FA JA 80 5 ND NE [address] TA UG BL ET CL 00 04 04 0 60 30 SO 34 TA Ac AR 55 -2 -2 .0 PE 08 MA ti AV 51 0- 0- 00 RS 16 RE ve IS 05 20 20 N 78 10 10 FA JA 40 6 ND NE LY T MG DR CA UG PS UL E TO 68 03 03 2 90 30 SO 33 TA Ac PI 46 -2 -2 .0 PE 90 MA ti RA 20 9 9- 00 RS 64 RE ve MA 15 20 20 N TE 36 10 10 FA JA 0 ND NE [address] UG TA BL ET DO 00 03 03 0 28 14 SO 33 TA Ac XY 14 -2 -2 .0 PE 90 MA ti CY 33 9- 9- 00 RS 65 RE ve CL 14 20 20 N IN 20 10 10 FA JA E 5 ND NE HY LY T CL AT DR E UG 10 0 MG CA P AZ 10 03 03 0 40 7 SO 33 TA Ac OM 70 -2 -2 .0 PE 90 MA ti ET 20 9 9 00 RS 66 RE ve CLARK 00 20 20 N ZI 31 10 10 FA JA NE 0 ND NE LY T 25 DR MG UG TA BL ET RA 53 01 03 5 60 30 SO 33 TA Ac NI 74 -2 -0 .0 PE 35 MA ti TI 60 0- 4- 00 RS 43 RE ve DI 25 20 20 N NE 30 10 10 FA JA 5 ND NE 15 LY [address] UG TA BL ET 00 01 03 5 30 30 SO 33 TA Ac 00 -2 -0 .0 PE 35 MA ti 60 0- 4- 00 RS 44 RE ve 11 20 20 N 73 10 10 FA JA 1 ND NE LY T DR UG CL 00 01 03 5 60 30 SO 33 TA Ac ON 37 -2 -0 .0 PE 35 MA ti ID 80 0- 4- 00 RS 40 RE ve IN 15 20 20 N E 21 10 10 FA JA HC 0 ND NE L LY T 0. 1 DR MG UG TA BL ET VE 00 01 03 5 18 30 SO 33 TA Ac NT 17 -2 -0 .0 PE 35 MA ti OL 30 0- 4- 00 RS 42 RE ve IN 68 20 20 N 22 10 10 FA JA HF 0 ND NE A LY T 90 DR MC UG G IN CLARK LE R DE 60 01 02 00 [address] Ac XA 43 -2 -1 .0 PE 43 ON ti ME 20 9- 1- 00 RS 17 E ve TH 46 20 20 DI 60 10 10 FA XI ON 8 ND E E LY D 0. 5 DR MG UG /5 ML EL X BA 00 02 00 [address] Ac NO 90 -2 -1 0. PE 43 ON ti PH 45 9- 1- 00 RS 17 E ve EN 17 20 20 0 DI 41 10 10 FA XI 12 6 ND E .[address] /5 UG ML SO CHAVEZ TI ON NY 00 02 00 [address] 60 -2 -1 .0 PE 43 ON ti AT 31 9- 1- 00 RS 17 E ve IN 48 20 20 DI 15 10 10 FA XI 10 8 ND E 0, LY D [address] UN UG IT /M L BUNN SP CH 00 02 00 [address] Ac ER 60 -2 -1 8. PE 43 ON ti AT 31 9- 1- 00 RS 16 E ve US 07 20 20 0 DI SI 55 10 10 FA XI N 4 ND E AC LY D SY DR RU UG P AZ 64 01 02 00 6. [address] Ac IT 67 -2 -1 00 PE 43 ON ti HR 90 9- 1- 0 RS 15 E ve OM 96 20 20 DI YC 10 10 10 FA XI IN 5 ND E LY D [address] MG UG TA BL ET TI 00 07 24 00 40 14 SO 33 TA Ac ZA 18 -1 -2 .0 PE 30 MA ti NI 50 4- 8- 00 RS 99 RE ve DI 03 20 20 N NE 45 10 10 FA JA 1 ND NE HC LY T L 2 DR MG UG TA BL ET NA 68 01 01 00 60 30 SO 33 TA Ac AZ 46 -1 -2 .0 PE 30 MA ti OX 20 4- 8- 00 RS 98 RE ve EN 19 20 20 N 00 10 10 FA JA 50 5 ND NE [address] TA UG BL ET CL 00 01 00 60 30 SO 33 TA Ac ON 37 -2 -2 .0 PE 35 MA ti ID 80 0- 8- 00 RS 40 RE ve IN 15 20 20 N E 21 10 10 FA JA HC 0 ND NE L LY T 0. 1 DR MG UG TA BL ET RA 53 01 00 60 30 SO 33 TA Ac NI 74 -2 -2 .0 PE 35 MA ti TI 60 0- 8- 00 RS 43 RE ve DI 25 20 20 N NE 30 10 10 FA JA 5 ND NE 15 LY [address] UG TA BL ET CO 50 01 00 30 30 SO 33 TA Ac NC 45 -2 -2 .0 PE 35 MA ti ER 80 0- 8- 00 RS 41 RE ve TA 58 20 20 N 60 10 10 FA JA ER 1 ND NE LY T 36 DR MG UG TA BL ET TO 68 01 00 70 28 SO 33 TA Ac PI 46 -1 -2 .0 PE 30 MA ti RA 20 4- 8- 00 RS 97 RE ve MA 10 20 20 N TE 86 10 10 FA JA 0 ND NE [address] UG TA BL ET VE 00 07 24 00 8. 15 SO 33 TA Ac NT 17 -2 -2 00 PE 35 MA ti OL 30 0- 8- 0 RS 42 RE ve IN 68 20 20 N 22 10 10 FA JA HF 4 ND NE A LY T 90 DR MC UG G IN CLARK LE R 00 01 01 00 30 30 SO 33 TA Ac 00 -2 -2 .0 PE 35 MA ti 60 0- 8- 00 RS 44 RE ve 11 20 20 N 73 10 10 FA JA 1 ND NE LY T DR UG AZ 00 10 01 00 6. 15 SO 32 TA Ac OV 08 -0 -1 70 PE 44 MA ti EN 51 5- 4- 0 RS 26 RE ve TI 13 20 20 N L 20 09 10 FA JA HF 1 ND NE A LY T 90 DR MC UG G IN CLARK LE R ME 00 08 12 01 1. 90 SO [address] 70 -2 -1 00 PE 06 MA ti OX 36 4- 7- 0 RS 97 RE ve YP 80 20 20 N RO 10 09 09 FA JA GE [address] LY T ER ON DR E UG 15 0 MG /M L BU 00 11 12 00 12 10 SO 32 TA Ac TA 14 -3 -1 0. PE 93 MA ti LB 31 0- 7- 00 RS 35 RE ve -A 78 20 20 0 N CE 70 09 09 FA JA TA 1 ND NE ND LY T N- CA DR FF UG 50 -3 25 -4 0 00 11 12 00 56 7 SO 32 TA Ac 07 -3 -1 .0 PE 93 MA ti 46 0- 7- 00 RS 36 RE ve 30 20 20 N 41 09 09 FA JA 3 ND NE LY T DR UG AZ 00 11 12 00 12 6 SO 32 TA Ac ED 59 -3 -1 .0 PE 93 MA ti NI 15 0- 7- 00 RS 37 RE ve SO 44 20 20 N NE 20 09 09 FA JA 5 ND NE [address] UG TA BL ET AM 00 11 11 00 20 10 SO 32 TA Ac OX 14 -0 -1 .0 PE 73 MA ti IC 39 5- 9- 00 RS 25 RE ve IL 95 20 20 N LI 10 09 09 FA JA N 1 ND NE [address] L[address] UG TA BL ET AZ 00 11 11 00 12 6 SO 32 TA Ac OM 60 -0 -1 0. PE 68 MA ti ET 31 2- 9- 00 RS 67 RE ve CLARK 58 20 20 0 N ZI 55 09 09 FA JA NE 8 ND NE -C LY T OD EI DR NE UG SY RU P CL 00 10 11 00 20 10 SO 32 TA Ac AR 78 -2 -0 .0 PE 67 MA ti IT 11 9- 5- 00 RS 04 RE ve HR 96 20 20 N OM 26 09 09 FA JA YC 0 ND NE IN LY T 50 DR 0 UG MG TA BL ET 66 10 11 00 11 12 SO 32 TA Ac 99 -2 -0 8. PE 67 MA ti 20 9- 5- 00 RS 05 RE ve 22 20 20 0 N 00 09 09 FA JA 4 ND NE LY T DR UG PO 51 10 10 00 52 30 SO 32 TA Ac LY 99 -0 -2 7. PE 44 MA ti ET 10 5- 2- 00 RS 29 RE ve HY 45 20 20 0 N LE 75 09 09 FA JA NE 7 ND NE LY T GL YC DR OL UG 33 50 PO WD CL 00 09 10 00 60 30 SO 32 TA Ac ON 37 -0 -2 .0 PE 21 MA ti ID 80 9- 2- 00 RS 90 RE ve IN 15 20 20 N E 21 09 09 FA JA HC 0 ND NE L LY T 0. 1 DR MG UG TA BL ET AZ 00 09 10 01 6. 15 SO 32 TA Ac OV 08 -0 -2 70 PE 21 MA ti EN 51 9- 2- 0 RS 86 RE ve TI 13 20 20 N L 20 09 09 FA JA HF 1 ND NE A LY T 90 DR SMILEY G IN CLARK LE R AZ 64 10 10 00 6. 5 SO 32 TA Ac IT 67 -0 -2 00 PE 44 MA ti HR 90 5- 2- 0 RS 25 RE ve OM 96 20 20 N YC 10 09 09 FA JA IN 5 ND NE LY T [address] MG UG TA BL ET CO 50 10 10 00 30 30 SO 32 TA Ac NC 45 -0 -2 .0 PE 44 MA ti ER 80 5- 2- 00 RS 30 RE ve TA 58 20 20 N 60 09 09 FA JA ER 1 ND NE LY T 36 DR MG UG TA BL ET 49 10 10 00 30 10 SO 32 TA Ac 88 -0 -2 .0 PE 44 MA ti 40 5- 2- 00 RS 31 RE ve 77 20 20 N 90 09 09 FA JA 5 ND NE LY T DR UG 00 09 10 00 30 4 SO 32 SC Ac 59 -2 -0 .0 PE 31 HU ti 10 1- 8- 00 RS 61 LS ve 34 20 20 TA 90 09 09 FA D 5 ND CA LY MP BE DR LL UG K 00 09 09 00 20 20 SO 32 TA Ac 09 -0 -2 .0 PE 21 MA ti 51 9- 4- 00 RS 84 RE ve 29 20 20 N 00 09 09 FA JA 6 ND NE LY T DR UG AZ 00 09 09 00 6. 15 SO 32 TA Ac OV 08 -0 -2 70 PE 21 MA ti EN 51 9- 4- 0 RS 86 RE ve TI 13 20 20 N L 20 09 09 FA JA HF 1 ND NE A LY T 90 DR VILLALOBOS UG G IN CLARK LE R AD 00 09 09 00 60 30 SO 32 TA Ac VA 17 -0 -2 .0 PE 21 MA ti IR 30 9- 4- 00 RS 85 RE ve 69 20 20 N 25 60 09 09 FA JA 0- 0 ND NE 50 LY T DI SK UG US SP 00 09 09 00 30 30 SO 32 TA Ac IR 60 -0 -2 .0 PE 21 MA ti ON 35 9- 4- 00 RS 87 RE ve OL 76 20 20 N AC 42 09 09 FA JA TO 1 ND NE NE LY T 50 DR UG MG TA BL ET AM 00 09 09 00 20 10 SO 32 TA Ac OX 14 -0 -2 .0 PE 21 MA ti IC 39 9- 4- 00 RS 82 RE ve IL 95 20 20 N LI 10 09 09 FA JA N 1 ND NE 87 LY T [address] UG TA BL ET KE 00 09 09 00 20 5 SO 32 TA Ac TO 37 -1 -2 .0 PE 25 MA ti RO 81 4- 4- 00 RS 93 RE ve LA 13 20 20 N C 40 09 09 FA JA 10 1 ND NE LY T MG DR TA UG BL ET 60 09 09 00 60 30 SO 32 TA Ac 50 -0 -2 .0 PE 21 MA ti 50 9- 4- 00 RS 89 RE ve 02 20 20 N 50 09 09 FA JA 8 ND NE LY T DR UG AC 00 09 09 00 20 2 SO 32 TA Ac ET 40 -1 -2 .0 PE 25 MA ti AM 60 3- 4- 00 RS 75 RE ve IN 48 20 20 N OP 41 09 09 FA JA HE 0 ND NE N- LY T CO D DR #3 UG TA BL ET AM 66 09 09 00 20 10 SO 32 TA Ac OX 68 -1 -2 .0 PE 27 MA ti -C 51 5- 4- 00 RS 14 RE ve LA 00 20 20 N V 10 09 09 FA JA 87 1 ND NE 5- LY T [address] MG UG TA BL ET ON 55 09 09 00 12 30 SO 32 TA Ac DA 11 -1 -2 .0 PE 25 MA ti NS 10 3- 4- 00 RS 92 RE ve ET 15 20 20 N RO 33 09 09 FA JA N 0 ND NE HC LY T L 4 DR MG UG TA BL ET 00 09 09 00 10 3 SO 32 TA Ac 11 -0 -2 .0 PE 21 MA ti 51 9- 4- 00 RS 83 RE ve 04 20 20 N 10 09 09 FA JA 3 ND NE LY T DR UG FL 60 09 09 00 16 30 SO 32 TA Ac UT 50 -0 -2 .0 PE 21 MA ti IC 50 9- 4- 00 RS 88 RE ve 82 20 20 N ON 90 09 09 FA JA E 1 ND NE AZ LY T OP DR 50 UG MC G SP RA Y ME 00 08 09 00 5. 90 SO [address] 70 -2 -1 00 PE 06 MA ti OX 36 4- 0- 0 RS 97 RE ve YP 80 20 20 N RO 10 09 09 FA JA GE [address] LY T ER ON DR E UG 15 0 MG /M L CL 00 08 08 00 60 30 SO 32 TA Ac ON 37 -1 -2 .0 PE 01 MA ti ID 80 7- 7- 00 RS 17 RE ve IN 15 20 20 N E 21 09 09 FA JA HC 0 ND NE L LY T 0. 1 DR MG UG TA BL ET CO 50 08 08 00 30 30 SO 32 TA Ac NC 45 -1 -2 .0 PE 01 MA ti ER 80 7- 7- 00 RS 15 RE ve TA 58 20 20 N 60 09 09 FA JA ER 1 ND NE LY T 36 DR MG UG TA BL ET 63 08 08 00 20 10 SO 32 TA Ac 82 -1 -2 .0 PE 02 MA ti 40 8- 7- 00 RS 36 RE ve 05 20 20 N 64 09 09 FA JA 0 ND NE LY T DR UG 64 08 08 00 20 10 SO 32 TA Ac 37 -1 -2 .0 PE 01 MA ti 60 7- 7- 00 RS 20 RE ve 54 20 20 N 40 09 09 FA JA 1 ND NE LY T DR UG AM 00 08 08 00 20 10 SO 32 TA Ac OX 14 -1 -2 .0 PE 01 MA ti IC 39 7- 7- 00 RS 18 RE ve IL 95 20 20 N LI 10 09 09 FA JA N 1 ND NE 87 LY T [address] UG TA BL ET SP 00 08 08 00 [address] Ac IR 60 -1 -2 .0 PE 00 ON ti ON 35 4- 7- 00 RS 30 E ve OL 76 20 20 DI AC 42 09 09 FA XI TO 1 ND E NE LY D 50 DR UG MG TA BL ET 00 08 08 00 [address] Ac 17 -1 -2 .0 PE 00 ON ti 22 4- 7- 00 RS 29 E ve 98 20 20 DI 57 09 09 FA XI 0 ND E LY D DR UG 00 07 07 00 30 3 SO 31 SC Ac 59 -1 -3 .0 PE 79 HU ti 10 5- 0- 00 RS 39 LS ve 34 20 20 TA 90 09 09 FA D 5 ND CA LY MP BE DR LL UG K 00 07 00 20 5 SO 31 TA Ac 59 -0 -1 .0 PE 70 MA ti 10 1- 6- 00 RS 07 RE ve 34 20 20 N 90 09 09 FA JA 5 ND NE LY T DR UG AZ 00 06 07 01 12 4 SO 31 TA Ac ED 59 -1 -1 .0 PE 60 MA ti NI 15 7- 6- 00 RS 18 RE ve SO 44 20 20 N NE 20 09 09 FA JA 5 ND NE [address] UG TA BL ET NU 00 06 07 00 1. 28 SO 31 TA Ac VA 05 -1 -1 00 PE 60 MA ti RI 20 7- 6- 0 RS 21 RE ve NG 27 20 20 N 30 09 09 FA JA VA 3 ND NE GI LY T NA L DR INO UG NG BUNN 00 07 07 00 [address] Ac LF 60 -0 -1 .0 PE 70 ON ti AM 35 1- 6- 00 RS 06 E ve ET 78 20 20 DI HO 12 09 09 FA XI XA 8 ND E ZO LY D LE -T DR MP UG DS TA BL ET 00 07 00 30 3 SO 31 SC Ac 59 -0 -1 .0 PE 72 HU ti 10 3- 6- 00 RS 29 LS ve 34 20 20 TA 90 09 09 FA D 5 ND CA LY MP BE DR UG K AZ 00 06 07 00 12 4 SO 31 TA Ac ED 59 -1 -0 .0 PE 60 MA ti NI 15 7- 2- 00 RS 18 RE ve SO 44 20 20 N NE 20 09 09 FA JA 5 ND NE [address] UG TA BL ET ME 57 06 07 00 12 30 SO 31 TA Ac TF 66 -1 -0 0. PE 60 MA ti OR 40 7- 2- 00 RS 23 RE ve ND 39 20 20 0 N N 75 09 09 FA JA HC 8 ND NE L LY T [address] MG UG TA BL ET RA 53 06 07 00 60 30 SO 31 TA Ac NI 74 -1 -0 .0 PE 60 MA ti TI 60 7- 2- 00 RS 22 RE ve DI 25 20 20 N NE 30 09 09 FA JA 5 ND NE 15 LY T [address] UG TA BL ET AZ 00 06 07 00 6. 15 SO 31 TA Ac OV 08 -1 -0 70 PE 60 MA ti EN 51 7- 2- 0 RS 27 RE ve TI 13 20 20 N L 20 09 09 FA JA HF 1 ND NE A LY T 90 DR VILLALOBOS UG G IN [place] LE R 00 06 07 00 80 10 SO 31 TA Ac 78 -1 -0 .0 PE 60 MA ti 12 7- 2- 00 RS 17 RE ve 11 20 20 N 20 09 09 FA JA 1 ND NE LY T DR UG SP 00 06 07 00 30 30 SO 31 TA Ac IR 60 -1 -0 .0 PE 60 MA ti ON 35 7- 2- 00 RS 20 RE ve OL 76 20 20 N AC 42 09 09 FA JA TO 1 ND NE NE LY T 50 DR UG MG TA BL ET AD 00 06 07 00 60 30 SO 31 TA Ac VA 17 -1 -0 .0 PE 60 MA ti IR 30 7- 2- 00 RS 25 RE ve 69 20 20 N 25 60 09 09 FA JA 0- 0 ND NE [address] SK UG US NA 68 06 07 00 60 30 SO 31 TA Ac AZ 46 -1 -0 .0 PE 60 MA ti OX 20 7- 2- 00 RS 19 RE ve EN 19 20 20 N 00 09 09 FA JA 50 5 ND NE [address] TA UG BL ET 00 06 07 00 30 30 SO 31 TA Ac 00 -1 -0 .0 PE 60 MA ti 60 7- 2- 00 RS 26 RE ve 11 20 20 N 73 09 09 FA JA 1 ND NE LY T DR UG FL 60 06 07 00 16 30 SO 31 TA Ac UT 50 -1 -0 .0 PE 60 MA ti IC 50 7- 2- 00 RS 24 RE ve 82 20 20 N ON 90 09 09 FA JA E 1 ND NE AZ LY T OP DR 50 UG MC G SP RA Y NU 00 05 06 00 1. 28 SO 31 ME Ac VA 05 -3 -1 00 PE 47 ES ti RI 20 0- 8- 0 RS 08 E ve NG [address] 30 09 09 FA EP VA 1 ND HE GI LY N NA P L DR RI UG NG CE 00 05 06 00 56 14 SO 31 ME Ac PH 14 -3 -1 .0 PE 47 ES ti AL 39 0- 8- 00 RS 09 E ve EX [address] IN 70 09 09 FA EP 5 ND HE 50 LY N [address] UG CA PS UL E 00 05 05 00 3. 28 SO 31 TA Ac 06 -0 -2 00 PE 27 MA ti 21 4- 1- 0 RS 72 RE ve 92 20 20 N 01 09 09 FA JA 5 ND NE LY T DR UG AM 66 05 05 00 20 10 SO 31 TA Ac OX 68 -0 -2 .0 PE 27 MA ti -C 51 4- 1- 00 RS 70 RE ve LA 00 20 20 N V 10 09 09 FA JA 87 1 ND NE 5- LY T [address] MG UG TA BL ET MU 45 05 05 00 22 10 SO 31 TA Ac PI 80 -0 -2 .0 PE 27 MA ti RO 20 4- 1- 00 RS 71 RE ve CI 11 20 20 N N 22 09 09 FA JA 2% 2 ND NE LY T OI NT DR ME UG NT HY 00 05 05 00 30 10 SO [address] 16 -0 -2 .0 PE 27 MA ti OC 80 4- 1- 00 RS 71 RE ve OR 14 20 20 N TI 63 09 09 FA JA SO 0 ND NE NE LY T 2. DR 5% UG OI NT ME NT ZI 00 05 05 00 30 10 SO 31 TA Ac NC 16 -0 -2 .0 PE 27 MA ti 80 4- 1- 00 RS 71 RE ve OX 06 20 20 N ID 23 09 09 FA JA E 1 ND NE 20 LY T % OI DR NT UG ME NT NY 45 05 05 00 30 10 SO [address] 80 -0 -2 .0 PE 27 MA ti AT 20 4- 1- 00 RS 71 RE ve IN 04 20 20 N 81 09 09 FA JA 10 1 ND NE 0, LY T [address] UN UG IT S/ GM OI NT ME 57 05 05 00 12 30 SO 31 TA Ac TF 66 -0 -2 0. PE 27 MA ti OR 40 4- 1- 00 RS 73 RE ve ND 39 20 20 0 N N 75 09 09 FA JA HC 8 ND NE L LY T [address] MG UG TA BL ET AZ 00 11 02 00 6. 15 SO 29 TA Ac OV 08 -1 -2 70 PE 80 MA ti EN 51 1- 6- 0 RS 32 RE ve TI 13 20 20 N L 20 08 09 FA JA HF 1 ND NE A LY T 90 DR MC UG G IN [place] LE R 00 12 02 01 3. 28 SO 30 TA Ac 06 -3 -2 00 PE 22 MA ti 21 0- 6- 0 RS 50 RE ve 92 20 20 N 01 08 09 FA JA 5 ND NE LY T DR UG 00 12 01 00 3. 28 SO 30 TA Ac 06 -3 -1 00 PE 22 MA ti 21 0- 5- 0 RS 50 RE ve 92 20 20 N 01 08 09 FA JA 5 ND NE LY T DR UG FL 60 12 01 00 16 30 SO 30 TA Ac UT 50 -3 -1 .0 PE 22 MA ti IC 50 0- 5- 00 RS 48 RE ve 82 20 20 N ON 90 08 09 FA JA E 1 ND NE AZ LY T OP DR 50 UG MC G SP RA Y 00 12 01 00 30 30 SO 30 TA Ac 17 -3 -1 .0 PE 22 MA ti 22 0- 5- 00 RS 49 RE ve 98 20 20 N 57 08 09 FA JA 0 ND NE LY T DR UG 66 01 01 00 30 15 SO 30 TA Ac 99 -0 -1 .0 PE 27 MA ti 20 6- 5- 00 RS 41 RE ve 23 20 20 N 56 09 09 FA JA 0 ND NE LY T DR UG AM 00 [...] N 81 08 08 FA JA 0 ND NE LY T UG 00 08 11 01 3. 30 SO 29 TA Ac 06 -0 -2 00 PE 02 MA ti 21 7- 0- 0 RS 75 RE ve 92 20 20 N 01 08 08 FA JA 5 ND NE LY T DR UG 00 11 11 00 21 6 SO 29 TA Ac 55 -1 -2 .0 PE 80 MA ti 50 1- 0- 00 RS 37 RE ve 30 20 20 N 13 08 08 FA JA 8 ND NE LY T UG 64 08 11 01 60 30 SO 29 TA Ac 67 -0 -2 .0 PE 02 MA ti 90 7- 0- 00 RS 73 RE ve 90 20 20 N 60 08 08 FA JA 3 ND NE LY T DR UG CL 00 11 11 00 14 7 SO 29 TA Ac AR 78 -1 -2 .0 PE 80 MA ti IT 11 1- 0- 00 RS 39 RE ve HR 96 20 20 N OM 26 08 08 FA JA YC 0 ND NE IN LY T 50 DR 0 UG MG TA BL ET BE 68 11 11 00 40 13 SO 29 TA Ac NZ 38 -1 -2 .0 PE 80 MA ti ON 20 1- 0- 00 RS 35 RE ve AT 24 20 20 N AT 80 08 08 FA JA E 1 ND NE 20 LY T [address] UG CA PS UL E 00 08 11 01 30 30 SO 29 TA Ac 00 -0 -2 .0 PE 02 MA ti 60 7- 0- 00 RS 71 RE ve 11 20 20 N 73 08 08 FA JA 1 ND NE LY T DR UG AZ 00 08 11 01 6. 30 SO 29 TA Ac OV 08 -0 -2 70 PE 02 MA ti EN 51 7- 0- 0 RS 74 RE ve TI 13 20 20 N L 20 08 08 FA JA HF 1 ND NE A LY T 90 DR MC UG G IN [place] LE R AD 00 08 11 01 60 30 SO 29 TA Ac VA 17 -0 -2 .0 PE 02 MA ti IR 30 7- 0- 00 RS 72 RE ve 69 20 20 N 25 60 08 08 FA JA 0- 0 ND NE [address] SK UG US ET 60 11 11 00 16 4 SO 29 AL Ac OD 50 -0 -2 .0 PE 74 LE ti OL 50 5- 0- 00 RS 41 N ve AC 04 20 20 BR 10 08 08 FA AN 40 1 ND DO 0 LY N MG I DR TA UG BL ET PE 00 11 11 00 28 7 SO 29 AL Ac NI 78 -0 -2 .0 PE 74 LE ti CI 11 5- 0- 00 RS 40 N ve LL 65 20 20 BR IN 51 08 08 FA AN 0 ND DO VK LY N I 50 DR 0 UG MG TA BL ET AM 00 09 09 00 24 8 SO 29 No Ac OX 09 -0 -1 .0 PE 25 t ti -C 32 5- 1- 00 RS 87 Av ve LA 27 20 20 ai V 43 08 08 FA la 50 4 ND bl 0- LY e [address] MG UG TA BL ET 00 09 09 00 10 3 SO 29 No Ac 60 -0 -1 .0 PE 25 t ti 35 5- 1- 00 RS 88 Av ve 14 20 20 ai 23 08 08 FA la 2 ND bl LY e DR UG AD 00 08 08 00 60 30 SO 29 No Ac VA 17 -0 -1 .0 PE 02 t ti IR 30 7- 4- 00 RS 72 Av ve 69 20 20 ai 25 60 08 08 FA la 0- 0 ND bl [address] SK UG US 49 08 08 00 60 30 SO 29 No Ac 88 -0 -1 .0 PE 02 t ti 40 7- 4- 00 RS 73 Av ve 54 20 20 ai 40 08 08 FA la 5 ND bl LY e DR UG 63 08 08 00 60 30 SO 29 No Ac 30 -0 -1 .0 PE 02 t ti 40 7- 4- 00 RS 77 Av ve 65 20 20 ai 70 08 08 FA la 5 ND bl LY e DR UG ME 68 08 08 00 60 30 SO 29 No Ac TF 38 -0 -1 .0 PE 02 t ti OR 20 7- 4- 00 RS 76 Av ve ND 02 20 20 ai N 81 08 08 FA la HC 0 ND bl L LY e [address] MG UG TA BL ET 00 08 08 00 3. 30 SO 29 No Ac 06 -0 -1 00 PE 02 t ti 21 7- 4- 0 RS 75 Av ve 92 20 20 ai 01 08 08 FA la 5 ND bl LY e DR UG AZ 00 08 08 00 6. 30 SO 29 No Ac OV 08 -0 -1 70 PE 02 t ti EN 51 7- 4- 0 RS 74 Av ve TI 13 20 20 ai L 20 08 08 FA la HF 1 ND bl A LY e 90 DR SMILEY G IN [place] LE R 00 08 08 00 30 30 SO 29 No Ac 00 -0 -1 .0 PE 02 t ti 60 7- 4- 00 RS 71 Av ve 11 20 20 ai 73 08 08 FA la 1 ND bl LY e DR BRIGIDO LO 00 06 07 00 20 6 SO 28 No Ac PE 37 -1 -0 .0 PE 65 t ti RA 82 7- 3- 00 RS 97 Av ve ND 10 20 20 ai DE 00 08 08 FA la 2 1 ND bl LY e MG DR CA UG PS UL E BA 00 06 07 00 30 15 SO [address] 02 -1 -0 .0 PE 61 t ti RO 91 0- 3- 00 RS 58 Av ve BA 52 20 20 ai N 72 08 08 FA la 2% 5 ND bl LY e CR EA DR [place] UG AZ 00 06 07 00 15 5 SO 28 No Ac ED 59 -1 -0 .0 PE 61 t ti NI 15 0- 3- 00 RS 59 Av ve SO 44 20 20 ai NE 20 08 08 FA la 5 ND bl [address] UG TA BL ET AZ 68 06 07 00 20 5 SO 28 No Ac OM 38 -1 -0 .0 PE 65 t ti ET 20 7- 3- 00 RS 96 Av ve [place]ARK 04 20 20 ai ZI 11 08 08 FA la NE 0 ND bl LY e 25 DR MG UG TA BL ET AM 00 05 06 00 30 10 SO 28 No Ac OX 09 -1 -0 .0 PE 44 t ti -C 32 9- 5- 00 RS 92 Av ve LA 27 20 20 ai V 43 08 08 FA la 50 4 ND bl 0- LY e [address] MG UG TA BL ET AC 00 05 06 00 12 3 SO 28 No Ac ET 40 -3 -0 .0 PE 53 t ti AM 60 0- 5- 00 RS 61 Av ve IN 48 20 20 ai OP 41 08 08 FA la HE 0 ND bl N- LY e CO D DR #3 UG TA BL ET 60 05 06 00 24 6 SO 28 No Ac 25 -1 -0 0. PE 44 t ti 80 9- 5- 00 RS 93 Av ve 23 20 20 0 ai 91 08 08 FA la 6 ND bl LY e DR UG ME 68 04 04 00 30 30 SO 28 No Ac TF 38 -1 -2 .0 PE 18 t ti OR 20 7- 4- 00 RS 97 Av ve ND 02 20 20 ai N 81 08 08 FA la HC 0 ND bl L LY e [address] MG UG TA BL ET AZ 00 02 04 02 13 30 SO 27 No Ac OV 08 -0 -2 .4 PE 49 t ti EN 51 5- 4- 00 RS 85 Av ve TI 13 20 20 ai L 20 08 08 FA la HF 1 ND bl A LY e 90 DR MC UG G IN [place] LE R CY 59 04 04 00 30 10 SO 28 No Ac CL 74 -1 -2 .0 PE 18 t ti OB 60 7- 4- 00 RS 98 Av ve EN 17 20 20 ai ZA 71 08 08 FA la AZ 0 ND bl IN LY e E 10 DR UG MG TA BL ET 49 04 04 00 30 10 SO 28 No Ac 88 -1 -2 .0 PE 18 t ti 40 7- 4- 00 RS 99 Av ve 77 20 20 ai 90 08 08 FA la 5 ND bl LY e DR UG 53 03 04 00 80 8 SO 27 No Ac 01 -1 -1 .0 PE 84 t ti 40 0- 7- 00 RS 45 Av ve 54 20 20 ai 86 08 08 FA la 7 ND bl LY e DR FOFANA 00 03 04 00 21 6 SO 27 No Ac 55 -1 -1 .0 PE 84 t ti 50 0- 7- 00 RS 46 Av ve 30 20 20 ai 13 08 08 FA la 8 ND bl LY e DR FOFANA AD 00 02 04 01 60 30 SO 27 No Ac VA 17 -0 -1 .0 PE 49 t ti IR 30 5- 7- 00 RS 87 Av ve 69 20 20 ai 25 60 08 08 FA la 0- 0 ND bl [address] MCKENZIE FOFANA US 00 03 04 00 1. 1 SO 27 No Ac 59 -1 -1 00 PE 88 t ti 10 3- 7- 0 RS 49 Av ve 36 20 20 ai 50 08 08 FA la 1 ND bl LY e DR FOFANA 49 03 04 00 30 7 SO 27 No Ac 88 -1 -1 .0 PE 89 t ti 40 4- 7- 00 RS 55 Av ve 77 20 20 ai 90 08 08 FA la 5 ND bl LY e DR FOFANA 00 02 04 01 30 30 SO 27 No Ac 00 -0 -1 .0 PE 49 t ti 60 5- 7- 00 RS 86 Av ve 11 20 20 ai 73 08 08 FA la 1 ND bl LY e DR FOFANA AZ 00 02 04 01 13 30 SO 27 No Ac OV 08 -0 -1 .4 PE 49 t ti EN 51 5- 7- 00 RS 85 Av ve TI 13 20 20 ai L 20 08 08 FA la HF 1 ND bl A LY e 90 DR SMILEY G IN [place] LE R 00 03 04 00 24 6 SO 27 No Ac 59 -1 -1 .0 PE 89 t ti 10 4- 7- 00 RS 54 Av ve 54 20 20 ai 00 08 08 FA la 5 ND bl LY e DR FOFANA 63 03 04 00 21 7 SO 27 No Ac 30 -1 -1 .0 PE 89 t ti 40 4- 7- 00 RS 56 Av ve 65 20 20 ai 50 08 08 FA la 5 ND bl LY e DR FOFANA 00 01 04 01 3. 28 SO 27 No Ac 06 -2 -1 00 PE 41 t ti 21 8- 7- 0 RS 25 Av ve 92 20 20 ai 01 08 08 FA la 5 ND bl LY e DR FOFANA 63 03 04 00 40 10 SO 27 No Ac 30 -1 -1 .0 PE 84 t ti 40 0- 7- 00 RS 47 Av ve 72 20 20 ai 56 08 08 FA la 0 ND bl LY e DR FOFANA 53 02 03 00 12 12 SO 27 No Ac 01 -0 -2 0. PE 49 t ti 40 5- 6- 00 RS 84 Av ve 54 20 20 0 ai 86 08 08 FA la 7 ND bl LY e DR FOFANA AZ 00 02 03 00 13 30 SO 27 No Ac OV 08 -0 -2 .4 PE 49 t ti EN 51 5- 6- 00 RS 85 Av ve TI 13 20 20 ai L 20 08 08 FA la HF 1 ND bl A LY e 90 DR SMILEY G IN [place] LE R 00 01 03 00 3. 28 SO 27 No Ac 06 -2 -2 00 PE 41 t ti 21 8- 6- 0 RS 25 Av ve 92 20 20 ai 01 08 08 FA la 5 ND bl LY e DR FOFANA AD 00 02 03 00 60 30 SO 27 No Ac VA 17 -0 -2 .0 PE 49 t ti IR 30 5- 6- 00 RS 87 Av ve 69 20 20 ai 25 60 08 08 FA la 0- 0 ND bl [address] MCKENZIE FOFAAN US 00 02 03 00 30 30 SO 27 No Ac 00 -0 -2 .0 PE 49 t ti 60 5- 6- 00 RS 86 Av ve 11 20 20 ai 73 08 08 FA la 1 ND bl LY e DR FOFANA Results Labs [...] F complet OR 015 FORD ed 13:45 [employer]ISTRATOR ETHNICI WHITE, complet TY 015 NON-HIS ed [...] CHLAMYDIA AND GONORRHEA TESTING (08-15-2012 11:30) COLLECT [employer]CH[employer] ADMINISTRATOR complet OR 013 ed 11:30 ETHNICI WHITE, [...] NO complet T 012 ed 15:27 CHART [id number] complet NUMBER 012 11 ed 15:27 Chlamyd [...] Comment LOW 741 MARYANN WOLF CERVICAL 4 [facility] INC INC SECTION LAPAROSCO 5123 MARYANN WOLF PIC 9 [facility] CHOLECYST INC INC ECTOMY EXCISION [id number] MARYANN WOLF OF 9 [facility] PILONIDAL INC INC CYST OR SINUS Encounters Encounter Start End Date Code Location Performer Type [facility] KATERINE - 7 7 [facility] MARYANN - 6 6 [facility] JONNY - 6 6 [facility] JONNY [facility] 6 6 [facility] MEAWVIE - 6 6 [facility] MARYANN - 5 5 [facility] KATERINE - 5 5 [facility] KATERINE - 5 5 [facility] KATERINE - 5 5 [facility] MARYANN - 4 4 [facility] CAIT [facility] 1 1 [facility] CAIT - 1 1 [facility] MARYANN - 0 0 [facility] M[facility] - 0 0 [facility] UNIVERS[facility] - 0 0 [facility] CA[facility] 0 0 [facility] CAIT - 0 0 [facility] UNIVERSIT - 0 0 [facility] CAIT [facility] 0 0 [facility] CAIT - 0 0 [facility] CAIT - 0 0 [facility] CAIT - 0 0 [facility] CAIT [facility] 0 0 [facility] CAIT - 0 0 [facility] MARYANN - 9 9 [facility] - 9 9 [facility] [place] - 9 9 [facility] CAIT - 9 9 [facility] [place] - 9 9 [facility] CAIT [facility] 9 9 [facility] MARYANN - 9 9 [facility] MARYANN - 9 9 [facility] CAIT [facility] 9 9 [facility] CAIT - 8 8 [facility]
--- OUTSIDE RECORDS SUMMARY | 2017-06-08 19:02 | External Medical Summary Rpt | CCD ---
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 1- 0 RS 02 RE ve 26 20 20 N 10 71 11 11 FA JA 8 AR NE MG LY T TA DR BL UG ET ME 37 04 04 2 56 28 SO 36 TA Ac IL 00 -0 -0 .0 PE 99 MA ti OS 00 1 RS 03 RE ve EC 45 20 20 N 50 11 11 FA JA OT 4 AR NE C LY T [address] BRIGIDO MG TA BL ET 00 06 04 2 60 30 SO 34 TA Ac 17 -1 -0 .0 PE 48 MA ti 25 1- RS 85 RE ve 66 20 20 N 56 10 11 FA JA 0 AR NE LY T DR UG ME 00 04 04 2 6. [address] Ac OV 08 -0 -0 70 PE 99 ON ti EN 51 1- 1- 0 RS 00 E ve TI 13 20 20 DI L 20 11 11 FA XI HF 1 AR E A LY D 90 DR SMILEY G IN CLARK LE R ME 00 04 04 2 [address] Ac OP 24 -0 -0 .0 PE 99 ON ti RA 50 1 RS 01 E ve NO 08 20 20 DI LO 41 11 11 FA XI L 1 AR E ER LY D 60 DR BRIGIDO MG CA PS UL E BUNN 00 04 04 2 [address] Ac CR 59 -0 -0 0. PE 99 ON ti AL 10 RS 04 E ve FA 78 20 20 0 DI TE 00 11 11 FA XI 1 5 AR E LY D GM DR AMAYA UG BL ET VE 68 04 04 0 [address] Ac NL 38 -0 -0 0. PE 99 ON ti AF 20 1 RS 05 E ve AX 02 20 20 0 DI IN 10 11 11 FA XI E 1 AR E HC LY D L 75 DR BRIGIDO MG TA BL ET NA 68 03 03 1 60 30 SO 36 CL Ac ME 46 -0 -0 .0 PE 75 AR ti OX 20 8- 8- RS 13 KE ve EN 19 20 20 00 11 11 FA DE 50 5 AR RE 0 LY K MG J DR TA UG BL ET MA 00 12 02 2 9. 30 SO 35 TA Ac XA 00 -0 -2 00 PE 93 MA ti LT 60 3- 1- 0 RS 98 RE ve 26 20 20 N 10 71 10 11 FA JA 8 AR NE MG LY T TA DR BL UG ET VE 68 01 02 2 60 30 SO 36 TA Ac NL 38 -0 -2 .0 PE 16 MA ti AF 20 4- 1- 00 RS 96 RE ve AX 02 20 20 N IN 10 11 11 FA JA E 1 AR NE HC LY T L 75 DR UG MG TA BL ET ME 00 12 02 2 6. [address] Ac OV 08 -0 -2 70 PE 93 ON ti EN 51 3- 1- 0 RS 93 E ve TI 13 20 20 DI L 20 10 11 FA XI HF 1 AR E A LY D 90 DR MERCHANT IN CLARK LE R AZ 00 02 02 0 6. [address] Ac IT 78 -0 -0 00 PE 46 ON ti HR 11 7- 7- 0 RS 27 E ve OM 49 20 20 DI YC 66 11 11 FA XI IN 8 AR E LY D [address] MG UG TA BL ET TA 00 02 02 0 [address] Ac AR 00 -0 -0 .0 PE 46 ON ti FL 40 7- 7- 00 RS 24 E ve U 80 20 20 DI 75 08 11 11 FA XI 5 AR E MG LY D CA PS UG UL E ME 00 02 02 0 [address] Ac TH 60 -0 -0 .0 PE 46 ON ti YL 34 7- 7- 00 RS 25 E ve ME 59 20 20 DI ED 31 11 11 FA XI NI 5 AR E SO LY D LO NE DR 4 UG MG DO SE PK 54 02 02 0 [address] Ac 83 -0 -0 0. PE 46 ON ti 80 7- 7- 00 RS 26 E ve 54 20 20 0 DI 48 11 11 FA XI 0 AR E LY D DR UG ME 00 12 01 2 6. [address] Ac OV 08 -0 -2 70 PE 93 ON ti EN 51 3- 4- 0 RS 93 E ve TI 13 20 20 DI L 20 10 11 FA XI HF 1 AR E A LY D 90 DR MERCHANT IN CLARK LE R 00 10 01 2 60 5 SO 35 TA Ac 09 -2 -2 .0 PE 51 MA ti 50 0- 4- 00 RS 66 RE ve 24 20 20 N 00 10 11 FA JA 1 AR NE LY T DR UG ME 37 10 01 2 28 28 SO 35 TA Ac IL 00 -2 -2 .0 PE 51 MA ti OS 00 0- 4- 00 RS 68 RE ve EC 45 20 20 N 50 10 11 FA JA OT 4 AR NE C LY T [address] UG MG TA BL ET 00 12 01 2 9. 30 SO 35 TA Ac 00 -0 -2 00 PE 93 MA ti 60 3- 4- 0 RS 98 RE ve 26 20 20 N 71 10 11 FA JA 2 AR NE LY T DR UG 49 10 01 2 30 30 SO 35 TA Ac 88 -2 -2 .0 PE 57 MA ti 40 7- 4- 00 RS 77 RE ve 28 20 20 N 20 10 11 FA JA 1 AR NE LY T DR UG 59 07 01 5 1. 90 SO 34 TA Ac 76 -2 -1 00 PE 80 MA ti 24 8- 9- 0 RS 67 RE ve 53 20 20 N 80 10 11 FA JA 1 AR NE LY T DR UG FL 00 01 01 0 3. 3 SO 36 TA Ac UC 17 -0 -0 00 PE 16 MA ti ON 25 4- 4- 0 RS 95 RE ve AZ 41 20 20 N OL 21 11 11 FA JA E 1 AR NE 15 LY [address] UG TA BL ET VE 68 01 01 2 60 30 SO 36 TA Ac NL 38 -0 -0 .0 PE 16 MA ti AF 20 4- 4- 00 RS 96 RE ve AX 02 20 20 N IN 10 11 11 FA JA E 1 AR NE HC LY T L 75 DR UG MG TA BL ET 49 10 12 2 30 30 SO 35 TA Ac 88 -2 -0 .0 PE 57 MA ti 40 7- 3- 00 RS 77 RE ve 28 20 20 N 20 10 10 FA JA 1 AR NE LY T DR UG 00 12 12 2 9. 30 SO 35 TA Ac 00 -0 -0 00 PE 93 MA ti 60 3- 3- 0 RS 98 RE ve 26 20 20 N 71 10 10 FA JA 2 AR NE LY T DR UG 00 01 12 5 30 30 SO 33 TA Ac 00 -2 -0 .0 PE 35 MA ti 60 0- 3- 00 RS 44 RE ve 11 20 20 N 73 10 10 FA JA 1 AR NE LY T DR UG 00 10 12 2 60 5 SO 35 TA Ac 09 -2 -0 .0 PE 51 MA ti 50 0- 3- 00 RS 66 RE ve 24 20 20 N 00 10 10 FA JA 1 AR NE LY T DR UG PA 68 10 12 2 30 30 SO 35 TA Ac RO 38 -2 -0 .0 PE 51 MA ti XE 20 0- 3- 00 RS 67 RE ve TI 09 20 20 N NE 80 10 10 FA JA 6 AR NE HC LY T L 20 DR UG MG TA BL ET ME 37 10 12 2 28 28 SO 35 TA Ac IL 00 -2 -0 .0 PE 51 MA ti OS 00 0- 3- 00 RS 68 RE ve EC 45 20 20 N 50 10 10 FA JA OT 4 AR NE C LY T [address] UG MG TA BL ET ME 00 12 12 2 6. [address] Ac OV 08 -0 -0 70 PE 93 ON ti EN 51 3- 3- 0 RS 93 E ve TI 13 20 20 DI L 20 10 10 FA XI HF 1 AR E A LY D 90 DR MC UG G IN CLARK LE R BUNN 00 12 12 2 [address] Ac CR 59 -0 -0 0. PE 94 ON ti AL 10 3- 3- 00 RS 00 E ve FA 78 20 20 0 DI TE 00 10 10 FA XI 1 5 AR E LY D GM DR TA UG BL ET ME 00 10 11 0 6. 15 SO 35 TA Ac OV 08 -2 -1 70 PE 57 MA ti EN 51 7- 0- 0 RS 79 RE ve TI 13 20 20 N L 20 10 10 FA JA HF 1 AR NE A LY T 90 DR MC UG G IN CLARK LE R 00 10 10 0 12 30 SO 35 TA Ac 00 -2 -2 .0 PE 57 MA ti 60 7- 7- 00 RS 78 RE ve 26 20 20 N 71 10 10 FA JA 2 AR NE LY T DR UG CL 00 10 10 0 20 10 SO 35 TA Ac AR 78 -2 -2 .0 PE 57 MA ti IT 11 7- 7- 00 RS 75 RE ve HR 96 20 20 N OM 26 10 10 FA JA YC 0 AR NE IN LY T 50 DR 0 UG MG TA BL ET ME 00 10 10 0 20 8 SO 35 TA Ac ED 59 -2 -2 .0 PE 57 MA ti NI 15 7- 7- 00 RS 76 RE ve SO 44 20 20 N NE 20 10 10 FA JA 5 AR NE [address] UG TA BL ET 49 10 10 2 30 30 SO 35 TA Ac 88 -2 -2 .0 PE 57 MA ti 40 7- 7- 00 RS 77 RE ve 28 20 20 N 20 10 10 FA JA 1 AR NE LY T DR UG AM 00 10 10 0 30 10 SO 35 TA Ac OX 78 -2 -2 .0 PE 55 MA ti IC 12 5- 5- 00 RS 57 RE ve IL 61 20 20 N LI 30 10 10 FA JA N 5 AR NE [address] L[address] UG CA PS UL E 60 10 10 0 24 6 SO 35 TA Ac 25 -2 -2 0. PE 55 MA ti 80 5- 5- 00 RS 58 RE ve 23 20 20 0 N 91 10 10 FA JA 6 AR NE LY T DR UG ME 37 10 10 2 28 28 SO 35 TA Ac IL 00 -2 -2 .0 PE 51 MA ti OS 00 0- 0- 00 RS 68 RE ve EC 45 20 20 N 50 10 10 FA JA OT 4 AR NE C LY T [address] UG MG TA BL ET 00 10 10 2 60 5 SO 35 TA Ac 09 -2 -2 .0 PE 51 MA ti 50 0- 0- 00 RS 66 RE ve 24 20 20 N 00 10 10 FA JA 1 AR NE LY T DR UG PA 68 10 10 2 30 30 SO 35 TA Ac RO 38 -2 -2 .0 PE 51 MA ti XE 20 0- 0- 00 RS 67 RE ve TI 09 20 20 N NE 80 10 10 FA JA 6 AR NE HC LY T L 20 DR UG MG TA BL ET 59 07 10 5 1. 90 SO 34 TA Ac 76 -2 -1 00 PE 80 MA ti 24 8- 9- 0 RS 67 RE ve 53 20 20 N 80 10 10 FA JA 1 AR NE LY T DR UG VE 00 01 10 5 18 30 SO 33 TA Ac NT 17 -2 -1 .0 PE 35 MA ti OL 30 0- 1- 00 RS 42 RE ve IN 68 20 20 N 22 10 10 FA JA HF 0 AR NE A LY T 90 DR MC UG G IN CLARK LE R 00 09 09 0 24 4 SO 35 WO Ac 59 -2 -2 .0 PE 25 NG ti 10 1- 1- 00 RS 65 , ve 34 20 20 MD 90 10 10 FA 5 AR LE LY SL EY DR UG VE 00 01 09 5 18 30 SO 33 TA Ac NT 17 -2 -1 .0 PE 35 MA ti OL 30 0- 0- 00 RS 42 RE ve IN 68 20 20 N 22 10 10 FA JA HF 0 AR NE A LY T 90 DR SMILEY G IN CLARK LE R OX 00 09 09 0 20 3 SO 35 WO Ac YC 40 -0 -0 .0 PE 15 NG ti OD 60 9- 9- 00 RS 33 , ve ON 51 20 20 MD E- 20 10 10 FA AC 5 AR LE ET LY SL AM EY IN DR OP UG HE N 5- 32 5 CE 68 09 09 0 20 10 SO 35 WO Ac FA 18 -0 -0 .0 PE [address] 00 9- 9- 00 RS 34 , ve OX 18 20 20 MD IL 00 10 10 FA 1 AR LE 50 LY SL [address] BRIGIDO CA PS UL E OX 00 08 [...] CA PS 10 UL 04 E 93 00 06 08 2 60 30 SO 34 TA Ac 17 -1 -0 .0 PE 48 MA ti 25 1- 6- 00 RS 85 RE ve 66 20 20 N 56 10 10 FA JA 0 AR NE LY T DR UG BUNN 62 04 08 2 9. 30 SO 34 TA Ac MA 75 -2 -0 00 PE 12 MA ti TR 60 6- 6- 0 RS 27 RE ve IP 52 20 20 N TA 26 10 10 FA JA N 9 AR NE BUNN LY T CC DR 10 UG 0 MG TA BL ET VE 00 01 08 5 18 30 SO 33 TA Ac NT 17 -2 -0 .0 PE 35 MA ti OL 30 0- 4- 00 RS 42 RE ve IN 68 20 20 N 22 10 10 FA JA HF 0 AR NE A LY T 90 DR SMILEY G IN CLARK LE R 59 07 07 5 1. 90 SO 34 TA Ac 76 -2 -2 00 PE 80 MA ti 24 8- 8- 0 RS 67 RE ve 53 20 20 N 80 10 10 FA JA 1 AR NE LY T DR UG VE 00 01 07 5 18 30 SO 33 TA Ac NT 17 -2 -0 .0 PE 35 MA ti OL 30 0- 7- 00 RS 42 RE ve IN 68 20 20 N 22 10 10 FA JA HF 0 AR NE A LY T 90 DR MC UG G IN CLARK LE R CL 00 01 07 5 60 30 SO 33 TA Ac ON 37 -2 -0 .0 PE 35 MA ti ID 80 0- 6- 00 RS 40 RE ve IN 15 20 20 N E 21 10 10 FA JA HC 0 AR NE L LY T 0. 1 DR MG UG TA BL ET 00 06 06 2 60 30 SO 34 TA Ac 17 -1 -1 .0 PE 48 MA ti 25 1- 1- 00 RS 85 RE ve 66 20 20 N 56 10 10 FA JA 0 AR NE LY T DR UG VE 00 01 06 5 18 30 SO 33 TA Ac NT 17 -2 -0 .0 PE 35 MA ti OL 30 0- 8- 00 RS 42 RE ve IN 68 20 20 N 22 10 10 FA JA HF 0 AR NE A LY T 90 DR MC UG G IN CLARK LE R 00 01 06 5 30 30 SO 33 TA Ac 00 -2 -0 .0 PE 35 MA ti 60 0- 8- 00 RS 44 RE ve 11 20 20 N 73 10 10 FA JA 1 AR NE LY T DR UG TO 68 03 06 2 90 30 SO 33 TA Ac PI 46 -2 -0 .0 PE 90 MA ti RA 20 9- 8- 00 RS 64 RE ve MA 15 20 20 N TE 36 10 10 FA JA 0 AR NE [address] UG TA BL ET 00 04 06 2 60 30 SO 34 TA Ac 11 -2 -0 .0 PE 08 MA ti 57 0- 8- 00 RS 13 RE ve 01 20 20 N 81 10 10 FA JA 3 AR NE LY T DR UG CL 00 01 05 5 60 30 SO 33 TA Ac ON 37 -2 -2 .0 PE 35 MA ti ID 80 0- 6- 00 RS 40 RE ve IN 15 20 20 N E 21 10 10 FA JA HC 0 AR NE L LY T 0. 1 DR MG UG TA BL ET CL 00 05 05 0 60 30 SO 34 TA Ac AR 55 -2 -2 .0 PE 33 MA ti AV 51 0- 0- 00 RS 40 RE ve IS 05 20 20 N 78 10 10 FA JA 40 6 AR NE LY T MG DR CA UG PS UL E CL 00 05 05 0 45 30 SO 34 TA Ac ON 18 -1 -1 .0 PE 32 MA ti AZ 50 9- 9- 00 RS 33 RE ve EP 06 20 20 N AM 31 10 10 FA JA 0 AR NE 0. LY T [address] UG TA BL ET 59 05 05 0 1. 90 SO 34 TA Ac 76 -1 -1 00 PE 25 MA ti 24 1- 1- 0 RS 11 RE ve 53 20 20 N 80 10 10 FA JA 1 AR NE LY T DR UG AL 24 05 05 0 24 8 SO 34 Ac LE 38 -0 -0 .0 PE 22 LL ti RG 50 7- 7- 00 RS 85 AF ve Y 46 20 20 LO 25 26 10 10 FA R 2 AR OS MG LY IA S CA DR M PS UG UL E TO 68 03 05 2 90 30 SO 33 TA Ac PI 46 -2 -0 .0 PE 90 MA ti RA 20 9- 6- 00 RS 64 RE ve MA 15 20 20 N TE 36 10 10 FA JA 0 AR NE [address] UG TA BL ET TR 60 05 05 0 60 5 SO 34 TA Ac IA 43 -0 -0 .0 PE 21 MA ti MC 20 6- 6- 00 RS 44 RE ve IN 56 20 20 N OL 16 10 10 FA JA ON 0 AR NE E LY T 0. 1% DR UG LO TI ON 50 05 05 0 30 10 SO 34 TA Ac 11 -0 -0 .0 PE 20 MA ti 10 5- 5- 00 RS 65 RE ve 30 20 20 N 80 10 10 FA JA 2 AR NE LY T DR UG ME 00 05 05 0 12 6 SO 34 TA Ac ED 59 -0 -0 .0 PE 20 MA ti NI 15 5- 5- 00 RS 66 RE ve SO 44 20 20 N NE 20 10 10 FA JA 5 AR NE [address] UG TA BL ET VE 00 01 04 5 18 30 SO 33 TA Ac NT 17 -2 -2 .0 PE 35 MA ti OL 30 0- 8- 00 RS 42 RE ve IN 68 20 20 N 22 10 10 FA JA HF 0 AR NE A LY T 90 DR MC UG G IN CLARK LE R BUNN 62 04 04 2 9. 30 SO 34 TA Ac MA 75 -2 -2 00 PE 12 MA ti TR 60 6- 6- 0 RS 27 RE ve IP 52 20 20 N TA 26 10 10 FA JA N 9 AR NE BUNN LY T CC DR 10 UG 0 MG TA BL ET 00 04 04 2 60 30 SO 34 TA Ac 11 -2 -2 .0 PE 08 MA ti 57 0- 0- 00 RS 13 RE ve 01 20 20 N 81 10 10 FA JA 3 AR NE LY T DR UG IB 55 04 04 0 60 15 SO 34 TA Ac UP 11 -2 -2 .0 PE 08 MA ti RO 10 0- 0- 00 RS 14 RE ve FE 68 20 20 N N 40 10 10 FA JA 80 5 AR NE [address] TA UG BL ET CL 00 04 04 0 60 30 SO 34 TA Ac AR 55 -2 -2 .0 PE 08 MA ti AV 51 0- 0- 00 RS 16 RE ve IS 05 20 20 N 78 10 10 FA JA 40 6 AR NE LY T MG DR CA UG PS UL E ME 10 03 03 0 40 7 SO 33 TA Ac OM 70 -2 -2 .0 PE 90 MA ti ET 20 9- 9 00 RS 66 RE ve CLARK 00 20 20 N ZI 31 10 10 FA JA NE 0 AR NE LY T 25 DR MG UG TA BL ET TO 68 03 03 2 90 30 SO 33 TA Ac PI 46 -2 -2 .0 PE 90 MA ti RA 20 9 9- 00 RS 64 RE ve MA 15 20 20 N TE 36 10 10 FA JA 0 AR NE [address] UG TA BL ET DO 00 03 03 0 28 14 SO 33 TA Ac XY 14 -2 -2 .0 PE 90 MA ti CY 33 9- 9- 00 RS 65 RE ve CL 14 20 20 N IN 20 10 10 FA JA E 5 AR NE HY LY T CL AT DR E UG 10 0 MG CA P CL 00 01 03 5 60 30 SO 33 TA Ac ON 37 -2 -0 .0 PE 35 MA ti ID 80 0- 4- 00 RS 40 RE ve IN 15 20 20 N E 21 10 10 FA JA HC 0 AR NE L LY T 0. 1 DR MG UG TA BL ET VE 00 01 03 5 18 30 SO 33 TA Ac NT 17 -2 -0 .0 PE 35 MA ti OL 30 0- 4- 00 RS 42 RE ve IN 68 20 20 N 22 10 10 FA JA HF 0 AR NE A LY T 90 DR MC UG G IN CLARK LE R RA 53 01 03 5 60 30 SO 33 TA Ac NI 74 -2 -0 .0 PE 35 MA ti TI 60 0- 4- 00 RS 43 RE ve DI 25 20 20 N NE 30 10 10 FA JA 5 AR NE [address] LY [address] UG TA BL ET 00 01 03 5 30 30 SO 33 TA Ac 00 -2 -0 .0 PE 35 MA ti 60 0- 4- 00 RS 44 RE ve 11 20 20 N 73 10 10 FA JA 1 AR NE LY T DR UG AZ 64 01 02 00 6. [address] Ac IT 67 -2 -1 00 PE 43 ON ti HR 90 9- 1- 0 RS 15 E ve OM 96 20 20 DI YC 10 10 10 FA XI IN 5 AR E LY D [address] MG UG TA BL ET DE 60 01 02 00 [address] Ac XA 43 -2 -1 .0 PE 43 ON ti ME 20 9- 1- 00 RS 17 E ve TH 46 20 20 DI 60 10 10 FA XI ON 8 AR E E LY D 0. 5 DR MG UG /5 ML EL X BA 00 07 25 00 [address] Ac NO 90 -2 -1 0. PE 43 ON ti PH 45 9- - 00 RS 17 E ve EN 17 20 20 0 DI 41 10 10 FA XI 12 6 AR E .[address] /5 UG ML SO CHAVEZ TI ON [place] 00 07 25 00 [address] 60 -2 -1 .0 PE 43 ON ti AT 31 9- 1- 00 RS 17 E ve IN 48 20 20 DI 15 10 10 FA XI 10 8 AR E 0, LY D [address] UN UG IT /M L BUNN SP CH 00 07 25 00 [address] Ac ER 60 -2 -1 8. PE 43 ON ti AT 31 9- 1- 00 RS 16 E ve US 07 20 20 0 DI SI 55 10 10 FA XI N 4 AR E AC LY D SY DR RU UG P NA 68 01 00 60 30 SO 33 TA Ac ME 46 -1 -2 .0 PE 30 MA ti OX 20 4- 8- 00 RS 98 RE ve EN 19 20 20 N 00 10 10 FA JA 50 5 AR NE [address] TA UG BL ET TI 00 07 24 00 40 14 SO 33 TA Ac ZA 18 -1 -2 .0 PE 30 MA ti NI 50 4- 8- 00 RS 99 RE ve DI 03 20 20 N NE 45 10 10 FA JA 1 AR NE HC LY T L 2 DR MG UG TA BL ET CL 00 07 24 99 60 30 SO 33 TA Ac ON 37 -2 -2 .0 PE 35 MA ti ID 80 0- 8- 00 RS 40 RE ve IN 15 20 20 N E 21 10 10 FA JA HC 0 AR NE L LY T 0. 1 DR MG UG TA BL ET RA 53 01 01 00 60 30 SO 33 TA Ac NI 74 -2 -2 .0 PE 35 MA ti TI 60 0- 8- 00 RS 43 RE ve DI 25 20 20 N NE 30 10 10 FA JA 5 AR NE 15 LY T [address] UG TA BL ET CO 50 01 01 00 30 30 SO 33 TA Ac NC 45 -2 -2 .0 PE 35 MA ti ER 80 0- 8- 00 RS 41 RE ve TA 58 20 20 N 60 10 10 FA JA ER 1 AR NE LY T 36 DR MG UG TA BL ET TO 68 01 01 00 70 28 SO 33 TA Ac PI 46 -1 -2 .0 PE 30 MA ti RA 20 4- 8- 00 RS 97 RE ve MA 10 20 20 N TE 86 10 10 FA JA 0 AR NE [address] UG TA BL ET VE 00 01 00 8. 15 SO 33 TA Ac NT 17 -2 -2 00 PE 35 MA ti OL 30 0- 8- 0 RS 42 RE ve IN 68 20 20 N 22 10 10 FA JA HF 4 AR NE A LY T 90 DR MC UG G IN CLARK LE R 00 01 01 00 30 30 SO 33 TA Ac 00 -2 -2 .0 PE 35 MA ti 60 0- 8- 00 RS 44 RE ve 11 20 20 N 73 10 10 FA JA 1 AR NE LY T DR UG ME 00 10 01 00 6. 15 SO 32 TA Ac OV 08 -0 -1 70 PE 44 MA ti EN 51 5- 4- 0 RS 26 RE ve TI 13 20 20 N L 20 09 10 FA JA HF 1 AR NE A LY T 90 DR MC UG G IN CLARK LE R ME 00 11 12 00 12 6 SO 32 TA Ac ED 59 -3 -1 .0 PE 93 MA ti NI 15 0- 7- 00 RS 37 RE ve SO 44 20 20 N NE 20 09 09 FA JA 5 AR NE [address] UG TA BL ET 00 11 12 00 56 7 SO 32 TA Ac 07 -3 -1 .0 PE 93 MA ti 46 0- 7- 00 RS 36 RE ve 30 20 20 N 41 09 09 FA JA 3 AR NE LY T DR UG BU 00 11 12 00 12 10 SO 32 TA Ac TA 14 -3 -1 0. PE 93 MA ti LB 31 0- 7- 00 RS 35 RE ve -A 78 20 20 0 N CE 70 09 09 FA JA TA 1 AR NE AR LY T N- CA DR FF UG 50 -3 25 -4 0 ME 00 08 12 01 1. 90 SO [address] 70 -2 -1 00 PE 06 MA ti OX 36 4- 7- 0 RS 97 RE ve YP 80 20 20 N RO 10 09 09 FA JA GE [address] LY T ER ON DR E UG 15 0 MG /M L AM 00 11 11 00 20 10 SO 32 TA Ac OX 14 -0 -1 .0 PE 73 MA ti IC 39 5- 9- 00 RS 25 RE ve IL 95 20 20 N LI 10 09 09 FA JA N 1 AR NE 87 LY T [address] UG TA BL ET ME 00 11 11 00 12 6 SO 32 TA Ac OM 60 -0 -1 0. PE 68 MA ti ET 31 2- 9- 00 RS 67 RE ve CLARK 58 20 20 0 N ZI 55 09 09 FA JA NE 8 AR NE -C LY T OD EI DR NE UG SY RU P CL 00 10 11 00 20 10 SO 32 TA Ac AR 78 -2 -0 .0 PE 67 MA ti IT 11 9- 5- 00 RS 04 RE ve HR 96 20 20 N OM 26 09 09 FA JA YC 0 AR NE IN LY T 50 DR 0 UG MG TA BL ET 66 10 11 00 11 12 SO 32 TA Ac 99 -2 -0 8. PE 67 MA ti 20 9- 5- 00 RS 05 RE ve 22 20 20 0 N 00 09 09 FA JA 4 AR NE LY T DR UG PO 51 10 10 00 52 30 SO 32 TA Ac LY 99 -0 -2 7. PE 44 MA ti ET 10 5- 2- 00 RS 29 RE ve HY 45 20 20 0 N LE 75 09 09 FA JA NE 7 AR NE LY T GL YC DR OL UG 33 50 PO WD ME 00 09 10 01 6. 15 SO 32 TA Ac OV 08 -0 -2 70 PE 21 MA ti EN 51 9- 2- 0 RS 86 RE ve TI 13 20 20 N L 20 09 09 FA JA HF 1 AR NE A LY T 90 DR MC UG G IN CLARK LE R CL 00 09 10 00 60 30 SO 32 TA Ac ON 37 -0 -2 .0 PE 21 MA ti ID 80 9- 2- 00 RS 90 RE ve IN 15 20 20 N E 21 09 09 FA JA HC 0 AR NE L LY T 0. 1 DR MG UG TA BL ET CO 50 10 10 00 30 30 SO 32 TA Ac NC 45 -0 -2 .0 PE 44 MA ti ER 80 5- 2- 00 RS 30 RE ve TA 58 20 20 N 60 09 09 FA JA ER 1 AR NE LY T 36 DR MG UG TA BL ET 49 10 10 00 30 10 SO 32 TA Ac 88 -0 -2 .0 PE 44 MA ti 40 5- 2- 00 RS 31 RE ve 77 20 20 N 90 09 09 FA JA 5 AR NE LY T DR UG AZ 64 10 10 00 6. 5 SO 32 TA Ac IT 67 -0 -2 00 PE 44 MA ti HR 90 5- 2- 0 RS 25 RE ve OM 96 20 20 N YC 10 09 09 FA JA IN 5 AR NE LY T [address] MG UG TA BL ET 00 09 10 00 30 4 SO 32 SC Ac 59 -2 -0 .0 PE 31 HU ti 10 1- 8- 00 RS 61 LS ve 34 20 20 TA 90 09 09 FA D 5 AR CA LY MP BE DR LL UG K 60 09 09 00 60 30 SO 32 TA Ac 50 -0 -2 .0 PE 21 MA ti 50 9- 4- 00 RS 89 RE ve 02 20 20 N 50 09 09 FA JA 8 AR NE LY T DR UG SP 00 09 09 00 30 30 SO 32 TA Ac IR 60 -0 -2 .0 PE 21 MA ti ON 35 9- 4- 00 RS 87 RE ve OL 76 20 20 N AC 42 09 09 FA JA TO 1 AR NE NE LY T 50 DR UG MG TA BL ET AM 00 09 00 20 10 SO 32 TA Ac OX 14 -0 -2 .0 PE 21 MA ti IC 39 9- 4- 00 RS 82 RE ve IL 95 20 20 N LI 10 09 09 FA JA N 1 AR NE 87 LY T [address] UG TA BL ET 00 09 09 00 10 3 SO 32 TA Ac 11 -0 -2 .0 PE 21 MA ti 51 9- 4- 00 RS 83 RE ve 04 20 20 N 10 09 09 FA JA 3 AR NE LY T DR UG ON 55 09 09 00 12 30 SO 32 TA Ac DA 11 -1 -2 .0 PE 25 MA ti NS 10 3- 4- 00 RS 92 RE ve ET 15 20 20 N RO 33 09 09 FA JA N 0 AR NE HC LY T L 4 DR MG UG TA BL ET 00 09 09 00 20 20 SO 32 TA Ac 09 -0 -2 .0 PE 21 MA ti 51 9- 4- 00 RS 84 RE ve 29 20 20 N 00 09 09 FA JA 6 AR NE LY T DR UG ME 00 09 09 00 6. 15 SO 32 TA Ac OV 08 -0 -2 70 PE 21 MA ti EN 51 9- 4- 0 RS 86 RE ve TI 13 20 20 N L 20 09 09 FA JA HF 1 AR NE A LY T 90 MC UG G IN CLARK LE R AC 00 09 09 00 20 2 SO 32 TA Ac ET 40 -1 -2 .0 PE 25 MA ti AM 60 3- 4- 00 RS 75 RE ve IN 48 20 20 N OP 41 09 09 FA JA HE 0 AR NE N- LY T CO D DR #3 UG TA BL ET AM 66 09 09 00 20 10 SO 32 TA Ac OX 68 -1 -2 .0 PE 27 MA ti -C 51 5- 4- 00 RS 14 RE ve LA 00 20 20 N V 10 09 09 FA JA 87 1 AR NE 5- LY T [address] MG UG TA BL ET FL 60 09 09 00 16 30 SO 32 TA Ac UT 50 -0 -2 .0 PE 21 MA ti IC 50 9- 4- 00 RS 88 RE ve 82 20 20 N ON 90 09 09 FA JA E 1 AR NE ME LY T OP 50 UG MC G SP RA Y KE 00 09 09 00 20 5 SO 32 TA Ac TO 37 -1 -2 .0 PE 25 MA ti RO 81 4- 4- 00 RS 93 RE ve LA 13 20 20 N C 40 09 09 FA JA 10 1 AR NE LY T MG DR TA UG BL ET AD 00 09 09 00 60 30 SO 32 TA Ac VA 17 -0 -2 .0 PE 21 MA ti IR 30 9- 4- 00 RS 85 RE ve 69 20 20 N 25 60 09 09 FA JA 0- 0 AR NE 50 LY T DI SK UG US ME 00 08 09 00 5. 90 SO [address] 70 -2 -1 00 PE 06 MA ti OX 36 4- 0- 0 RS 97 RE ve YP 80 20 20 N RO 10 09 09 FA JA GE [address] LY T ER ON E UG 15 0 MG /M L CL 00 08 08 00 60 30 SO 32 TA Ac ON 37 -1 -2 .0 PE 01 MA ti ID 80 7- 7- 00 RS 17 RE ve IN 15 20 20 N E 21 09 09 FA JA HC 0 AR NE L LY T 0. 1 DR MG UG TA BL ET CO 50 08 08 00 30 30 SO 32 TA Ac NC 45 -1 -2 .0 PE 01 MA ti ER 80 7- 7- 00 RS 15 RE ve TA 58 20 20 N 60 09 09 FA JA ER 1 AR NE LY T 36 DR MG UG TA BL ET AM 00 08 08 00 20 10 SO 32 TA Ac OX 14 -1 -2 .0 PE 01 MA ti IC 39 7- 7- 00 RS 18 RE ve IL 95 20 20 N LI 10 09 09 FA JA N 1 AR NE 87 LY T [address] UG TA BL ET 63 08 08 00 20 10 SO 32 TA Ac 82 -1 -2 .0 PE 02 MA ti 40 8- 7- 00 RS 36 RE ve 05 20 20 N 64 09 09 FA JA 0 AR NE LY T DR UG 64 08 08 00 20 10 SO 32 TA Ac 37 -1 -2 .0 PE 01 MA ti 60 7- 7- 00 RS 20 RE ve 54 20 20 N 40 09 09 FA JA 1 AR NE LY T DR UG SP 00 08 08 00 [address] Ac IR 60 -1 -2 .0 PE 00 ON ti ON 35 4- 7- 00 RS 30 E ve OL 76 20 20 DI AC 42 09 09 FA XI TO 1 AR E NE LY D 50 DR UG MG TA BL ET 00 08 08 00 [address] Ac 17 -1 -2 .0 PE 00 ON ti 22 4- 7- 00 RS 29 E ve 98 20 20 DI 57 09 09 FA XI 0 AR E LY D DR UG 00 07 00 30 3 SO 31 SC Ac 59 -1 -3 .0 PE 79 HU ti 10 5- 0- 00 RS 39 LS ve 34 20 20 TA 90 09 09 FA D 5 AR CA LY MP BE DR JENNIFER UG K ME 00 06 07 01 12 4 SO 31 TA Ac ED 59 -1 -1 .0 PE 60 MA ti NI 15 7- 6- 00 RS 18 RE ve SO 44 20 20 N NE 20 09 09 FA JA 5 AR NE [address] UG TA BL ET 00 07 07 00 30 3 SO 31 SC Ac 59 -0 -1 .0 PE 72 HU ti 10 3- 6- 00 RS 29 LS ve 34 20 20 TA 90 09 09 FA D 5 AR CA LY MP BE DR LL UG K BUNN 00 07 07 00 [address] Ac LF 60 -0 -1 .0 PE 70 ON ti AM 35 1- 6- 00 RS 06 E ve ET 78 20 20 DI HO 12 09 09 FA XI XA 8 AR E ZO LY D LE -T DR MP UG DS TA BL ET NU 00 06 07 00 1. 28 SO 31 TA Ac VA 05 - - 00 PE 60 MA ti RI 20 7- 6- 0 RS 21 RE ve NG 27 20 20 N 30 09 09 FA JA VA 3 AR NE GI LY T NA L DR RI UG NG 00 07 07 00 20 5 SO 31 TA Ac 59 -0 -1 .0 PE 70 MA ti 10 1- 6- 00 RS 07 RE ve 34 20 20 N 90 09 09 FA JA 5 AR NE LY T DR UG NA 68 06 07 00 60 30 SO 31 TA Ac ME 46 -1 -0 .0 PE 60 MA ti OX 20 7- 2- 00 RS 19 RE ve EN 19 20 20 N 00 09 09 FA JA 50 5 AR NE [address] TA UG BL ET FL 60 06 07 00 16 30 SO 31 TA Ac UT 50 -1 -0 .0 PE 60 MA ti IC 50 7- 2- 00 RS 24 RE ve 82 20 20 N ON 90 09 09 FA JA E 1 AR NE ME LY T OP DR 50 UG MC G SP RA Y 00 07 00 80 10 SO 31 TA Ac 78 -1 -0 .0 PE 60 MA ti 12 7- 2- 00 RS 17 RE ve 11 20 20 N 20 09 09 FA JA 1 AR NE LY T DR UG ME 00 07 00 12 4 SO 31 TA Ac ED 59 -1 -0 .0 PE 60 MA ti NI 15 7- 2- 00 RS 18 RE ve SO 44 20 20 N NE 20 09 09 FA JA 5 AR NE [address] UG TA BL ET SP 00 06 07 00 30 30 SO 31 TA Ac IR 60 -1 -0 .0 PE 60 MA ti ON 35 7- 2- 00 RS 20 RE ve OL 76 20 20 N AC 42 09 09 FA JA TO 1 AR NE NE LY T 50 DR UG MG TA BL ET AD 00 06 07 00 60 30 SO 31 TA Ac VA 17 -1 -0 .0 PE 60 MA ti IR 30 7- 2- 00 RS 25 RE ve 69 20 20 N 25 60 09 09 FA JA 0- 0 AR NE [address] SK UG US ME 57 06 07 00 12 30 SO 31 TA Ac TF 66 -1 -0 0. PE 60 MA ti OR 40 7- 2- 00 RS 23 RE ve AR 39 20 20 0 N N 75 09 09 FA JA HC 8 AR NE L LY T [address] MG UG TA BL ET 00 06 07 00 30 30 SO 31 TA Ac 00 -1 -0 .0 PE 60 MA ti 60 7- 2- 00 RS 26 RE ve 11 20 20 N 73 09 09 FA JA 1 AR NE LY T DR UG RA 53 06 07 00 60 30 SO 31 TA Ac NI 74 -1 -0 .0 PE 60 MA ti TI 60 7- 2- 00 RS 22 RE ve DI 25 20 20 N NE 30 09 09 FA JA 5 AR NE 15 LY T [address] UG TA BL ET ME 00 06 07 00 6. 15 SO 31 TA Ac OV 08 -1 -0 70 PE 60 MA ti EN 51 7- 2- 0 RS 27 RE ve TI 13 20 20 N L 20 09 09 FA JA HF 1 AR NE A LY T 90 DR WILFREDO UG G IN [place] LE R NU 00 05 06 00 1. 28 SO 31 ME Ac VA 05 -3 -1 00 PE 47 ES ti RI 20 0- 8- 0 RS 08 E ve NG [address] 30 09 09 FA EP VA 1 AR HE GI LY N NA P L DR RI UG NG CE 00 05 06 00 56 14 SO 31 ME Ac PH 14 -3 -1 .0 PE 47 ES ti AL 39 0- 8- 00 RS 09 E ve EX [address] IN 70 09 09 FA EP 5 AR HE 50 LY N [address] UG CA PS UL E MU 45 05 05 00 22 10 SO 31 TA Ac PI 80 -0 -2 .0 PE 27 MA ti RO 20 4- 1- 00 RS 71 RE ve CI 11 20 20 N N 22 09 09 FA JA 2% 2 AR NE LY T OI NT DR ME UG NT HY 00 05 05 00 30 10 SO [address] 16 -0 -2 .0 PE 27 MA ti OC 80 4- 1- 00 RS 71 RE ve OR 14 20 20 N TI 63 09 09 FA JA SO 0 AR NE NE LY T 2. DR 5% UG OI NT ME NT ZI 00 05 05 00 30 10 SO 31 TA Ac NC 16 -0 -2 .0 PE 27 MA ti 80 4- 1- 00 RS 71 RE ve OX 06 20 20 N ID 23 09 09 FA JA E 1 AR NE 20 LY T % OI DR NT UG ME NT NY 45 05 05 00 30 10 SO [address] 80 -0 -2 .0 PE 27 MA ti AT 20 4- 1- 00 RS 71 RE ve IN 04 20 20 N 81 09 09 FA JA 10 1 AR NE 0, LY T [address] UN UG IT S/ GM OI NT ME 57 05 05 00 12 30 SO 31 TA Ac TF 66 -0 -2 0. PE 27 MA ti OR 40 4- 1- 00 RS 73 RE ve AR 39 20 20 0 N N 75 09 09 FA JA HC 8 AR NE L LY T [address] MG UG TA BL ET 00 05 05 00 3. 28 SO 31 TA Ac 06 -0 -2 00 PE 27 MA ti 21 4- 1- 0 RS 72 RE ve 92 20 20 N 01 09 09 FA JA 5 AR NE LY T DR UG AM 66 05 05 00 20 10 SO 31 TA Ac OX 68 -0 -2 .0 PE 27 MA ti -C 51 4- 1- 00 RS 70 RE ve LA 00 20 20 N V 10 09 09 FA JA 87 1 AR NE 5- LY T [address] MG UG TA BL ET 00 12 02 01 3. 28 SO 30 TA Ac 06 -3 -2 00 PE 22 MA ti 21 0- 6- 0 RS 50 RE ve 92 20 20 N 01 08 09 FA JA 5 AR NE LY T DR UG ME 00 11 02 00 6. 15 SO 29 TA Ac OV 08 -1 -2 70 PE 80 MA ti EN 51 1- 6- 0 RS 32 RE ve TI 13 20 20 N L 20 08 09 FA JA HF 1 AR NE A LY T 90 DR MC UG G IN CLARK LE R FL 60 12 01 00 16 30 SO 30 TA Ac UT 50 -3 -1 .0 PE 22 MA ti IC 50 0- 5- 00 RS 48 RE ve 82 20 20 N ON 90 08 09 FA JA E 1 AR NE ME LY T OP DR 50 UG MC G SP RA Y 66 01 01 00 30 15 SO 30 TA Ac 99 -0 -1 .0 PE 27 MA ti 20 6- 5- 00 RS 41 RE ve 23 20 20 N 56 09 09 FA JA 0 AR NE LY T DR UG AM 00 [...] C C EA R SO LN 00 12 01 00 3. 28 SO 30 TA Ac 06 -3 -1 00 PE 22 MA ti 21 0- 5- 0 RS 50 RE ve 92 20 20 N 01 08 09 FA JA 5 AR NE LY T DR UG 00 12 01 00 30 30 SO 30 TA Ac 17 -3 -1 .0 PE 22 MA ti 22 0- 5- 00 RS 49 RE ve 98 20 20 N 57 08 09 FA JA 0 AR NE LY T DR UG CL 00 11 11 00 14 7 SO 29 TA Ac AR 78 -1 -2 .0 PE 80 MA ti IT 11 1- 0- 00 RS 39 RE ve HR 96 20 20 N OM 26 08 08 FA JA YC 0 AR NE IN LY T 50 DR 0 UG MG TA BL ET 00 11 11 00 12 30 SO 29 TA Ac 40 -1 -2 0. PE 80 MA ti 62 1- 0- 00 RS 41 RE ve 02 20 20 0 N 81 08 08 FA JA 0 AR NE LY T DR UG ME 00 08 11 01 6. 30 SO 29 TA Ac OV 08 -0 -2 70 PE 02 MA ti EN 51 7- 0- 0 RS 74 RE ve TI 13 20 20 N L 20 08 08 FA JA HF 1 AR NE A LY T 90 DR MC UG G IN [place]ARK LE R AD 00 08 11 01 60 30 SO 29 TA Ac VA 17 -0 -2 .0 PE 02 MA ti IR 30 7- 0- 00 RS 72 RE ve 69 20 20 N 25 60 08 08 FA JA 0- 0 AR NE [address] SK UG US BE 68 11 11 00 40 13 SO 29 TA Ac NZ 38 -1 -2 .0 PE 80 MA ti ON 20 1- 0- 00 RS 35 RE ve AT 24 20 20 N AT 80 08 08 FA JA E 1 AR NE 20 LY T [address] UG CA PS UL E 00 08 11 01 3. 30 SO 29 TA Ac 06 -0 -2 00 PE 02 MA ti 21 7- 0- 0 RS 75 RE ve 92 20 20 N 01 08 08 FA JA 5 AR NE LY T DR UG 00 11 11 00 21 6 SO 29 TA Ac 55 -1 -2 .0 PE 80 MA ti 50 1- 0- 00 RS 37 RE ve 30 20 20 N 13 08 08 FA JA 8 AR NE LY T DR UG 00 08 11 01 30 30 SO 29 TA Ac 00 -0 -2 .0 PE 02 MA ti 60 7- 0- 00 RS 71 RE ve 11 20 20 N 73 08 08 FA JA 1 AR NE LY T DR UG ET 60 11 11 00 16 4 SO 29 AL Ac OD 50 -0 -2 .0 PE 74 LE ti OL 50 5- 0- 00 RS 41 N ve AC 04 20 20 BR 10 08 08 FA AN 40 1 AR DO 0 LY N MG I DR TA UG BL ET PE 00 11 11 00 28 7 SO 29 AL Ac NI 78 -0 -2 .0 PE 74 LE ti CI 11 5- 0- 00 RS 40 N ve LL 65 20 20 BR IN 51 08 08 FA AN 0 AR DO VK LY N I 50 DR 0 UG MG TA BL ET 64 08 11 01 60 30 SO 29 TA Ac 67 -0 -2 .0 PE 02 MA ti 90 7- 0- 00 RS 73 RE ve 90 20 20 N 60 08 08 FA JA 3 AR NE LY T DR UG AM 00 09 09 00 24 8 SO 29 No Ac OX 09 -0 -1 .0 PE 25 t ti -C 32 5- 1- 00 RS 87 Av ve LA 27 20 20 ai V 43 08 08 FA la 50 4 AR bl 0- LY e [address] MG UG TA BL ET 00 09 09 00 10 3 SO 29 No Ac 60 -0 -1 .0 PE 25 t ti 35 5- 1- 00 RS 88 Av ve 14 20 20 ai 23 08 08 FA la 2 AR bl LY e DR UG AD 00 08 08 00 60 30 SO 29 No Ac VA 17 -0 -1 .0 PE 02 t ti IR 30 7- 4- 00 RS 72 Av ve 69 20 20 ai 25 60 08 08 FA la 0- 0 AR bl [address] SK UG US 49 08 08 00 60 30 SO 29 No Ac 88 -0 -1 .0 PE 02 t ti 40 7- 4- 00 RS 73 Av ve 54 20 20 ai 40 08 08 FA la 5 AR bl LY e DR UG 63 08 08 00 60 30 SO 29 No Ac 30 -0 -1 .0 PE 02 t ti 40 7- 4- 00 RS 77 Av ve 65 20 20 ai 70 08 08 FA la 5 AR bl LY e DR UG ME 00 08 08 00 6. 30 SO 29 No Ac OV 08 -0 -1 70 PE 02 t ti EN 51 7- 4- 0 RS 74 Av ve TI 13 20 20 ai L 20 08 08 FA la HF 1 AR bl A LY e 90 DR WILFREDO UG G IN [place] LE R 00 08 08 00 30 30 SO 29 No Ac 00 -0 -1 .0 PE 02 t ti 60 7- 4- 00 RS 71 Av ve 11 20 20 ai 73 08 08 FA la 1 AR bl LY e DR UG ME 68 08 08 00 60 30 SO 29 No Ac TF 38 -0 -1 .0 PE 02 t ti OR 20 7- 4- 00 RS 76 Av ve AR 02 20 20 ai N 81 08 08 FA la HC 0 AR bl L LY e [address] MG UG TA BL ET 00 08 08 00 3. 30 SO 29 No Ac 06 -0 -1 00 PE 02 t ti 21 7- 4- 0 RS 75 Av ve 92 20 20 ai 01 08 08 FA la 5 AR bl LY e DR UG ME 00 06 07 00 15 5 SO 28 No Ac ED 59 -1 -0 .0 PE 61 t ti NI 15 0- 3- 00 RS 59 Av ve SO 44 20 20 ai NE 20 08 08 FA la 5 AR bl [address] UG TA BL ET LO 00 06 07 00 20 6 SO 28 No Ac PE 37 -1 -0 .0 PE 65 t ti RA 82 7- 3- 00 RS 97 Av ve AR 10 20 20 ai DE 00 08 08 FA la 2 1 AR bl LY e MG DR CA UG PS UL E ME 68 06 07 00 20 5 SO 28 No Ac OM 38 -1 -0 .0 PE 65 t ti ET 20 7- 3- 00 RS 96 Av ve CLARK 04 20 20 ai ZI 11 08 08 FA la NE 0 AR bl LY e 25 DR MG UG TA BL ET BA 00 06 07 00 30 15 SO [address] 02 -1 -0 .0 PE 61 t ti RO 91 0- 3- 00 RS 58 Av ve BA 52 20 20 ai N 72 08 08 FA la 2% 5 AR bl LY e CR EA DR M UG AC 00 05 06 00 12 3 SO 28 No Ac ET 40 -3 -0 .0 PE 53 t ti AM 60 0- 5- 00 RS 61 Av ve IN 48 20 20 ai OP 41 08 08 FA la HE 0 AR bl N- LY e CO D DR #3 UG TA BL ET 60 05 06 00 24 6 SO 28 No Ac 25 -1 -0 0. PE 44 t ti 80 9- 5- 00 RS 93 Av ve 23 20 20 0 ai 91 08 08 FA la 6 AR bl LY e DR UG AM 00 05 06 00 30 10 SO 28 No Ac OX 09 -1 -0 .0 PE 44 t ti -C 32 9- 5- 00 RS 92 Av ve LA 27 20 20 ai V 43 08 08 FA la 50 4 AR bl 0- LY e [address] MG UG TA BL ET ME 00 02 04 02 13 30 SO 27 No Ac OV 08 -0 -2 .4 PE 49 t ti EN 51 5- 4- 00 RS 85 Av ve TI 13 20 20 ai L 20 08 08 FA la HF 1 AR bl A LY e 90 DR MC UG G IN [place] LE R CY 59 04 04 00 30 10 SO 28 No Ac CL 74 -1 -2 .0 PE 18 t ti OB 60 7- 4- 00 RS 98 Av ve EN 17 20 20 ai ZA 71 08 08 FA la ME 0 AR bl IN LY e E 10 DR UG MG TA BL ET 49 04 04 00 30 10 SO 28 No Ac 88 -1 -2 .0 PE 18 t ti 40 7- 4- 00 RS 99 Av ve 77 20 20 ai 90 08 08 FA la 5 AR bl LY e DR UG ME 68 04 04 00 30 30 SO 28 No Ac TF 38 -1 -2 .0 PE 18 t ti OR 20 7- 4- 00 RS 97 Av ve AR 02 20 20 ai N 81 08 08 FA la HC 0 AR bl L LY e [address] MG UG TA BL ET AD 00 02 04 01 60 30 SO 27 No Ac VA 17 -0 -1 .0 PE 49 t ti IR 30 5- 7- 00 RS 87 Av ve 69 20 20 ai 25 60 08 08 FA la 0- 0 AR bl 50 LY e DI SK UG US 00 01 04 01 3. 28 SO 27 No Ac 06 -2 -1 00 PE 41 t ti 21 8- 7- 0 RS 25 Av ve 92 20 20 ai 01 08 08 FA la 5 AR bl LY e DR FOFANA 63 03 04 00 21 7 SO 27 No Ac 30 -1 -1 .0 PE 89 t ti 40 4- 7- 00 RS 56 Av ve 65 20 20 ai 50 08 08 FA la 5 AR bl LY e DR FOFANA 00 03 04 00 1. 1 SO 27 No Ac 59 -1 -1 00 PE 88 t ti 10 3- 7- 0 RS 49 Av ve 36 20 20 ai 50 08 08 FA la 1 AR bl LY e DR FOFANA 49 03 04 00 30 7 SO 27 No Ac 88 -1 -1 .0 PE 89 t ti 40 4- 7- 00 RS 55 Av ve 77 20 20 ai 90 08 08 FA la 5 AR bl LY e DR FOFANA 53 03 04 00 80 8 SO 27 No Ac 01 -1 -1 .0 PE 84 t ti 40 0- 7- 00 RS 45 Av ve 54 20 20 ai 86 08 08 FA la 7 AR bl LY e DR FOFANA 00 03 04 00 21 6 SO 27 No Ac 55 -1 -1 .0 PE 84 t ti 50 0- 7- 00 RS 46 Av ve 30 20 20 ai 13 08 08 FA la 8 AR bl LY e DR FOFANA 63 03 04 00 40 10 SO 27 No Ac 30 -1 -1 .0 PE 84 t ti 40 0- 7- 00 RS 47 Av ve 72 20 20 ai 56 08 08 FA la 0 AR bl LY e DR FOFANA 00 03 04 00 24 6 SO 27 No Ac 59 -1 -1 .0 PE 89 t ti 10 4- 7- 00 RS 54 Av ve 54 20 20 ai 00 08 08 FA la 5 AR bl LY e DR FOFANA 00 02 04 01 30 30 SO 27 No Ac 00 -0 -1 .0 PE 49 t ti 60 5- 7- 00 RS 86 Av ve 11 20 20 ai 73 08 08 FA la 1 AR bl LY e DR FOFANA ME 00 02 04 01 13 30 SO 27 No Ac OV 08 -0 -1 .4 PE 49 t ti EN 51 5- 7- 00 RS 85 Av ve TI 13 20 20 ai L 20 08 08 FA la HF 1 AR bl A LY e 90 DR SMILEY G IN [place] LE R ME 00 02 03 00 13 30 SO 27 No Ac OV 08 -0 -2 .4 PE 49 t ti EN 51 5- 6- 00 RS 85 Av ve TI 13 20 20 ai L 20 08 08 FA la HF 1 AR bl A LY e 90 DR SMILEY G IN [place] LE R 00 02 03 00 30 30 SO 27 No Ac 00 -0 -2 .0 PE 49 t ti 60 5- 6- 00 RS 86 Av ve 11 20 20 ai 73 08 08 FA la 1 AR bl LY e DR BRIGIDO 53 02 03 00 12 12 SO 27 No Ac 01 -0 -2 0. PE 49 t ti 40 5- 6- 00 RS 84 Av ve 54 20 20 0 ai 86 08 08 FA la 7 AR bl LY e DR UG AD 00 02 03 00 60 30 SO 27 No Ac VA 17 -0 -2 .0 PE 49 t ti IR 30 5- 6- 00 RS 87 Av ve 69 20 20 ai 25 60 08 08 FA la 0- 0 AR bl [address] RINCON UG US 00 01 03 00 3. 28 SO 27 No Ac 06 -2 -2 00 PE 41 t ti 21 8- 6- 0 RS 25 Av ve 92 20 20 ai 01 08 08 FA la 5 AR bl LY e DR FOFANA Procedures Procedure DOS Code Location Performer Comment [facility] 741 MARYANN WOLF CERVICAL 4 [facility] SE[facility] 5123 MARYANN WOLF PIC 9 [facility] ECTOMY EXCISION [id number] MARYANN WOLF OF 9 [facility] CYST OR SINUS Encounters Encounter Start End Date Code Location Performer Type Date [facility] - 7 7 [facility] 6 [facility] JONNY - 6 6 [facility] - 6 6 [facility] J[facility] 6 6 [facility] MARYANN - 5 5 [facility] 5 5 [facility] 5 [facility] - 4 4 [facility] CAIT [facility] 1 1 [facility] CA[facility] - 1 1 [facility] M[facility] - 0 0 [facility] 0 [facility] - 0 0 [facility] CAIT - 0 0 [facility] CAIT [facility] 0 0 [facility] UNIVERSIT - 0 0 [facility] CAIT - 0 0 [facility] CAIT - 0 0 [facility] CAIT - 0 0 [facility] CAIT - 0 0 [facility] CATI - 0 0 [facility] CAIT [facility] 0 0 [facility] MARYANN - 9 9 [facility] 9 9 [facility] 9 9 [facility] [place] - 9 9 [facility] CAIT [facility] 9 9 [facility] MARYANN - 9 9 [facility] - 9 9 [facility] CA[facility] 9 9 [facility] CAIT - 8 8 [facility]
--- OUTSIDE RECORDS SUMMARY | 2017-06-08 19:02 | External Medical Summary Rpt | CCD ---
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 1 MS E A LY D 90 DR SMILEY G IN [place]ARK LE R ND 00 04 04 2 [address] Ac OP 24 -0 -0 .0 PE 99 ON ti RA 50 1 RS 01 E ve NO 08 20 20 DI LO 41 11 11 FA XI L 1 MS E ER LY D 60 DR BRIGIDO MG CA PS UL E BUNN 00 04 04 2 [address] Ac CR 59 -0 -0 0. PE 99 ON ti AL 10 RS 04 E ve FA 78 20 20 0 DI TE 00 11 11 FA XI 1 5 MS E LY D GM DR AMAYA UG BL ET VE 68 04 04 0 [address] Ac NL 38 -0 -0 0. PE 99 ON ti AF 20 1 RS 05 E ve AX 02 20 20 0 DI IN 10 11 11 FA XI E 1 MS E HC LY D L 75 DR BRIGIDO MG TA BL ET NA 68 03 03 1 60 30 SO 36 CL Ac ND 46 -0 -0 .0 PE 75 AR ti OX 20 8- 8- RS 13 KE ve EN 19 20 20 00 11 11 FA DE 50 5 MS RE 0 LY K MG J DR TA UG BL ET MA 00 12 02 2 9. 30 SO 35 TA Ac XA 00 -0 -2 00 PE 93 MA ti LT 60 3- 1- 0 RS 98 RE ve 26 20 20 N 10 71 10 11 FA JA 8 MS NE MG LY T TA DR BL UG ET VE 68 01 02 2 60 30 SO 36 TA Ac NL 38 -0 -2 .0 PE 16 MA ti AF 20 4- 1- 00 RS 96 RE ve AX 02 20 20 N IN 10 11 11 FA JA E 1 MS NE HC LY T L 75 DR UG MG TA BL ET ND 00 12 02 2 6. [address] Ac OV 08 -0 -2 70 PE 93 ON ti EN 51 3- 1- 0 RS 93 E ve TI 13 20 20 DI L 20 10 11 FA XI HF 1 MS E A LY D 90 DR MERCHANT IN [place] LE R AZ 00 02 02 0 6. [address] Ac IT 78 -0 -0 00 PE 46 ON ti HR 11 7- 7- 0 RS 27 E ve OM 49 20 20 DI YC 66 11 11 FA XI IN 8 MS E LY D [address] MG UG TA BL ET TA 00 02 02 0 [address] Ac MS 00 -0 -0 .0 PE 46 ON ti FL 40 7- 7- 00 RS 24 E ve U 80 20 20 DI 75 08 11 11 FA XI 5 MS E MG LY D CA PS UG UL E ME 00 02 02 0 [address] Ac TH 60 -0 -0 .0 PE 46 ON ti YL 34 7- 7- 00 RS 25 E ve ND 59 20 20 DI ED 31 11 11 FA XI NI 5 MS E SO LY D LO NE DR 4 UG MG DO SE PK 54 02 02 0 [address] Ac 83 -0 -0 0. PE 46 ON ti 80 7- 7- 00 RS 26 E ve 54 20 20 0 DI 48 11 11 FA XI 0 MS E LY D DR UG ND 00 12 01 2 6. [address] Ac OV 08 -0 -2 70 PE 93 ON ti EN 51 3- 4- 0 RS 93 E ve TI 13 20 20 DI L 20 10 11 FA XI HF 1 MS E A LY D 90 DR MERCHANT IN [place] LE R 00 10 01 2 60 5 SO 35 TA Ac 09 -2 -2 .0 PE 51 MA ti 50 0- 4- 00 RS 66 RE ve 24 20 20 N 00 10 11 FA JA 1 MS NE LY T DR UG ND 37 10 01 2 28 28 SO 35 TA Ac IL 00 -2 -2 .0 PE 51 MA ti OS 00 0- 4- 00 RS 68 RE ve EC 45 20 20 N 50 10 11 FA JA OT 4 MS NE C LY T [address] UG MG TA BL ET 00 12 01 2 9. 30 SO 35 TA Ac 00 -0 -2 00 PE 93 MA ti 60 3- 4- 0 RS 98 RE ve 26 20 20 N 71 10 11 FA JA 2 MS NE LY T DR UG 49 10 01 2 30 30 SO 35 TA Ac 88 -2 -2 .0 PE 57 MA ti 40 7- 4- 00 RS 77 RE ve 28 20 20 N 20 10 11 FA JA 1 MS NE LY T DR UG 59 07 01 5 1. 90 SO 34 TA Ac 76 -2 -1 00 PE 80 MA ti 24 8- 9- 0 RS 67 RE ve 53 20 20 N 80 10 11 FA JA 1 MS NE LY T DR UG FL 00 01 01 0 3. 3 SO 36 TA Ac UC 17 -0 -0 00 PE 16 MA ti ON 25 4- 4- 0 RS 95 RE ve AZ 41 20 20 N OL 21 11 11 FA JA E 1 MS NE 15 LY [address] UG TA BL ET VE 68 01 01 2 60 30 SO 36 TA Ac NL 38 -0 -0 .0 PE 16 MA ti AF 20 4- 4- 00 RS 96 RE ve AX 02 20 20 N IN 10 11 11 FA JA E 1 MS NE HC LY T L 75 DR UG MG TA BL ET 49 10 12 2 30 30 SO 35 TA Ac 88 -2 -0 .0 PE 57 MA ti 40 7- 3- 00 RS 77 RE ve 28 20 20 N 20 10 10 FA JA 1 MS NE LY T DR UG 00 12 12 2 9. 30 SO 35 TA Ac 00 -0 -0 00 PE 93 MA ti 60 3- 3- 0 RS 98 RE ve 26 20 20 N 71 10 10 FA JA 2 MS NE LY T DR UG 00 01 12 5 30 30 SO 33 TA Ac 00 -2 -0 .0 PE 35 MA ti 60 0- 3- 00 RS 44 RE ve 11 20 20 N 73 10 10 FA JA 1 MS NE LY T DR UG 00 10 12 2 60 5 SO 35 TA Ac 09 -2 -0 .0 PE 51 MA ti 50 0- 3- 00 RS 66 RE ve 24 20 20 N 00 10 10 FA JA 1 MS NE LY T DR UG PA 68 10 12 2 30 30 SO 35 TA Ac RO 38 -2 -0 .0 PE 51 MA ti XE 20 0- 3- 00 RS 67 RE ve TI 09 20 20 N NE 80 10 10 FA JA 6 MS NE HC LY T L 20 DR UG MG TA BL ET ND 37 10 12 2 28 28 SO 35 TA Ac IL 00 -2 -0 .0 PE 51 MA ti OS 00 0- 3- 00 RS 68 RE ve EC 45 20 20 N 50 10 10 FA JA OT 4 MS NE C LY T [address] UG MG TA BL ET ND 00 12 12 2 6. [address] Ac OV 08 -0 -0 70 PE 93 ON ti EN 51 3- 3- 0 RS 93 E ve TI 13 20 20 DI L 20 10 10 FA XI HF 1 MS E A LY D 90 DR MC UG G IN CLARK LE R BUNN 00 12 12 2 [address] Ac CR 59 -0 -0 0. PE 94 ON ti AL 10 3- 3- 00 RS 00 E ve FA 78 20 20 0 DI TE 00 10 10 FA XI 1 5 MS E LY D GM DR TA UG BL ET ND 00 10 11 0 6. 15 SO 35 TA Ac OV 08 -2 -1 70 PE 57 MA ti EN 51 7- 0- 0 RS 79 RE ve TI 13 20 20 N L 20 10 10 FA JA HF 1 MS NE A LY T 90 DR MC UG G IN CLARK LE R 00 10 10 0 12 30 SO 35 TA Ac 00 -2 -2 .0 PE 57 MA ti 60 7- 7- 00 RS 78 RE ve 26 20 20 N 71 10 10 FA JA 2 MS NE LY T DR UG CL 00 10 10 0 20 10 SO 35 TA Ac AR 78 -2 -2 .0 PE 57 MA ti IT 11 7- 7- 00 RS 75 RE ve HR 96 20 20 N OM 26 10 10 FA JA YC 0 MS NE IN LY T 50 DR 0 UG MG TA BL ET ND 00 10 10 0 20 8 SO 35 TA Ac ED 59 -2 -2 .0 PE 57 MA ti NI 15 7- 7- 00 RS 76 RE ve SO 44 20 20 N NE 20 10 10 FA JA 5 MS NE [address] UG TA BL ET 49 10 10 2 30 30 SO 35 TA Ac 88 -2 -2 .0 PE 57 MA ti 40 7- 7- 00 RS 77 RE ve 28 20 20 N 20 10 10 FA JA 1 MS NE LY T DR UG AM 00 10 10 0 30 10 SO 35 TA Ac OX 78 -2 -2 .0 PE 55 MA ti IC 12 5- 5- 00 RS 57 RE ve IL 61 20 20 N LI 30 10 10 FA JA N 5 MS NE [address] L[address] UG CA PS UL E 60 10 10 0 24 6 SO 35 TA Ac 25 -2 -2 0. PE 55 MA ti 80 5- 5- 00 RS 58 RE ve 23 20 20 0 N 91 10 10 FA JA 6 MS NE LY T DR UG ND 37 10 10 2 28 28 SO 35 TA Ac IL 00 -2 -2 .0 PE 51 MA ti OS 00 0- 0- 00 RS 68 RE ve EC 45 20 20 N 50 10 10 FA JA OT 4 MS NE C LY T [address] UG MG TA BL ET 00 10 10 2 60 5 SO 35 TA Ac 09 -2 -2 .0 PE 51 MA ti 50 0- 0- 00 RS 66 RE ve 24 20 20 N 00 10 10 FA JA 1 MS NE LY T DR UG PA 68 10 10 2 30 30 SO 35 TA Ac RO 38 -2 -2 .0 PE 51 MA ti XE 20 0- 0- 00 RS 67 RE ve TI 09 20 20 N NE 80 10 10 FA JA 6 MS NE HC LY T L 20 DR UG MG TA BL ET 59 07 10 5 1. 90 SO 34 TA Ac 76 -2 -1 00 PE 80 MA ti 24 8- 9- 0 RS 67 RE ve 53 20 20 N 80 10 10 FA JA 1 MS NE LY T DR UG VE 00 01 10 5 18 30 SO 33 TA Ac NT 17 -2 -1 .0 PE 35 MA ti OL 30 0- 1- 00 RS 42 RE ve IN 68 20 20 N 22 10 10 FA JA HF 0 MS NE A LY T 90 DR MC UG G IN CLARK LE R 00 09 09 0 24 4 SO 35 WO Ac 59 -2 -2 .0 PE 25 NG ti 10 1- 1- 00 RS 65 , ve 34 20 20 MD 90 10 10 FA 5 MS LE LY SL EY DR UG VE 00 01 09 5 18 30 SO 33 TA Ac NT 17 -2 -1 .0 PE 35 MA ti OL 30 0- 0- 00 RS 42 RE ve IN 68 20 20 N 22 10 10 FA JA HF 0 MS NE A LY T 90 DR SMILEY G IN CLARK LE R OX 00 09 09 0 20 3 SO 35 WO Ac YC 40 -0 -0 .0 PE 15 NG ti OD 60 9- 9- 00 RS 33 , ve ON 51 20 20 MD E- 20 10 10 FA AC 5 MS LE ET LY SL AM EY IN DR OP UG HE N 5- 32 5 CE 68 09 09 0 20 10 SO 35 WO Ac FA 18 -0 -0 .0 PE [address] 00 9- 9- 00 RS 34 , ve OX 18 20 20 MD IL 00 10 10 FA 1 MS LE 50 LY SL 0 EY MG [...] N 56 10 10 FA JA 0 MS NE LY T DR UG BUNN 62 04 08 2 9. 30 SO 34 TA Ac MA 75 -2 -0 00 PE 12 MA ti TR 60 6- 6- 0 RS 27 RE ve IP 52 20 20 N TA 26 10 10 FA JA N 9 MS NE BUNN LY T CC DR 10 UG 0 MG TA BL ET VE 00 01 08 5 18 30 SO 33 TA Ac NT 17 -2 -0 .0 PE 35 MA ti OL 30 0- 4- 00 RS 42 RE ve IN 68 20 20 N 22 10 10 FA JA HF 0 MS NE A LY T 90 DR SMILEY G IN [place] LE R 59 07 07 5 1. 90 SO 34 TA Ac 76 -2 -2 00 PE 80 MA ti 24 8- 8- 0 RS 67 RE ve 53 20 20 N 80 10 10 FA JA 1 MS NE LY T DR UG VE 00 01 07 5 18 30 SO 33 TA Ac NT 17 -2 -0 .0 PE 35 MA ti OL 30 0- 7- 00 RS 42 RE ve IN 68 20 20 N 22 10 10 FA JA HF 0 MS NE A LY T 90 DR MC UG G IN CLARK LE R CL 00 01 07 5 60 30 SO 33 TA Ac ON 37 -2 -0 .0 PE 35 MA ti ID 80 0- 6- 00 RS 40 RE ve IN 15 20 20 N E 21 10 10 FA JA HC 0 MS NE L LY T 0. 1 DR MG UG TA BL ET 00 06 06 2 60 30 SO 34 TA Ac 17 -1 -1 .0 PE 48 MA ti 25 1- 1- 00 RS 85 RE ve 66 20 20 N 56 10 10 FA JA 0 MS NE LY T DR UG VE 00 01 06 5 18 30 SO 33 TA Ac NT 17 -2 -0 .0 PE 35 MA ti OL 30 0- 8- 00 RS 42 RE ve IN 68 20 20 N 22 10 10 FA JA HF 0 MS NE A LY T 90 DR MC UG G IN CLARK LE R 00 01 06 5 30 30 SO 33 TA Ac 00 -2 -0 .0 PE 35 MA ti 60 0- 8- 00 RS 44 RE ve 11 20 20 N 73 10 10 FA JA 1 MS NE LY T DR UG TO 68 03 06 2 90 30 SO 33 TA Ac PI 46 -2 -0 .0 PE 90 MA ti RA 20 9- 8- 00 RS 64 RE ve MA 15 20 20 N TE 36 10 10 FA JA 0 MS NE [address] UG TA BL ET 00 04 06 2 60 30 SO 34 TA Ac 11 -2 -0 .0 PE 08 MA ti 57 0- 8- 00 RS 13 RE ve 01 20 20 N 81 10 10 FA JA 3 MS NE LY T DR UG CL 00 01 05 5 60 30 SO 33 TA Ac ON 37 -2 -2 .0 PE 35 MA ti ID 80 0- 6- 00 RS 40 RE ve IN 15 20 20 N E 21 10 10 FA JA HC 0 MS NE L LY T 0. 1 DR MG UG TA BL ET CL 00 05 05 0 60 30 SO 34 TA Ac AR 55 -2 -2 .0 PE 33 MA ti AV 51 0- 0- 00 RS 40 RE ve IS 05 20 20 N 78 10 10 FA JA 40 6 MS NE LY T MG DR CA UG PS UL E CL 00 05 05 0 45 30 SO 34 TA Ac ON 18 -1 -1 .0 PE 32 MA ti AZ 50 9- 9- 00 RS 33 RE ve EP 06 20 20 N AM 31 10 10 FA JA 0 MS NE 0. LY T [address] UG TA BL ET 59 05 05 0 1. 90 SO 34 TA Ac 76 -1 -1 00 PE 25 MA ti 24 1- 1- 0 RS 11 RE ve 53 20 20 N 80 10 10 FA JA 1 MS NE LY T DR UG AL 24 05 05 0 24 8 SO 34 Ac LE 38 -0 -0 .0 PE 22 LL ti RG 50 7- 7- 00 RS 85 AF ve Y 46 20 20 LO 25 26 10 10 FA R 2 MS OS MG LY IA S CA DR M PS UG UL E TO 68 03 05 2 90 30 SO 33 TA Ac PI 46 -2 -0 .0 PE 90 MA ti RA 20 9- 6- 00 RS 64 RE ve MA 15 20 20 N TE 36 10 10 FA JA 0 MS NE [address] UG TA BL ET TR 60 05 05 0 60 5 SO 34 TA Ac IA 43 -0 -0 .0 PE 21 MA ti MC 20 6- 6- 00 RS 44 RE ve IN 56 20 20 N OL 16 10 10 FA JA ON 0 MS NE E LY T 0. 1% DR UG LO TI ON 50 05 05 0 30 10 SO 34 TA Ac 11 -0 -0 .0 PE 20 MA ti 10 5- 5- 00 RS 65 RE ve 30 20 20 N 80 10 10 FA JA 2 MS NE LY T DR UG ND 00 05 05 0 12 6 SO 34 TA Ac ED 59 -0 -0 .0 PE 20 MA ti NI 15 5- 5- 00 RS 66 RE ve SO 44 20 20 N NE 20 10 10 FA JA 5 MS NE [address] UG TA BL ET VE 00 01 04 5 18 30 SO 33 TA Ac NT 17 -2 -2 .0 PE 35 MA ti OL 30 0- 8- 00 RS 42 RE ve IN 68 20 20 N 22 10 10 FA JA HF 0 MS NE A LY T 90 DR MC UG G IN CLARK LE R BUNN 62 04 04 2 9. 30 SO 34 TA Ac MA 75 -2 -2 00 PE 12 MA ti TR 60 6- 6- 0 RS 27 RE ve IP 52 20 20 N TA 26 10 10 FA JA N 9 MS NE BUNN LY T CC DR 10 UG 0 MG TA BL ET 00 04 04 2 60 30 SO 34 TA Ac 11 -2 -2 .0 PE 08 MA ti 57 0- 0- 00 RS 13 RE ve 01 20 20 N 81 10 10 FA JA 3 MS NE LY T DR UG IB 55 04 04 0 60 15 SO 34 TA Ac UP 11 -2 -2 .0 PE 08 MA ti RO 10 0- 0- 00 RS 14 RE ve FE 68 20 20 N N 40 10 10 FA JA 80 5 MS NE [address] TA UG BL ET CL 00 04 04 0 60 30 SO 34 TA Ac AR 55 -2 -2 .0 PE 08 MA ti AV 51 0- 0- 00 RS 16 RE ve IS 05 20 20 N 78 10 10 FA JA 40 6 MS NE LY T MG DR CA UG PS UL E ND 10 03 03 0 40 7 SO 33 TA Ac OM 70 -2 -2 .0 PE 90 MA ti ET 20 9- 9 00 RS 66 RE ve CLARK 00 20 20 N ZI 31 10 10 FA JA NE 0 MS NE LY T 25 DR MG UG TA BL ET TO 68 03 03 2 90 30 SO 33 TA Ac PI 46 -2 -2 .0 PE 90 MA ti RA 20 9 9- 00 RS 64 RE ve MA 15 20 20 N TE 36 10 10 FA JA 0 MS NE [address] UG TA BL ET DO 00 03 03 0 28 14 SO 33 TA Ac XY 14 -2 -2 .0 PE 90 MA ti CY 33 9- 9- 00 RS 65 RE ve CL 14 20 20 N IN 20 10 10 FA JA E 5 MS NE HY LY T CL AT DR E UG 10 0 MG CA P CL 00 01 03 5 60 30 SO 33 TA Ac ON 37 -2 -0 .0 PE 35 MA ti ID 80 0- 4- 00 RS 40 RE ve IN 15 20 20 N E 21 10 10 FA JA HC 0 MS NE L LY T 0. 1 DR MG UG TA BL ET VE 00 01 03 5 18 30 SO 33 TA Ac NT 17 -2 -0 .0 PE 35 MA ti OL 30 0- 4- 00 RS 42 RE ve IN 68 20 20 N 22 10 10 FA JA HF 0 MS NE A LY T 90 DR MC UG G IN CLARK LE R RA 53 01 03 5 60 30 SO 33 TA Ac NI 74 -2 -0 .0 PE 35 MA ti TI 60 0- 4- 00 RS 43 RE ve DI 25 20 20 N NE 30 10 10 FA JA 5 MS NE 15 LY [address] UG TA BL ET 00 01 03 5 30 30 SO 33 TA Ac 00 -2 -0 .0 PE 35 MA ti 60 0- 4- 00 RS 44 RE ve 11 20 20 N 73 10 10 FA JA 1 MS NE LY T DR UG AZ 64 01 02 00 6. [address] Ac IT 67 -2 -1 00 PE 43 ON ti HR 90 9- 1- 0 RS 15 E ve OM 96 20 20 DI YC 10 10 10 FA XI IN 5 MS E LY D [address] MG UG TA BL ET DE 60 01 02 00 [address] Ac XA 43 -2 -1 .0 PE 43 ON ti ME 20 9- 1- 00 RS 17 E ve TH 46 20 20 DI 60 10 10 FA XI ON 8 MS E E LY D 0. 5 DR MG UG /5 ML EL X BA 00 07 25 00 [address] Ac NO 90 -2 -1 0. PE 43 ON ti PH 45 9- - 00 RS 17 E ve EN 17 20 20 0 DI 41 10 10 FA XI 12 6 MS E .[address] /5 UG ML SO CHAVEZ TI ON [place] 00 07 25 00 [address] 60 -2 -1 .0 PE 43 ON ti AT 31 9- 1- 00 RS 17 E ve IN 48 20 20 DI 15 10 10 FA XI 10 8 MS E 0, LY D [address] UN UG IT /M L BUNN SP CH 00 07 25 00 [address] Ac ER 60 -2 -1 8. PE 43 ON ti AT 31 9- 1- 00 RS 16 E ve US 07 20 20 0 DI SI 55 10 10 FA XI N 4 MS E AC LY D SY DR RU UG P NA 68 01 00 60 30 SO 33 TA Ac ND 46 -1 -2 .0 PE 30 MA ti OX 20 4- 8- 00 RS 98 RE ve EN 19 20 20 N 00 10 10 FA JA 50 5 MS NE [address] TA UG BL ET TI 00 07 24 00 40 14 SO 33 TA Ac ZA 18 -1 -2 .0 PE 30 MA ti NI 50 4- 8- 00 RS 99 RE ve DI 03 20 20 N NE 45 10 10 FA JA 1 MS NE HC LY T L 2 DR MG UG TA BL ET CL 00 07 24 99 60 30 SO 33 TA Ac ON 37 -2 -2 .0 PE 35 MA ti ID 80 0- 8- 00 RS 40 RE ve IN 15 20 20 N E 21 10 10 FA JA HC 0 MS NE L LY T 0. 1 DR MG UG TA BL ET RA 53 01 01 00 60 30 SO 33 TA Ac NI 74 -2 -2 .0 PE 35 MA ti TI 60 0- 8- 00 RS 43 RE ve DI 25 20 20 N NE 30 10 10 FA JA 5 MS NE 15 LY [address] UG TA BL ET CO 50 01 01 00 30 30 SO 33 TA Ac NC 45 -2 -2 .0 PE 35 MA ti ER 80 0- 8- 00 RS 41 RE ve TA 58 20 20 N 60 10 10 FA JA ER 1 MS NE LY T 36 DR MG UG TA BL ET TO 68 01 01 00 70 28 SO 33 TA Ac PI 46 -1 -2 .0 PE 30 MA ti RA 20 4- 8- 00 RS 97 RE ve MA 10 20 20 N TE 86 10 10 FA JA 0 MS NE [address] UG TA BL ET VE 00 01 00 8. 15 SO 33 TA Ac NT 17 -2 -2 00 PE 35 MA ti OL 30 0- 8- 0 RS 42 RE ve IN 68 20 20 N 22 10 10 FA JA HF 4 MS NE A LY T 90 DR MC UG G IN CLARK LE R 00 01 01 00 30 30 SO 33 TA Ac 00 -2 -2 .0 PE 35 MA ti 60 0- 8- 00 RS 44 RE ve 11 20 20 N 73 10 10 FA JA 1 MS NE LY T DR UG ND 00 10 01 00 6. 15 SO 32 TA Ac OV 08 -0 -1 70 PE 44 MA ti EN 51 5- 4- 0 RS 26 RE ve TI 13 20 20 N L 20 09 10 FA JA HF 1 MS NE A LY T 90 DR MC UG G IN CLARK LE R ND 00 11 12 00 12 6 SO 32 TA Ac ED 59 -3 -1 .0 PE 93 MA ti NI 15 0- 7- 00 RS 37 RE ve SO 44 20 20 N NE 20 09 09 FA JA 5 MS NE [address] UG TA BL ET 00 11 12 00 56 7 SO 32 TA Ac 07 -3 -1 .0 PE 93 MA ti 46 0- 7- 00 RS 36 RE ve 30 20 20 N 41 09 09 FA JA 3 MS NE LY T DR UG BU 00 11 12 00 12 10 SO 32 TA Ac TA 14 -3 -1 0. PE 93 MA ti LB 31 0- 7- 00 RS 35 RE ve -A 78 20 20 0 N CE 70 09 09 FA JA TA 1 MS NE MS LY T N- CA DR FF UG 50 -3 25 -4 0 ME 00 08 12 01 1. 90 SO [address] 70 -2 -1 00 PE 06 MA ti OX 36 4- 7- 0 RS 97 RE ve YP 80 20 20 N RO 10 09 09 FA JA GE [address] LY T ER ON DR E UG 15 0 MG /M L AM 00 11 11 00 20 10 SO 32 TA Ac OX 14 -0 -1 .0 PE 73 MA ti IC 39 5- 9- 00 RS 25 RE ve IL 95 20 20 N LI 10 09 09 FA JA N 1 MS NE [address] LY T [address] UG TA BL ET ND 00 11 11 00 12 6 SO 32 TA Ac OM 60 -0 -1 0. PE 68 MA ti ET 31 2- 9- 00 RS 67 RE ve CLARK 58 20 20 0 N ZI 55 09 09 FA JA NE 8 MS NE -C LY T OD EI DR NE UG SY RU P CL 00 10 11 00 20 10 SO 32 TA Ac AR 78 -2 -0 .0 PE 67 MA ti IT 11 9- 5- 00 RS 04 RE ve HR 96 20 20 N OM 26 09 09 FA JA YC 0 MS NE IN LY T 50 DR 0 UG MG TA BL ET 66 10 11 00 11 12 SO 32 TA Ac 99 -2 -0 8. PE 67 MA ti 20 9- 5- 00 RS 05 RE ve 22 20 20 0 N 00 09 09 FA JA 4 MS NE LY T DR UG PO 51 10 10 00 52 30 SO 32 TA Ac LY 99 -0 -2 7. PE 44 MA ti ET 10 5- 2- 00 RS 29 RE ve HY 45 20 20 0 N LE 75 09 09 FA JA NE 7 MS NE LY T GL YC DR OL UG 33 50 PO WD ND 00 09 10 01 6. 15 SO 32 TA Ac OV 08 -0 -2 70 PE 21 MA ti EN 51 9- 2- 0 RS 86 RE ve TI 13 20 20 N L 20 09 09 FA JA HF 1 MS NE A LY T 90 DR MC UG G IN CLARK LE R CL 00 09 10 00 60 30 SO 32 TA Ac ON 37 -0 -2 .0 PE 21 MA ti ID 80 9- 2- 00 RS 90 RE ve IN 15 20 20 N E 21 09 09 FA JA HC 0 MS NE L LY T 0. 1 DR MG UG TA BL ET CO 50 10 10 00 30 30 SO 32 TA Ac NC 45 -0 -2 .0 PE 44 MA ti ER 80 5- 2- 00 RS 30 RE ve TA 58 20 20 N 60 09 09 FA JA ER 1 MS NE LY T 36 DR MG UG TA BL ET 49 10 10 00 30 10 SO 32 TA Ac 88 -0 -2 .0 PE 44 MA ti 40 5- 2- 00 RS 31 RE ve 77 20 20 N 90 09 09 FA JA 5 MS NE LY T DR UG AZ 64 10 10 00 6. 5 SO 32 TA Ac IT 67 -0 -2 00 PE 44 MA ti HR 90 5- 2- 0 RS 25 RE ve OM 96 20 20 N YC 10 09 09 FA JA IN 5 MS NE LY T [address] MG UG TA BL ET 00 09 10 00 30 4 SO 32 SC Ac 59 -2 -0 .0 PE 31 HU ti 10 1- 8- 00 RS 61 LS ve 34 20 20 TA 90 09 09 FA D 5 MS CA LY MP BE DR LL UG K 60 09 09 00 60 30 SO 32 TA Ac 50 -0 -2 .0 PE 21 MA ti 50 9- 4- 00 RS 89 RE ve 02 20 20 N 50 09 09 FA JA 8 MS NE LY T DR UG SP 00 09 09 00 30 30 SO 32 TA Ac IR 60 -0 -2 .0 PE 21 MA ti ON 35 9- 4- 00 RS 87 RE ve OL 76 20 20 N AC 42 09 09 FA JA TO 1 MS NE NE LY T 50 DR UG MG TA BL ET AM 00 09 00 20 10 SO 32 TA Ac OX 14 -0 -2 .0 PE 21 MA ti IC 39 9- 4- 00 RS 82 RE ve IL 95 20 20 N LI 10 09 09 FA JA N 1 MS NE 87 LY T [address] UG TA BL ET 00 09 09 00 10 3 SO 32 TA Ac 11 -0 -2 .0 PE 21 MA ti 51 9- 4- 00 RS 83 RE ve 04 20 20 N 10 09 09 FA JA 3 MS NE LY T DR UG ON 55 09 09 00 12 30 SO 32 TA Ac DA 11 -1 -2 .0 PE 25 MA ti NS 10 3- 4- 00 RS 92 RE ve ET 15 20 20 N RO 33 09 09 FA JA N 0 MS NE HC LY T L 4 DR MG UG TA BL ET 00 09 09 00 20 20 SO 32 TA Ac 09 -0 -2 .0 PE 21 MA ti 51 9- 4- 00 RS 84 RE ve 29 20 20 N 00 09 09 FA JA 6 MS NE LY T DR UG ND 00 09 09 00 6. 15 SO 32 TA Ac OV 08 -0 -2 70 PE 21 MA ti EN 51 9- 4- 0 RS 86 RE ve TI 13 20 20 N L 20 09 09 FA JA HF 1 MS NE A LY T 90 MC UG G IN CLARK LE R AC 00 09 09 00 20 2 SO 32 TA Ac ET 40 -1 -2 .0 PE 25 MA ti AM 60 3- 4- 00 RS 75 RE ve IN 48 20 20 N OP 41 09 09 FA JA HE 0 MS NE N- LY T CO D DR #3 UG TA BL ET AM 66 09 09 00 20 10 SO 32 TA Ac OX 68 -1 -2 .0 PE 27 MA ti -C 51 5- 4- 00 RS 14 RE ve LA 00 20 20 N V 10 09 09 FA JA 87 1 MS NE 5- LY T [address] MG UG TA BL ET FL 60 09 09 00 16 30 SO 32 TA Ac UT 50 -0 -2 .0 PE 21 MA ti IC 50 9- 4- 00 RS 88 RE ve 82 20 20 N ON 90 09 09 FA JA E 1 MS NE ND LY T OP 50 UG MC G SP RA Y KE 00 09 09 00 20 5 SO 32 TA Ac TO 37 -1 -2 .0 PE 25 MA ti RO 81 4- 4- 00 RS 93 RE ve LA 13 20 20 N C 40 09 09 FA JA 10 1 MS NE LY T MG DR TA UG BL ET AD 00 09 09 00 60 30 SO 32 TA Ac VA 17 -0 -2 .0 PE 21 MA ti IR 30 9- 4- 00 RS 85 RE ve 69 20 20 N 25 60 09 09 FA JA 0- 0 MS NE 50 LY T DI SK UG US ME 00 08 09 00 5. 90 SO [address] 70 -2 -1 00 PE 06 MA ti OX 36 4- 0- 0 RS 97 RE ve YP 80 20 20 N RO 10 09 09 FA JA GE [address] LY T ER ON E UG 15 0 MG /M L CL 00 08 08 00 60 30 SO 32 TA Ac ON 37 -1 -2 .0 PE 01 MA ti ID 80 7- 7- 00 RS 17 RE ve IN 15 20 20 N E 21 09 09 FA JA HC 0 MS NE L LY T 0. 1 DR MG UG TA BL ET CO 50 08 08 00 30 30 SO 32 TA Ac NC 45 -1 -2 .0 PE 01 MA ti ER 80 7- 7- 00 RS 15 RE ve TA 58 20 20 N 60 09 09 FA JA ER 1 MS NE LY T 36 DR MG UG TA BL ET AM 00 08 08 00 20 10 SO 32 TA Ac OX 14 -1 -2 .0 PE 01 MA ti IC 39 7- 7- 00 RS 18 RE ve IL 95 20 20 N LI 10 09 09 FA JA N 1 MS NE 87 LY T [address] UG TA BL ET 63 08 08 00 20 10 SO 32 TA Ac 82 -1 -2 .0 PE 02 MA ti 40 8- 7- 00 RS 36 RE ve 05 20 20 N 64 09 09 FA JA 0 MS NE LY T DR UG 64 08 08 00 20 10 SO 32 TA Ac 37 -1 -2 .0 PE 01 MA ti 60 7- 7- 00 RS 20 RE ve 54 20 20 N 40 09 09 FA JA 1 MS NE LY T DR UG SP 00 08 08 00 [address] Ac IR 60 -1 -2 .0 PE 00 ON ti ON 35 4- 7- 00 RS 30 E ve OL 76 20 20 DI AC 42 09 09 FA XI TO 1 MS E NE LY D 50 DR UG MG TA BL ET 00 08 08 00 [address] Ac 17 -1 -2 .0 PE 00 ON ti 22 4- 7- 00 RS 29 E ve 98 20 20 DI 57 09 09 FA XI 0 MS E LY D DR UG 00 07 00 30 3 SO 31 SC Ac 59 -1 -3 .0 PE 79 HU ti 10 5- 0- 00 RS 39 LS ve 34 20 20 TA 90 09 09 FA D 5 MS CA LY MP BE DR JENNIFER UG K ND 00 06 07 01 12 4 SO 31 TA Ac ED 59 -1 -1 .0 PE 60 MA ti NI 15 7- 6- 00 RS 18 RE ve SO 44 20 20 N NE 20 09 09 FA JA 5 MS NE [address] UG TA BL ET 00 07 07 00 30 3 SO 31 SC Ac 59 -0 -1 .0 PE 72 HU ti 10 3- 6- 00 RS 29 LS ve 34 20 20 TA 90 09 09 FA D 5 MS CA LY MP BE DR LL UG K BUNN 00 07 07 00 [address] Ac LF 60 -0 -1 .0 PE 70 ON ti AM 35 1- 6- 00 RS 06 E ve ET 78 20 20 DI HO 12 09 09 FA XI XA 8 MS E ZO LY D LE -T DR MP UG DS TA BL ET NU 00 06 07 00 1. 28 SO 31 TA Ac VA 05 - - 00 PE 60 MA ti RI 20 7- 6- 0 RS 21 RE ve NG 27 20 20 N 30 09 09 FA JA VA 3 MS NE GI LY T NA L DR RI UG NG 00 07 07 00 20 5 SO 31 TA Ac 59 -0 -1 .0 PE 70 MA ti 10 1- 6- 00 RS 07 RE ve 34 20 20 N 90 09 09 FA JA 5 MS NE LY T DR UG NA 68 06 07 00 60 30 SO 31 TA Ac ND 46 -1 -0 .0 PE 60 MA ti OX 20 7- 2- 00 RS 19 RE ve EN 19 20 20 N 00 09 09 FA JA 50 5 MS NE [address] TA UG BL ET FL 60 06 07 00 16 30 SO 31 TA Ac UT 50 -1 -0 .0 PE 60 MA ti IC 50 7- 2- 00 RS 24 RE ve 82 20 20 N ON 90 09 09 FA JA E 1 MS NE ND LY T OP DR 50 UG MC G SP RA Y 00 07 00 80 10 SO 31 TA Ac 78 -1 -0 .0 PE 60 MA ti 12 7- 2- 00 RS 17 RE ve 11 20 20 N 20 09 09 FA JA 1 MS NE LY T DR UG ND 00 07 00 12 4 SO 31 TA Ac ED 59 -1 -0 .0 PE 60 MA ti NI 15 7- 2- 00 RS 18 RE ve SO 44 20 20 N NE 20 09 09 FA JA 5 MS NE [address] UG TA BL ET SP 00 06 07 00 30 30 SO 31 TA Ac IR 60 -1 -0 .0 PE 60 MA ti ON 35 7- 2- 00 RS 20 RE ve OL 76 20 20 N AC 42 09 09 FA JA TO 1 MS NE NE LY T 50 DR UG MG TA BL ET AD 00 06 07 00 60 30 SO 31 TA Ac VA 17 -1 -0 .0 PE 60 MA ti IR 30 7- 2- 00 RS 25 RE ve 69 20 20 N 25 60 09 09 FA JA 0- 0 MS NE [address] SK UG US ME 57 06 07 00 12 30 SO 31 TA Ac TF 66 -1 -0 0. PE 60 MA ti OR 40 7- 2- 00 RS 23 RE ve MS 39 20 20 0 N N 75 09 09 FA JA HC 8 MS NE L LY T [address] MG UG TA BL ET 00 06 07 00 30 30 SO 31 TA Ac 00 -1 -0 .0 PE 60 MA ti 60 7- 2- 00 RS 26 RE ve 11 20 20 N 73 09 09 FA JA 1 MS NE LY T DR UG RA 53 06 07 00 60 30 SO 31 TA Ac NI 74 -1 -0 .0 PE 60 MA ti TI 60 7- 2- 00 RS 22 RE ve DI 25 20 20 N NE 30 09 09 FA JA 5 MS NE 15 LY T [address] UG TA BL ET ND 00 06 07 00 6. 15 SO 31 TA Ac OV 08 -1 -0 70 PE 60 MA ti EN 51 7- 2- 0 RS 27 RE ve TI 13 20 20 N L 20 09 09 FA JA HF 1 MS NE A LY T 90 DR WILFREDO UG G IN [place] LE R NU 00 05 06 00 1. 28 SO 31 ME Ac VA 05 -3 -1 00 PE 47 ES ti RI 20 0- 8- 0 RS 08 E ve NG [address] 30 09 09 FA EP VA 1 MS HE GI LY N NA P L DR RI UG NG CE 00 05 06 00 56 14 SO 31 ME Ac PH 14 -3 -1 .0 PE 47 ES ti AL 39 0- 8- 00 RS 09 E ve EX [address] IN 70 09 09 FA EP 5 MS HE 50 LY N [address] UG CA PS UL E MU 45 05 05 00 22 10 SO 31 TA Ac PI 80 -0 -2 .0 PE 27 MA ti RO 20 4- 1- 00 RS 71 RE ve CI 11 20 20 N N 22 09 09 FA JA 2% 2 MS NE LY T OI NT DR ME UG NT HY 00 05 05 00 30 10 SO [address] 16 -0 -2 .0 PE 27 MA ti OC 80 4- 1- 00 RS 71 RE ve OR 14 20 20 N TI 63 09 09 FA JA SO 0 MS NE NE LY T 2. DR 5% UG OI NT ME NT ZI 00 05 05 00 30 10 SO 31 TA Ac NC 16 -0 -2 .0 PE 27 MA ti 80 4- 1- 00 RS 71 RE ve OX 06 20 20 N ID 23 09 09 FA JA E 1 MS NE 20 LY T % OI DR NT UG ME NT NY 45 05 05 00 30 10 SO [address] 80 -0 -2 .0 PE 27 MA ti AT 20 4- 1- 00 RS 71 RE ve IN 04 20 20 N 81 09 09 FA JA 10 1 MS NE 0, LY T [address] UN UG IT S/ GM OI NT ME 57 05 05 00 12 30 SO 31 TA Ac TF 66 -0 -2 0. PE 27 MA ti OR 40 4- 1- 00 RS 73 RE ve MS 39 20 20 0 N N 75 09 09 FA JA HC 8 MS NE L LY T [address] MG UG TA BL ET 00 05 05 00 3. 28 SO 31 TA Ac 06 -0 -2 00 PE 27 MA ti 21 4- 1- 0 RS 72 RE ve 92 20 20 N 01 09 09 FA JA 5 MS NE LY T DR UG AM 66 05 05 00 20 10 SO 31 TA Ac OX 68 -0 -2 .0 PE 27 MA ti -C 51 4- 1- 00 RS 70 RE ve LA 00 20 20 N V 10 09 09 FA JA 87 1 MS NE 5- LY T [address] MG UG TA BL ET 00 12 02 01 3. 28 SO 30 TA Ac 06 -3 -2 00 PE 22 MA ti 21 0- 6- 0 RS 50 RE ve 92 20 20 N 01 08 09 FA JA 5 MS NE LY T DR UG ND 00 11 02 00 6. 15 SO 29 TA Ac OV 08 -1 -2 70 PE 80 MA ti EN 51 1- 6- 0 RS 32 RE ve TI 13 20 20 N L 20 08 09 FA JA HF 1 MS NE A LY T 90 DR MC UG G IN [place] LE R FL 60 12 01 00 16 30 SO 30 TA Ac UT 50 -3 -1 .0 PE 22 MA ti IC 50 0- 5- 00 RS 48 RE ve 82 20 20 N ON 90 08 09 FA JA E 1 MS NE ND LY T OP DR 50 UG MC G SP RA Y 66 01 01 00 30 15 SO 30 TA Ac 99 -0 -1 .0 PE 27 MA ti 20 6- 5- 00 RS 41 RE ve 23 20 20 N 56 09 09 FA JA 0 MS NE LY T DR UG AM 00 [...] N 01 08 09 FA JA 5 MS NE LY T DR UG 00 12 01 00 30 30 SO 30 TA Ac 17 -3 -1 .0 PE 22 MA ti 22 0- 5- 00 RS 49 RE ve 98 20 20 N 57 08 09 FA JA 0 MS NE LY T DR UG CL 00 11 11 00 14 7 SO 29 TA Ac AR 78 -1 -2 .0 PE 80 MA ti IT 11 1- 0- 00 RS 39 RE ve HR 96 20 20 N OM 26 08 08 FA JA YC 0 MS NE IN LY T 50 DR 0 UG MG TA BL ET 00 11 11 00 12 30 SO 29 TA Ac 40 -1 -2 0. PE 80 MA ti 62 1- 0- 00 RS 41 RE ve 02 20 20 0 N 81 08 08 FA JA 0 MS NE LY T DR UG ND 00 08 11 01 6. 30 SO 29 TA Ac OV 08 -0 -2 70 PE 02 MA ti EN 51 7- 0- 0 RS 74 RE ve TI 13 20 20 N L 20 08 08 FA JA HF 1 MS NE A LY T 90 DR MC UG G IN [place]ARK LE R AD 00 08 11 01 60 30 SO 29 TA Ac VA 17 -0 -2 .0 PE 02 MA ti IR 30 7- 0- 00 RS 72 RE ve 69 20 20 N 25 60 08 08 FA JA 0- 0 MS NE [address] SK UG US BE 68 11 11 00 40 13 SO 29 TA Ac NZ 38 -1 -2 .0 PE 80 MA ti ON 20 1- 0- 00 RS 35 RE ve AT 24 20 20 N AT 80 08 08 FA JA E 1 MS NE 20 LY [address] UG CA PS UL E 00 08 11 01 3. 30 SO 29 TA Ac 06 -0 -2 00 PE 02 MA ti 21 7- 0- 0 RS 75 RE ve 92 20 20 N 01 08 08 FA JA 5 MS NE LY T DR UG 00 11 11 00 21 6 SO 29 TA Ac 55 -1 -2 .0 PE 80 MA ti 50 1- 0- 00 RS 37 RE ve 30 20 20 N 13 08 08 FA JA 8 MS NE LY T DR UG 00 08 11 01 30 30 SO 29 TA Ac 00 -0 -2 .0 PE 02 MA ti 60 7- 0- 00 RS 71 RE ve 11 20 20 N 73 08 08 FA JA 1 MS NE LY T DR UG ET 60 11 11 00 16 4 SO 29 AL Ac OD 50 -0 -2 .0 PE 74 LE ti OL 50 5- 0- 00 RS 41 N ve AC 04 20 20 BR 10 08 08 FA AN 40 1 MS DO 0 LY N MG I DR TA UG BL ET PE 00 11 11 00 28 7 SO 29 AL Ac NI 78 -0 -2 .0 PE 74 LE ti CI 11 5- 0- 00 RS 40 N ve LL 65 20 20 BR IN 51 08 08 FA AN 0 MS DO VK LY N I 50 DR 0 UG MG TA BL ET 64 08 11 01 60 30 SO 29 TA Ac 67 -0 -2 .0 PE 02 MA ti 90 7- 0- 00 RS 73 RE ve 90 20 20 N 60 08 08 FA JA 3 MS NE LY T DR UG AM 00 09 09 00 24 8 SO 29 No Ac OX 09 -0 -1 .0 PE 25 t ti -C 32 5- 1- 00 RS 87 Av ve LA 27 20 20 ai V 43 08 08 FA la 50 4 MS bl 0- LY e [address] MG UG TA BL ET 00 09 09 00 10 3 SO 29 No Ac 60 -0 -1 .0 PE 25 t ti 35 5- 1- 00 RS 88 Av ve 14 20 20 ai 23 08 08 FA la 2 MS bl LY e DR UG AD 00 08 08 00 60 30 SO 29 No Ac VA 17 -0 -1 .0 PE 02 t ti IR 30 7- 4- 00 RS 72 Av ve 69 20 20 ai 25 60 08 08 FA la 0- 0 MS bl [address] SK UG US 49 08 08 00 60 30 SO 29 No Ac 88 -0 -1 .0 PE 02 t ti 40 7- 4- 00 RS 73 Av ve 54 20 20 ai 40 08 08 FA la 5 MS bl LY e DR UG 63 08 08 00 60 30 SO 29 No Ac 30 -0 -1 .0 PE 02 t ti 40 7- 4- 00 RS 77 Av ve 65 20 20 ai 70 08 08 FA la 5 MS bl LY e DR UG ND 00 08 08 00 6. 30 SO 29 No Ac OV 08 -0 -1 70 PE 02 t ti EN 51 7- 4- 0 RS 74 Av ve TI 13 20 20 ai L 20 08 08 FA la HF 1 MS bl A LY e 90 DR WILFREDO UG G IN [place] LE R 00 08 08 00 30 30 SO 29 No Ac 00 -0 -1 .0 PE 02 t ti 60 7- 4- 00 RS 71 Av ve 11 20 20 ai 73 08 08 FA la 1 MS bl LY e DR UG ME 68 08 08 00 60 30 SO 29 No Ac TF 38 -0 -1 .0 PE 02 t ti OR 20 7- 4- 00 RS 76 Av ve MS 02 20 20 ai N 81 08 08 FA la HC 0 MS bl L LY e [address] MG UG TA BL ET 00 08 08 00 3. 30 SO 29 No Ac 06 -0 -1 00 PE 02 t ti 21 7- 4- 0 RS 75 Av ve 92 20 20 ai 01 08 08 FA la 5 MS bl LY e DR UG ND 00 06 07 00 15 5 SO 28 No Ac ED 59 -1 -0 .0 PE 61 t ti NI 15 0- 3- 00 RS 59 Av ve SO 44 20 20 ai NE 20 08 08 FA la 5 MS bl [address] UG TA BL ET LO 00 06 07 00 20 6 SO 28 No Ac PE 37 -1 -0 .0 PE 65 t ti RA 82 7- 3- 00 RS 97 Av ve MS 10 20 20 ai DE 00 08 08 FA la 2 1 MS bl LY e MG DR CA UG PS UL E ND 68 06 07 00 20 5 SO 28 No Ac OM 38 -1 -0 .0 PE 65 t ti ET 20 7- 3- 00 RS 96 Av ve CLARK 04 20 20 ai ZI 11 08 08 FA la NE 0 MS bl LY e 25 DR MG UG TA BL ET BA 00 06 07 00 30 15 SO [address] 02 -1 -0 .0 PE 61 t ti RO 91 0- 3- 00 RS 58 Av ve BA 52 20 20 ai N 72 08 08 FA la 2% 5 MS bl LY e CR EA DR M UG AC 00 05 06 00 12 3 SO 28 No Ac ET 40 -3 -0 .0 PE 53 t ti AM 60 0- 5- 00 RS 61 Av ve IN 48 20 20 ai OP 41 08 08 FA la HE 0 MS bl N- LY e CO D DR #3 UG TA BL ET 60 05 06 00 24 6 SO 28 No Ac 25 -1 -0 0. PE 44 t ti 80 9- 5- 00 RS 93 Av ve 23 20 20 0 ai 91 08 08 FA la 6 MS bl LY e DR UG AM 00 05 06 00 30 10 SO 28 No Ac OX 09 -1 -0 .0 PE 44 t ti -C 32 9- 5- 00 RS 92 Av ve LA 27 20 20 ai V 43 08 08 FA la 50 4 MS bl 0- LY e [address] MG UG TA BL ET ND 00 02 04 02 13 30 SO 27 No Ac OV 08 -0 -2 .4 PE 49 t ti EN 51 5- 4- 00 RS 85 Av ve TI 13 20 20 ai L 20 08 08 FA la HF 1 MS bl A LY e 90 DR MC UG G IN [place] LE R CY 59 04 04 00 30 10 SO 28 No Ac CL 74 -1 -2 .0 PE 18 t ti OB 60 7- 4- 00 RS 98 Av ve EN 17 20 20 ai ZA 71 08 08 FA la ND 0 MS bl IN LY e E 10 DR UG MG TA BL ET 49 04 04 00 30 10 SO 28 No Ac 88 -1 -2 .0 PE 18 t ti 40 7- 4- 00 RS 99 Av ve 77 20 20 ai 90 08 08 FA la 5 MS bl LY e DR UG ME 68 04 04 00 30 30 SO 28 No Ac TF 38 -1 -2 .0 PE 18 t ti OR 20 7- 4- 00 RS 97 Av ve MS 02 20 20 ai N 81 08 08 FA la HC 0 MS bl L LY e [address] MG UG TA BL ET AD 00 02 04 01 60 30 SO 27 No Ac VA 17 -0 -1 .0 PE 49 t ti IR 30 5- 7- 00 RS 87 Av ve 69 20 20 ai 25 60 08 08 FA la 0- 0 MS bl 50 LY e DI SK UG US 00 01 04 01 3. 28 SO 27 No Ac 06 -2 -1 00 PE 41 t ti 21 8- 7- 0 RS 25 Av ve 92 20 20 ai 01 08 08 FA la 5 MS bl LY e DR FOFANA 63 03 04 00 21 7 SO 27 No Ac 30 -1 -1 .0 PE 89 t ti 40 4- 7- 00 RS 56 Av ve 65 20 20 ai 50 08 08 FA la 5 MS bl LY e DR FOFANA 00 03 04 00 1. 1 SO 27 No Ac 59 -1 -1 00 PE 88 t ti 10 3- 7- 0 RS 49 Av ve 36 20 20 ai 50 08 08 FA la 1 MS bl LY e DR FOFANA 49 03 04 00 30 7 SO 27 No Ac 88 -1 -1 .0 PE 89 t ti 40 4- 7- 00 RS 55 Av ve 77 20 20 ai 90 08 08 FA la 5 MS bl LY e DR FOFANA 53 03 04 00 80 8 SO 27 No Ac 01 -1 -1 .0 PE 84 t ti 40 0- 7- 00 RS 45 Av ve 54 20 20 ai 86 08 08 FA la 7 MS bl LY e DR FOFANA 00 03 04 00 21 6 SO 27 No Ac 55 -1 -1 .0 PE 84 t ti 50 0- 7- 00 RS 46 Av ve 30 20 20 ai 13 08 08 FA la 8 MS bl LY e DR FOFANA 63 03 04 00 40 10 SO 27 No Ac 30 -1 -1 .0 PE 84 t ti 40 0- 7- 00 RS 47 Av ve 72 20 20 ai 56 08 08 FA la 0 MS bl LY e DR FOFANA 00 03 04 00 24 6 SO 27 No Ac 59 -1 -1 .0 PE 89 t ti 10 4- 7- 00 RS 54 Av ve 54 20 20 ai 00 08 08 FA la 5 MS bl LY e DR FOFANA 00 02 04 01 30 30 SO 27 No Ac 00 -0 -1 .0 PE 49 t ti 60 5- 7- 00 RS 86 Av ve 11 20 20 ai 73 08 08 FA la 1 MS bl LY e DR FOFANA ND 00 02 04 01 13 30 SO 27 No Ac OV 08 -0 -1 .4 PE 49 t ti EN 51 5- 7- 00 RS 85 Av ve TI 13 20 20 ai L 20 08 08 FA la HF 1 MS bl A LY e 90 DR SMILEY G IN [place] LE R ND 00 02 03 00 13 30 SO 27 No Ac OV 08 -0 -2 .4 PE 49 t ti EN 51 5- 6- 00 RS 85 Av ve TI 13 20 20 ai L 20 08 08 FA la HF 1 MS bl A LY e 90 DR SMILEY G IN CALRK LE R 00 02 03 00 30 30 SO 27 No Ac 00 -0 -2 .0 PE 49 t ti 60 5- 6- 00 RS 86 Av ve 11 20 20 ai 73 08 08 FA la 1 MS bl LY e DR BRIGIDO 53 02 03 00 12 12 SO 27 No Ac 01 -0 -2 0. PE 49 t ti 40 5- 6- 00 RS 84 Av ve 54 20 20 0 ai 86 08 08 FA la 7 MS bl LY e DR UG AD 00 02 03 00 60 30 SO 27 No Ac VA 17 -0 -2 .0 PE 49 t ti IR 30 5- 6- 00 RS 87 Av ve 69 20 20 ai 25 60 08 08 FA la 0- 0 MS bl [address] RINCON UG US 00 01 03 00 3. 28 SO 27 No Ac 06 -2 -2 00 PE 41 t ti 21 8- 6- 0 RS 25 Av ve 92 20 20 ai 01 08 08 FA la 5 MS bl LY e DR FOFANA Procedures Procedure DOS Code Location Performer Comment [facility] 741 MARYANN WOLF CERVICAL 4 [facility] INC SE[facility] LAPAROSCO 5123 MARY[address] WOLF PIC 9 [facility] CHOLECYST INC INC ECTOMY EXCISION 8621 MARYANN WOLF OF 9 [facility] PILONIDAL INC INC CYST OR SINUS Encounters Encounter Start End Date Code Location Performer Type Date [facility] KATERINE - 7 7 [facility] MARYANN - 6 6 [facility] JONNY - 6 6 [facility]ON[facility] - 6 6 [facility] JONNY - 6 6 [facility] MARYANN - 5 5 [facility] KATERINE - 5 5 [facility] RAEON - 5 5 [facility]OUR[facility] - 5 5 [facility] MARYANN - 4 4 [facility] INPATIENT [facility] CAIT - 1 1 [facility] CAIT [facility] 1 1 [facility] MARYANN - 0 0 [facility] MARYANN [facility] 0 0 [facility] UNIVERSIT - 0 0 [facility] CAIT - 0 0 [facility] CAIT [facility] 0 0 [facility] UNIVERSIT - 0 0 [facility] CAIT - 0 0 [facility] CAIT - 0 0 [facility] CAIT - 0 0 [facility] CAIT - 0 0 [facility] CAIT [facility] 0 0 [facility] CAIT - 0 0 [facility] MARYANN - 9 9 [facility] MARYANN - 9 9 [facility] 9 9 [facility] CAIT [facility] 9 9 [facility] [place] - 9 9 [facility] CAIT [facility] 9 9 [facility] MARYANN - 9 9 [facility] MARYANN - 9 9 [facility] CAIT - 9 9 [facility] CAIT - 8 8 [facility]
--- OUTSIDE RECORDS SUMMARY | 2017-06-08 19:05 | External Medical Summary Rpt | CCD ---
Author Author , MICHELLE MARTINEZ Address Unknown Phone [email or web address] Immunization Name Date Rout CVX Reac Dose Comm Prov Is Faci e tion ent ider Refu lity Give sed n Hep 03-2 8 999 Hist H191 No H191 B, 4-19 oric ped/ 97 al adol Info rmat ion - Sour ce Unsp ecif ied Hep 10-0 8 999 Hist H191 No H191 B, 9-19 oric ped/ 96 al adol Info rmat ion - Sour ce Unsp ecif ied DTaP 09-0 107 999 Hist H191 No H191 , UF 5-19 oric 96 al Info rmat ion - Sour ce Unsp ecif ied MMR 09-0 3 999 Hist H191 No H191 5-19 oric 96 al Info rmat ion - Sour ce Unsp ecif ied Norberto 09-0 2 999 Hist H191 No H191 o-OP 5-19 oric V 96 al Info rmat ion - Sour ce Unsp ecif ied Hep 09-0 8 999 Hist H191 No H191 B, 5-19 oric ped/ 96 al adol Info rmat ion - Sour ce Unsp ecif ied
--- OUTSIDE RECORDS SUMMARY | 2017-06-08 19:05 | External Medical Summary Rpt | CCD ---
Author Author , MICHELLE MARTINEZ Address Unknown Phone [email or web address] Immunization Name Date Rout CVX Reac Dose [...]
--- OUTSIDE RECORDS SUMMARY | 2017-06-08 19:05 | External Medical Summary Rpt ---
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 tion in tion in tion in tion in 1:45 PM source source source source data data data data ETHNICI WHITE, No No No No Dec 2 TY NON-HIS informa informa informa informa 2015 PANIC tion in tion in tion in tion in 1:45 PM source source source source data data data data KIT 12-31-1 No No No No Dec 2 EXPIRAT 5 informa informa informa informa 2015 ION tion in tion in tion in tion in 1:45 PM DATE source source source source data data data data SYMPTOM NO No No No No Dec 2 S informa informa informa informa 2015 tion in tion in tion in tion in 1:45 PM source source source source data data data data REASON REVISIT No No No No Dec 2 FOR /ANNUAL informa informa informa informa 2015 REQUEST FAMILY tion in tion in tion in tion in 1:45 PM source source source source PLANNIN data data data data G VISIT SPECIME URINE No No No No Dec 2 N informa informa informa informa 2015 SOURCE tion in tion in tion in tion in 1:45 PM source source source source data data data data PREGNAN NO No No No No Dec 2 T informa informa informa informa 2015 tion in tion in tion in tion in 1:45 PM source source source source data data data data CHART NA No No No No Dec 2 NUMBER informa informa informa informa 2015 tion in tion in tion in tion in 1:45 PM source source source source data data data data Chlamyd NEGATIV No No No NEGATIV Dec 2 ia E informa informa informa E 2015 trachom tion in tion in tion in RESULT= 1:45 PM atis source source source WITHIN rRNA data data data NORMAL [Presen ce] in LIMITSP Unspeci OSITIVE fied specime RESULT= n by Probe & ABNORMA target LEQUIVO OSCAR amplifi RESULT= cation method INDETER MINATEU NSATISF ACTORY RESULT= INVALID Neisser NEGATIV No No No NEGATIV Slava 2 ia E informa informa informa E 2015 gonorrh tion in tion in tion in RESULT= 1:45 PM oeae source source source WITHIN rRNA data data data NORMAL [Presen ce] in LIMITSP Unspeci OSITIVE fied specime RESULT= n by Probe & ABNORMA target LEQUIVO OSCAR amplifi RESULT= cation method INDETER MINATEU NSATISF ACTORY RESULT= INVALID THE APTIMA COMBO 2 ASSAY IS NOT INTENDE D FOR THE EVALUAT ION OF SUSPECT EDSEXUA L ABUSE OR FOR OTHER MEDICO- LEGAL INDICAT IONS. FOR THOSE PATIENT S FORWHOM A FALSE POSITIV E RESULT MAY HAVE ADVERSE PSYCHO- SOCIAL IMPACT, [facility] MMENDS RETESTI NG.\.br \This report contain s patient informa tion that must be protect ed in accorda nce with the Health Insuran ce Portabi lity and Account ability Act. 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 tion in tion in tion in tion in 1:45 PM source source source source data data data data ETHNICI WHITE, No No No No Dec 2 TY NON-HIS informa informa informa informa 2015 PANIC tion in tion in tion in tion in 1:45 PM source source source source data data data data KIT 12-31-1 No No No No Dec 2 EXPIRAT 5 informa informa informa informa 2015 ION tion in tion in tion in tion in 1:45 PM DATE source source source source data data data data SYMPTOM NO No No No No Dec 2 S informa informa informa informa 2015 tion in tion in tion in tion in 1:45 PM source source source source data data data data REASON REVISIT No No No No Dec 23 FOR /ANNUAL informa informa informa informa 2015 REQUEST FAMILY tion in tion in tion in tion in 1:45 PM source source source source PLANNIN data data data data G VISIT SPECIME URINE No No No No Dec 23 N informa informa informa informa 2015 SOURCE tion in tion in tion in tion in 1:45 PM source source source source data data data data PREGNAN NO No No No No Dec 23 T informa informa informa informa 2015 tion in tion in tion in tion in 1:45 PM source source source source data data data data CHART NA No No No No Dec 23 NUMBER informa informa informa informa 2015 tion in tion in tion in tion in 1:45 PM source source source source data data data data Chlamyd Pending No No No No Dec 23 ia informa informa informa informa 2015 trachom tion in tion in tion in tion in 1:45 PM atis source source source source rRNA data data data data [Presen ce] in Unspeci fied specime n by Probe & target amplifi cation method Neisser Pending No No No \.br\Dec 23 ia informa informa informa is 2015 gonorrh tion in tion in tion in report 1:45 PM oeae source source source contain rRNA data data data s [Presen patient ce] in Unspeci informa fied tion specime that n by must be Probe & target protect ed in amplifi accorda cation nce method with the Health Insuran ce Portabi lity and Account ability Act. CHLAMYDIA AND GONORRHEA TESTING Observa Value Referen Units Interpr Notes Date tion ce etation Range COLLECT RN No No No No November 27 OR informa informa informa informa 2013 tion in tion in tion in tion in 10:00 source source source source AM data data data data ETHNICI WHITE, No No No No November 27 TY NON-HIS informa informa informa informa 2013 PANIC tion in tion in tion in tion in 10:00 source source source source AM data data data data KIT 2012- No No No No November 27 EXPIRAT -31 informa informa informa informa 2013 ION tion in tion in tion in tion in 10:00 DATE source source source source AM data data data data SYMPTOM NO No No No No November 27 S informa informa informa informa 2013 tion in tion in tion in tion in 10:00 source source source source AM data data data data REASON REVISIT No No No No November 27 FOR /ANNUAL informa informa informa informa 2013 REQUEST FAMILY tion in tion in tion in tion in 10:00 source source source source AM PLANNIN data data data data G VISIT SPECIME URINE No No No No November 27 N informa informa informa informa 2013 SOURCE tion in tion in tion in tion in 10:00 source source source source AM data data data data PREGNAN NO No No No No November 27 T informa informa informa informa 2013 tion in tion in tion in tion in 10:00 source source source source AM data data data data CHART 400-45- No No No No November 27 NUMBER [id number] informa informa informa informa 2013 tion in tion in tion in tion in 10:00 source source source source AM data data data data Chlamyd NEGATIV No No No NEGATIV November 27 ia E informa informa informa E 2013 trachom tion in tion in tion in RESULT= 10:00 atis source source source WITHIN AM rRNA data data data NORMAL [Presen ce] in LIMITSP Unspeci OSITIVE fied specime RESULT= n by Probe & ABNORMA target LEQUIVO OSCAR amplifi RESULT= cation method INDETER MINATEU NSATISF ACTORY RESULT= INVALID Neisser NEGATIV No No No NEGATIV November 27 ia E informa informa informa E 2013 gonorrh tion in tion in tion in RESULT= 10:00 oeae source source source WITHIN AM rRNA data data data NORMAL [Presen ce] in LIMITSP Unspeci OSITIVE fied specime RESULT= n by Probe & ABNORMA target LEQUIVO OSCAR amplifi RESULT= cation method INDETER MINATEU NSATISF ACTORY RESULT= INVALID THE APTIMA COMBO 2 ASSAY IS NOT INTENDE D FOR THE EVALUAT ION OF SUSPECT EDSEXUA L ABUSE OR FOR OTHER MEDICO- LEGAL INDICAT IONS. FOR THOSE PATIENT S FORWHOM A FALSE POSITIV E RESULT MAY HAVE ADVERSE PSYCHO- SOCIAL IMPACT, THE [facility] MMENDS RETESTI NG.\.br \This report contain s patient informa tion that must be protect ed in accorda nce with the Health Insuran ce Wesley cason and Account ability Act. CHLAMYDIA AND GONORRHEA TESTING Observa Value Referen Units Interpr Notes Date tion ce etation Range COLLECT RN No No No No November 27 OR informa informa informa informa 2013 tion in tion in tion in tion in 10:00 source source source source AM data data data data ETHNICI WHITE, No No No No November 27 TY NON-HIS informa informa informa informa 2013 PANIC tion in tion in tion in tion in 10:00 source source source source AM data data data data KIT 2012-11 No No No No November 27 EXPIRAT -31 informa informa informa informa 2013 ION tion in tion in tion in tion in 10:00 DATE source source source source AM data data data data SYMPTOM NO No No No No November 27 S informa informa informa informa 2013 tion in tion in tion in tion in 10:00 source source source source AM data data data data REASON REVISIT No No No No November 27 FOR /ANNUAL informa informa informa informa 2013 REQUEST FAMILY tion in tion in tion in tion in 10:00 source source source source AM PLANNIN data data data data G VISIT SPECIME URINE No No No No November 27 N informa informa informa informa 2013 SOURCE tion in tion in tion in tion in 10:00 source source source source AM data data data data PREGNAN NO No No No No November 27 T informa informa informa informa 2013 tion in tion in tion in tion in 10:00 source source source source AM data data data data CHART 400-45- No No No No November 27 NUMBER [id number] informa informa informa informa 2013 tion in tion in tion in tion in 10:00 source source source source AM data data data data Chlamyd Pending No No No No November 27 ia informa informa informa informa 2013 trachom tion in tion in tion in tion in 10:00 atis source source source source AM rRNA data data data data [Presen ce] in Unspeci fied specime n by Probe & target amplifi cation method Neisser Pending No No No \.br\November 27 ia informa informa informa is 2013 gonorrh tion in tion in tion in report 10:00 oeae source source source contain AM rRNA data data data s [Presen patient ce] in Unspeci informa fied tion specime that n by must be Probe & target protect ed in amplifi accorda cation nce method with the Health Insuran ce Portabi lity and Account ability Act. 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 No No No No Aug 15 OR informa informa informa informa 2013 tion in tion in tion in tion in 11:30 source source source source AM data data data data ETHNICI WHITE, No No No No Aug 15 TY NON-HIS informa informa informa informa 2013 PANIC tion in tion in tion in tion in 11:30 source source source source AM data data data data KIT 2012- No No No No Aug 15 EXPIRAT -31 informa informa informa informa 2013 ION tion in tion in tion in tion in 11:30 DATE source source source source AM data data data data SYMPTOM NO No No No No Aug 15 S informa informa informa informa 2013 tion in tion in tion in tion in 11:30 source source source source AM data data data data REASON REVISIT No No No No Aug 15 FOR /ANNUAL informa informa informa informa 2013 REQUEST FAMILY tion in tion in tion in tion in 11:30 source source source source AM PLANNIN data data data data G VISIT SPECIME FEMALE No No No No Aug 15 N ENDOCER informa informa informa informa 2013 SOURCE VICAL tion in tion in tion in tion in 11:30 source source source source AM data data data data PREGNAN NO No No No No Aug 15 T informa informa informa informa 2013 tion in tion in tion in tion in 11:30 source source source source AM data data data data CHART 400-45- No No No No Aug 15 NUMBER [id number] informa informa informa informa 2013 tion in tion in tion in tion in 11:30 source source source source AM data data data data Chlamyd NEGATIV No No No NEGATIV Aug 15 ia E informa informa informa E 2013 trachom tion in tion in tion in RESULT= 11:30 atis source source source WITHIN AM rRNA data data data NORMAL [Presen ce] in LIMITSP Unspeci OSITIVE fied specime RESULT= n by Probe & ABNORMA target LEQUIVO OSCAR amplifi RESULT= cation method INDETER MINATEU NSATISF ACTORY RESULT= INVALID Neisser NEGATIV No No No NEGATIV Aug 15 ia E informa informa informa E 2013 gonorrh tion in tion in tion in RESULT= 11:30 oeae source source source WITHIN AM rRNA data data data NORMAL [Presen ce] in LIMITSP Unspeci OSITIVE fied specime RESULT= n by Probe & ABNORMA target LEQUIVO OSCAR amplifi RESULT= cation method INDETER MINATEU NSATISF ACTORY RESULT= INVALID THE APTIMA COMBO 2 ASSAY IS NOT INTENDE D FOR THE EVALUAT ION OF SUSPECT EDSEXUA L ABUSE OR FOR OTHER MEDICO- LEGAL INDICAT IONS. FOR THOSE PATIENT S FORWHOM A FALSE POSITIV E RESULT MAY HAVE ADVERSE PSYCHO- SOCIAL IMPACT, [facility] MMENDS RETESTI NG.\.br \This report contain s patient informa tion that must be protect ed in accorda nce with the Health Insuran ce Portabi lity and Account ability Act. 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 No No No No Aug 15 OR informa informa informa informa 2013 tion in tion in tion in tion in 11:30 source source source source AM data data data data ETHNICI WHITE, No No No No Aug 15 TY NON-HIS informa informa informa informa 2013 PANIC tion in tion in tion in tion in 11:30 source source source source AM data data data data KIT 2012- No No No No Aug 15 EXPIRAT -31 informa informa informa informa 2013 ION tion in tion in tion in tion in 11:30 DATE source source source source AM data data data data SYMPTOM NO No No No No Aug 15 S informa informa informa informa 2013 tion in tion in tion in tion in 11:30 source source source source AM data data data data REASON REVISIT No No No No Aug 15 FOR /ANNUAL informa informa informa informa 2013 REQUEST FAMILY tion in tion in tion in tion in 11:30 source source source source AM PLANNIN data data data data G VISIT SPECIME FEMALE No No No No Aug 15 N ENDOCER informa informa informa informa 2013 SOURCE VICAL tion in tion in tion in tion in 11:30 source source source source AM data data data data PREGNAN NO No No No No Aug 15 T informa informa informa informa 2013 tion in tion in tion in tion in 11:30 source source source source AM data data data data CHART 400-45- No No No No Aug 15 NUMBER [id number] informa informa informa informa 2013 tion in tion in tion in tion in 11:30 source source source source AM data data data data Chlamyd Pending No No No No Aug 15 ia informa informa informa informa 2013 trachom tion in tion in tion in tion in 11:30 atis source source source source AM rRNA data data data data [Presen ce] in Unspeci fied specime n by Probe & target amplifi cation method Neisser Pending No No No \.br\Aug 15 ia informa informa informa is 2013 gonorrh tion in tion in tion in report 11:30 oeae source source source contain AM rRNA data data data s [Presen patient ce] in Unspeci informa fied tion specime that n by must be Probe & target protect ed in amplifi accorda cation nce method with the Health Insuran ce Portabi lity and Account ability Act. CHLAMYDIA AND GONORRHEA TESTING Observa Value Referen Units Interpr Notes Date tion ce etation Range COLLECT GENPROB No No No No Jul 29 OR E informa informa informa informa 2012 tion in tion in tion in tion in 3:27 PM source source source source data data data data ETHNICI WHITE, No No No No Jul 29 TY NON-HIS informa informa informa informa 2012 PANIC tion in tion in tion in tion in 3:27 PM source source source source data data data data KIT 2012-01 No No No No Jul 29 EXPIRAT -31 informa informa informa informa 2012 ION tion in tion in tion in tion in 3:27 PM DATE source source source source data data data data SYMPTOM NO No No No No Jul 29 S informa informa informa informa 2012 tion in tion in tion in tion in 3:27 PM source source source source data data data data REASON INITIAL No No No No Jul 29 FOR FAMILY informa informa informa informa 2012 REQUEST tion in tion in tion in tion in 3:27 PM PLANNIN source source source source G VISIT data data data data SPECIME FEMALE No No No No Jul 29 N ENDOCER informa informa informa informa 2012 SOURCE VICAL tion in tion in tion in tion in 3:27 PM source source source source data data data data PREGNAN NO No No No No Jul 29 T informa informa informa informa 2012 tion in tion in tion in tion in 3:27 PM source source source source data data data data CHART [id number] No No No No Jul 29 NUMBER 11 informa informa informa informa 2012 tion in tion in tion in tion in 3:27 PM source source source source data data data data Chlamyd NEGATIV No No No NEGATIV Jul 29 ia E informa informa informa E 2012 trachom tion in tion in tion in RESULT= 3:27 PM atis source source source WITHIN rRNA data data data NORMAL [Presen ce] in LIMITSP Unspeci OSITIVE fied specime RESULT= n by Probe & ABNORMA target LEQUIVO OSCAR amplifi RESULT= cation method INDETER MINATEU NSATISF ACTORY RESULT= INVALID Neisser NEGATIV No No No NEGATIV Jul 29 ia E informa informa informa E 2012 gonorrh tion in tion in tion in RESULT= 3:27 PM oeae source source source WITHIN rRNA data data data NORMAL [Presen ce] in LIMITSP Unspeci OSITIVE fied specime RESULT= n by Probe & ABNORMA target LEQUIVO OSCAR amplifi RESULT= cation method INDETER MINATEU NSATISF ACTORY RESULT= INVALID EFFECTI VE NOVEMBE R 2009: THE APTIMA COMBO 2 NUCLEIC ACIDAMP LIFICAT ION ASSAY IS NOT INTENDE D FOR THE EVALUAT ION OFSUSPE CTED SEXUAL ABUSE OR FOR OTHER MEDICO- LEGAL INDICAT IONS.FA LSE POSITIV E RESULTS ARE POSSIBL E.\.br\ This report contain s patient informa tion that must be protect ed in accorda nce with the Health Insuran ce Portabi lity and Account ability Act. CHLAMYDIA AND GONORRHEA TESTING Observa Value Referen Units Interpr Notes Date tion ce etation Range COLLECT GENPROB No No No No Jul 29 OR E informa informa informa informa 2012 tion in tion in tion in tion in 3:27 PM source source source source data data data data ETHNICI WHITE, No No No No Jul 29 TY NON-HIS informa informa informa informa 2012 PANIC tion in tion in tion in tion in 3:27 PM source source source source data data data data KIT 2012-01 No No No No Jul 29 EXPIRAT -31 informa informa informa informa 2012 ION tion in tion in tion in tion in 3:27 PM DATE source source source source data data data data SYMPTOM NO No No No No Jul 29 S informa informa informa informa 2012 tion in tion in tion in tion in 3:27 PM source source source source data data data data REASON INITIAL No No No No Jul 29 FOR FAMILY informa informa informa informa 2012 REQUEST tion in tion in tion in tion in 3:27 PM PLANNIN source source source source G VISIT data data data data SPECIME FEMALE No No No No Jul 29 N ENDOCER informa informa informa informa 2012 SOURCE VICAL tion in tion in tion in tion in 3:27 PM source source source source data data data data PREGNAN NO No No No No Jul 29 T informa informa informa informa 2012 tion in tion in tion in tion in 3:27 PM source source source source data data data data CHART [id number] No No No No Jul 29 NUMBER 11 informa informa informa informa 2012 tion in tion in tion in tion in 3:27 PM source source source source data data data data Chlamyd Pending No No No No Jul 29 ia informa informa informa informa 2012 trachom tion in tion in tion in tion in 3:27 PM atis source source source source rRNA data data data data [Presen ce] in Unspeci fied specime n by Probe & target amplifi cation method Neisser Pending No No No \.br\Jul 29 ia informa informa informa is 2011 gonorrh tion in tion in tion in report 3:27 PM oeae source source source contain rRNA data data data s [Presen patient ce] in Unspeci informa fied tion specime that n by must be Probe & target protect ed in amplifi accorda cation nce method with the Health Insuran ce Portabi lity and Account ability Act.
--- OUTSIDE RECORDS SUMMARY | 2017-06-08 19:05 | External Medical Summary Rpt ---
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 informa 2015 FIG WASHER tion in tion in tion in tion [...] MAY HAVE ADVERSE PSYCHO- SOCIAL IMPACT, [facility].\.br \This report contain s patient informa tion that must be protect ed in accorda nce with the Health Insuran ce Portabi lity and Account ability Act. CHLAMYDIA AND GONORRHEA TESTING Observa Value Referen Units Interpr Notes Date tion ce etation Range COLLECT PT/M F No No No No Dec 2 OR FORD informa informa informa informa 2015 FIG WASHER tion in tion in tion in tion [...] Notes Date tion ce etation Range COLLECT FIG WASHER No No No No Aug 15 OR [...] MAY HAVE ADVERSE PSYCHO- SOCIAL IMPACT, [facility].\.br \This report contain s patient informa tion that must be protect ed in accorda nce with the Health Insuran ce Portabi lity and Account ability Act. CHLAMYDIA AND GONORRHEA TESTING Observa Value Referen Units Interpr Notes Date tion ce etation Range COLLECT FIG WASHER No No No No Aug 15 OR [...] source source data data data data CHART [id number] No No No No Jul 29 NUMBER [...] source source data data data data CHART [id number] No No No No Jul 29 NUMBER [...]
[2017-06-08 19:28] LABS: LYMPH # 1.8 K/mm3 (0.7-4.5)
[2017-06-08 19:33] LABS: HEMOGLOBIN 14.7 g/dL (12.2-16.2)
[2017-06-08] MEDS ORDERED: ETODOLAC200 MG PO (20:53)
[2017-06-08] MEDS ORDERED: BACTRIM DS 8001 TA1 PO (20:53)
[2017-06-08 22:23] VITALS: BP 117/78
== END 2017-06-08 22:24 | disposition left against medical advice (07) ==
LOC: ER 18:15
PROVIDERS: Emergency Medicine
DX: L03.115 Cellulitis of right lower limb (principal); L03.111 Cellulitis of right axilla; Z88.8 Allergy status to other drugs, medicaments and biological substances; F17.210 Nicotine dependence, cigarettes, uncomplicated
CPT/HCPCS: J2405; J3370